=== PATIENT | male | born 1975 | race American Indian/Alaskan Native ===

== ENCOUNTER 2018-09-10 00:56 | Emergency (ER) | payer MEDICARE ==
[2018-09-10 01:34] LABS: Hematocrit 21.3 % (35.5-45.6); Hemoglobin 7.5 gm/dl (11.8-15.2); Mean Corpuscular HGB Conc 35 % (32-34); Mean Corpuscular Volume 102 fl (84-94); Platelet Count 348 K/mm3 (140-440); Red Blood Count 2.08 M/mm3 (3.65-5.03); Red Cell Distribution Width 28.1 % (13.2-15.2)
[2018-09-10 02:15] LABS: Anisocytosis 2+; Band Neutrophils # (Manual) 0.1 K/mm3; Basophils % (Manual) 0 % (0.0-1.8); Hypochromasia 1+; Myelocytes # (Manual) 0.1 K/mm3; Total Cells Counted 100
[2018-09-10 02:16] LABS: Basophilic Stippling 1+; Giant Platelets Few; Ovalocytes Few; Schistocytes 2+; Target Cells 1+
[2018-09-10 02:17] LABS: Howell-Jolly Bodies Few; Large Platelets 1+
[2018-09-10 02:20] VITALS: BP 108/43
--- NOTE | 2018-09-10 03:01 | Emergency Department Report ---
ED General Adult HPI - General Chief complaint: Sickle Cell Crisis Stated complaint: SICKLE CELL PAIN Time Seen by Provider: 09/10/18 02:47 Source: patient, RN notes reviewed, old records reviewed Mode of arrival: Ambulatory Limitations: No Limitations - History of Present Illness Initial comments: This is a 43-year-old gentleman with a reported history of sickle cell disease, reported history of anxiety, depression, and suspected history of substance abuse. Patient presents to the emergency room today with complaint of sickle cell pain. He reports his pain has been present for about the past 4-5 hours. He reports upper, lower extremity pain, and body pain. Denies fevers, chills, chest pain, shortness of breath, urinary symptoms. Reports that he recently moved here from [place]. Reports that he does not have a current pain specialist. Patient reports that his pain increases with palpation, range of motion, decreases with rest, and pain medication. -: Gradual Location: left, right, upper extremity, lower extremity Radiation: non-radiation Severity scale (0 -10): 9 Quality: aching Consistency: other Improves with: other Worsens with: other - Related Data Previous Rx's Medication Instructions Recorded Last Taken Type Oxycodone HCl [Roxicodone] 30 mg PO Q6H #12 tablet 05/30/18 Unknown Rx Folic Acid [Folvite] 1 mg PO DAILY #15 tablet 09/10/18 Unknown Rx Hydroxyurea [Hydrea] 500 mg PO BID #30 capsule 09/10/18 Unknown Rx Allergies Allergy/AdvReac Type Severity Reaction Status Date / Time acetaminophen [From Tylenol] Allergy Hives Verified 06/13/18 14:00 fentanyl Allergy Unknown Verified 09/10/18 00:59 ketorolac [From Toradol] Allergy Unknown Verified 09/10/18 00:59 morphine Allergy Unknown Verified 09/10/18 00:59 tramadol Allergy Unknown Verified 09/10/18 00:59 ED Review of Systems ROS: Stated complaint: SICKLE CELL PAIN Other details as noted in HPI Constitutional: malaise. denies: fever Eyes: denies: eye discharge ENT: denies: epistaxis Respiratory: denies: cough Cardiovascular: denies: chest pain Genitourinary: denies: dysuria Musculoskeletal: back pain, arthralgia, myalgia Skin: denies: lesions Neurological: weakness Psychiatric: anxiety ED Past Medical Hx - Past Medical History Previous Medical History?: Yes Hx Sickle Cell Disease: Yes Hx Psychiatric Treatment: Yes (anxiety, depression) - Surgical History Hx Cholecystectomy: Yes Additional Surgical History: port-a-cath placed and removed - Social History Smoking Status: Current Every Day Smoker Substance Use Type: None - Medications Home Medications: Home Medications Medication Instructions Recorded Confirmed Last Taken Type Oxycodone HCl [Roxicodone] 30 mg PO Q6H #12 tablet 05/30/18 07/10/18 Unknown Rx Folic Acid [Folvite] 1 mg PO DAILY #15 tablet 09/10/18 Unknown Rx Hydroxyurea [Hydrea] 500 mg PO BID #30 capsule 09/10/18 Unknown Rx ED Physical Exam - General Limitations: No Limitations General appearance: alert, in no apparent distress, other (upon entering the room, the patient is sleeping, and in no acute distress.) - Head Head exam: Present: atraumatic, normocephalic - Eye Eye exam: Present: normal appearance, EOMI. Absent: nystagmus - ENT ENT exam: Present: normal exam, normal orophraynx, mucous membranes moist, normal external ear exam - Neck Neck exam: Present: normal inspection, full ROM. Absent: tenderness, meningismus - Respiratory Respiratory exam: Present: normal lung sounds bilaterally. Absent: respiratory distress - Cardiovascular Cardiovascular Exam: Present: regular rate, normal rhythm, normal heart sounds. Absent: bradycardia, irregular rhythm, systolic murmur, diastolic murmur, rubs, gallop - GI/Abdominal GI/Abdominal exam: Present: soft. Absent: distended, tenderness, guarding, rebound, rigid, pulsatile mass - Rectal Rectal exam: Present: deferred - Extremities Exam Extremities exam: Present: normal inspection, full ROM, other (2+ pulses noted in the bilateral upper, lower extremities. Compartments soft. No long bony tenderness. The pelvis is stable.). Absent: pedal edema, joint swelling, calf tenderness - Back Exam Back exam: Present: normal inspection, full ROM. Absent: tenderness, CVA tenderness (R), paraspinal tenderness, vertebral tenderness - Neurological Exam Neurological exam: Present: alert, other (Extraocular movements intact. Tongue midline. No facial droop. Facial sensation intact to light touch in the V1, V2, V3 distribution bilaterally. 5 and 5 strength in 4 extremities.. Sensation is intact to light touch in 4 extremities.). Absent: motor sensory deficit - Psychiatric Psychiatric exam: Present: normal affect, normal mood - Skin Skin exam: Present: warm, dry, intact, normal color. Absent: rash ED Course Vital Signs 09/10/18 09/10/18 01:00 02:15 Temperature 98.4 F 98.3 F Pulse Rate 87 Respiratory 18 18 Rate Blood Pressure 118/40 Blood Pressure 108/43 [Left] O2 Sat by Pulse 95 98 Oximetry ED Medical Decision Making - Lab Data Result diagrams: 09/10/18 01:14 Vital Signs 09/10/18 09/10/18 01:00 02:15 Temperature 98.4 F 98.3 F Pulse Rate 87 Respiratory 18 18 Rate Blood Pressure 118/40 Blood Pressure 108/43 [Left] O2 Sat by Pulse 95 98 Oximetry Lab Results 09/10/18 Range/Units 01:14 WBC 12.1 H (4.5-11.0) K/mm3 RBC 2.08 L (3.65-5.03) M/mm3 Hgb 7.5 L (11.8-15.2) gm/dl Hct 21.3 L (35.5-45.6) % MCV 102 H (84-94) fl MCH 36 H (28-32) pg MCHC 35 H (32-34) % RDW 28.1 H (13.2-15.2) % Plt Count 348 (140-440) K/mm3 Add Manual Diff Complete Total Counted 100 Seg Neuts % (Manual) 82.0 H (40.0-70.0) % Band Neutrophils % 1.0 % Lymphocytes % (Manual) 13.0 L (13.4-35.0) % Reactive Lymphs % (Man) 0 % Monocytes % (Manual) 2.0 (0.0-7.3) % Eosinophils % (Manual) 1.0 (0.0-4.3) % Basophils % (Manual) 0 (0.0-1.8) % Metamyelocytes % 0 % Myelocytes % 1.0 % Promyelocytes % 0 % Blast Cells % 0 % Nucleated RBC % 5.0 H (0.0-0.9) % Seg Neutrophils # Man 9.9 H (1.8-7.7) K/mm3 Band Neutrophils # 0.1 K/mm3 Lymphocytes # (Manual) 1.6 (1.2-5.4) K/mm3 Abs React Lymphs (Man) 0.0 K/mm3 Monocytes # (Manual) 0.2 (0.0-0.8) K/mm3 Eosinophils # (Manual) 0.1 (0.0-0.4) K/mm3 Basophils # (Manual) 0.0 (0.0-0.1) K/mm3 Metamyelocytes # 0.0 K/mm3 Myelocytes # 0.1 K/mm3 Promyelocytes # 0.0 K/mm3 Blast Cells # 0.0 K/mm3 WBC Morphology Not Reportable Hypersegmented Neuts Not Reportable Hyposegmented Neuts Not Reportable Hypogranular Neuts Not Reportable Smudge Cells Not Reportable Toxic Granulation Not Reportable Toxic Vacuolation Not Reportable Dohle Bodies Not Reportable Pelger-Huet Anomaly Not Reportable Hansel Rods Not Reportable Platelet Estimate Appears normal Clumped Platelets Not Reportable Plt Clumps, EDTA Not Reportable Large Platelets 1+ Giant Platelets Few Platelet Satelliting Not Reportable Plt Morphology Comment Not Reportable RBC Morphology Not Reportable Dimorphic RBCs Not Reportable Polychromasia 2+ Hypochromasia 1+ Poikilocytosis Not Reportable Basophilic Stippling 1+ Anisocytosis 2+ Microcytosis Not Reportable Macrocytosis Not Reportable Spherocytes Not Reportable Pappenheimer Bodies Not Reportable Sickle Cells Not Reportable Target Cells 1+ Tear Drop Cells Not Reportable Ovalocytes Few Helmet Cells Not Reportable [place] Bodies Few [place] Rings Not Reportable Dyan Cells Not Reportable Bite Cells Not Reportable Crenated Cell Not Reportable Elliptocytes 1+ Acanthocytes (Spur) Not Reportable Rouleaux Not Reportable Hemoglobin C Crystals Not Reportable Schistocytes 2+ Malaria parasites Not Reportable Percent Retic 14.76 H (0.78-2.58) % Nato Bodies Not Reportable Hem Pathologist Commnt No - Medical Decision Making Differential diagnosis, including but not limited to: Sickle cell trait, sickle cell disease chronic sickle cell, narcotic dependent Assessment and plan: 43-year-old gentleman with a reported history of sickle cell disease. The patient is afebrile with reassuring vital signs. He walks back to the room with no difficulty. When I go in to assess the patient, he is sleeping comfortably, and in no acute distress. He is apparently allergic to multiple medications. He does not appear to have an emergent medical condition at this time. The [place] prescription database was reviewed and consulted. 08/21/2018 2 08/21/2018 OXYCODONE HCL 5 MG TABLET 6.0 1 AU PHA [id number] AU ME ([id number]) 0 45.0 MME Comm Ins [place] 05/01/2018 5 05/01/2018 OXYCODONE HCL 30 MG TABLET 24.0 6 SH POD [id number] JUDD ([id number]) 0 180.0 MME Private Pay [place] 04/21/2018 2 04/21/2018 OXYCODONE-ACETAMINOPHEN 5-325 10.0 3 NE RONNI [id number] [facility] ([id number]) 0 25.0 MME Medicare [place] 03/25/2018 3 03/25/2018 OXYCODONE HCL 5 MG TABLET 25.0 3 JA CAT [id number] [facility] ([id number]) 0 62.5 [place] 02/17/2018 2 02/07/2018 OXYCODONE HCL 10 MG TABLET 20.0 5 PH RAE [id number] [facility] ([id number]) 0 60.0 [place] 02/10/2018 4 01/31/2018 OXYCODONE HCL 10 MG TABLET 20.0 5 FI RICARDO [id number] [facility] ([id number]) 0 60.0 [place] 10/22/2017 1 10/22/2017 OXYCODONE HCL 5 MG TABLET 44.0 7 AU PHA [id number] BARNE ([id number]) 0 47.14 MME Comm Ins [place] 09/17/2017 5 09/17/2017 OXYCODONE HCL 5 MG TABLET 20.0 3 ALEXEY PRE [id number] JUDD ([id number]) 0 50.0 MME Private Pay The patient will be referred to an outpatient pain specialist and byproducts supervisor. As per review of old prescriptions, he has been given oxycodone in the past. Therefore, he will be given oral oxycodone as a single dose in the emergency room, and he will be discharged with folic acid, hydroxyurea, and instructions to follow up with a pain specialist or byproducts supervisor. Critical care attestation.: If time is entered above; I have spent that time in minutes in the direct care of this critically ill patient, excluding procedure time. ED Disposition Clinical Impression: History of sickle cell disease Disposition: DC- TO HOME OR SELFCARE Is pt being admited?: No Does the pt Need Aspirin: No Condition: Stable Instructions: Sickle Cell Crisis (ED) Additional Instructions: Take the medications as needed/directed. Follow up with the primary care doctor , byproducts supervisor or pain specialist as soon as possible to initiate outpatient primary care and pain management. Please return to the emergency room right away with new, worsening or different symptoms. Referrals: TEQUILA SALAS DO [Staff Physician] - 3-5 Days CINDY GAMBLE MD [Staff Physician] - 3-5 Days MICAELA ROBERSON MD [Staff Physician] - 3-5 Days
[2018-09-10] MEDS ORDERED: ROXICODONE PO ONE (03:11)
[2018-09-10 09:56] LABS: Basophils # (Auto) 0.1 K/mm3 (0.0-0.1); Eosinophils # (Auto) 0.1 K/mm3 (0.0-0.4); Eosinophils % (Auto) 0.7 % (0.0-4.3); Monocytes % (Auto) 8.3 % (0.0-7.3)
== END 2018-09-10 03:52 | disposition home or self-care (01) ==
LOC: ED 00:56
DX: D57.1 Sickle-cell disease without crisis (principal); F41.9 Anxiety disorder, unspecified; F32.9 Major depressive disorder, single episode, unspecified; F17.200 Nicotine dependence, unspecified, uncomplicated; Z88.5 Allergy status to narcotic agent; Z88.6 Allergy status to analgesic agent; Z88.8 Allergy status to other drugs, medicaments and biological substances
CPT/HCPCS: 36415; 85007; 85025; 85045

== ENCOUNTER 2018-10-01 01:40 | Emergency (ER) | payer MEDICARE ==
[2018-10-01 02:14] VITALS: BP 107/54
[2018-10-01] MEDS ORDERED: D5NS 0.2% 1,000 ML IV SCH (03:00)
== END 2018-10-01 02:59 | disposition left against medical advice (07) ==
LOC: ED 01:40
DX: D57.819 Other sickle-cell disorders with crisis, unspecified (principal); Z53.21 Procedure and treatment not carried out due to patient leaving prior to being seen by health care provider

== ENCOUNTER 2019-04-17 20:51 | Emergency (ER) | payer MEDICARE ==
--- NOTE | 2019-04-17 21:13 | Event Note ---
ED Screening Note Date of service: 04/17/19 Time: 21:09 ED Screening Note: This is a 43 y.o. M. that presents to the ER with generalized pain. Patient states he was discharged from [facility] after hydration. Reports worsening generalized pain. This initial assessment/diagnostic orders/clinical plan/treatment(s) is/are subject to change based on patients health status, clinical progression and re- assessment by fellow clinical providers in the ED. Further treatment and workup at subsequent clinical providers discretion. Patient/guardian urged not to elope from the ED as their condition may be serious if not clinically assessed and managed. Initial orders include: Labs
[2019-04-17 21:14] VITALS: BP 104/67
== END 2019-04-17 22:00 | disposition left against medical advice (07) ==
LOC: ED 20:51
DX: M79.10 Myalgia, unspecified site (principal); Z53.21 Procedure and treatment not carried out due to patient leaving prior to being seen by health care provider

== ENCOUNTER 2019-05-29 21:47 | Emergency (ER) | payer MEDICARE ==
--- NOTE | 2019-05-29 22:00 | Emergency Department Report ---
Blank Doc - Documentation Documentation: 43 y/o male with reported sicke cell c/o of diffuse aches and pain. No sob, he adache or chest pain This initial assessment/diagnostic orders/clinical plan/treatment(s) is/are subject to change based on patient's health status, clinical progression and re- assessment by fellow clinical providers in the ED. Further treatment and workup at subsequent clinical providers discretion. Patient/guardians urged not to elope from the ED as their condition may be serious if not clinically assessed and managed. Initial orders include:
[2019-05-29 23:51] LABS: Basophils # (Auto) 0.2 K/mm3 (0.0-0.1); Basophils % (Auto) 1.7 % (0.0-1.8); Eosinophils # (Auto) 0.2 K/mm3 (0.0-0.4); Eosinophils % (Auto) 1.8 % (0.0-4.3); Hematocrit 27.7 % (35.5-45.6); Hemoglobin 9.5 gm/dl (11.8-15.2); Lymphocytes # (Auto) 1.8 K/mm3 (1.2-5.4); Lymphocytes % (Auto) 18.5 % (13.4-35.0); Mean Corpuscular HGB Conc 34 % (32-34); Mean Corpuscular Volume 105 fl (84-94); Monocytes % (Auto) 10.3 % (0.0-7.3); Platelet Count 340 K/mm3 (140-440); Red Blood Count 2.64 M/mm3 (3.65-5.03)
[2019-05-29 23:57] LABS: Red Cell Distribution Width 24.5 % (13.2-15.2)
[2019-05-30] MEDS ORDERED: BENADRYL IM ONE (01:17)
[2019-05-30] MEDS ORDERED: DILAUDID IM ONE ×2 (01:17→02:38)
[2019-05-30] MEDS ORDERED: ZOFRAN ODT PO ONE (01:17)
[2019-05-30] MEDS ORDERED: BENADRYL PO ONE (01:17)
--- NOTE | 2019-05-30 01:21 | Emergency Department Report ---
ED General Adult HPI - General Chief complaint: Sickle Cell Crisis Stated complaint: SICKLE CELL CRISIS Time Seen by Provider: 05/29/19 21:59 Source: patient, EMS Mode of arrival: Wheelchair Limitations: Physical Limitation - History of Present Illness Initial comments: 43-year-old male with a past medical history of sickle cell disease presents to the hospital complaints of pain secondary to sickle cell crisis started 1 hour prior to arrival. Complains of pain to bilateral knees, hips, shoulders, and ribs rated 10/10 in intensity. Patient taken oxycodone 10 mg without improvement. He denies fever or shortness of breath. 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 Patient moved here from [facility] 2 months ago and does not have a local float builder. His first visit with a float builder as scheduled for June 24. She does not have a port. Patient does not have a port. 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 - Related Data Previous Rx's Medication Instructions Recorded Last Taken Type Oxycodone HCl [Roxicodone] 30 mg PO Q6H #12 tablet 05/30/18 Unknown Rx Folic Acid [Folvite] 1 mg PO DAILY #15 tablet 09/10/18 Unknown Rx Hydroxyurea [Hydrea] 500 mg PO BID #30 capsule 09/10/18 Unknown Rx Oxycodone HCl [oxyCODONE] 10 mg PO Q6H PRN #15 tablet 05/30/19 Unknown Rx Allergies Allergy/AdvReac Type Severity Reaction Status Date / Time acetaminophen [From Tylenol] Allergy Hives Verified 06/13/18 14:00 fentanyl Allergy Unknown Verified 09/10/18 00:59 ketorolac [From Toradol] Allergy Unknown Verified 09/10/18 00:59 morphine Allergy Unknown Verified 09/10/18 00:59 tramadol Allergy Unknown Verified 09/10/18 00:59 ED Review of Systems ROS: Stated complaint: SICKLE CELL CRISIS Other details as noted in HPI Comment: All other systems reviewed and negative ED Past Medical Hx - Past Medical History Previous Medical History?: Yes Hx Sickle Cell Disease: Yes Hx Psychiatric Treatment: Yes (anxiety, depression) Additional medical history: DVT bilateral - Surgical History Past Surgical History?: Yes Hx Cholecystectomy: Yes Additional Surgical History: port-a-cath placed and removed - Social History Smoking Status: Never Smoker Substance Use Type: None - Medications Home Medications: Home Medications Medication Instructions Recorded Confirmed Last Taken Type Oxycodone HCl [Roxicodone] 30 mg PO Q6H #12 tablet 05/30/18 07/10/18 Unknown Rx Folic Acid [Folvite] 1 mg PO DAILY #15 tablet 09/10/18 Unknown Rx Hydroxyurea [Hydrea] 500 mg PO BID #30 capsule 09/10/18 Unknown Rx Oxycodone HCl [oxyCODONE] 10 mg PO Q6H PRN #15 tablet 05/30/19 Unknown Rx ED Physical Exam - General Limitations: Physical Limitation - Other Other exam information: General: No acute distress Head: Atraumatic Eyes: normal appearance ENT: Moist mucous membranes Neck: Normal appearance, no midline tenderness Chest: Clear to auscultation bilaterally CV: Regular rate and rhythm Abdomen: Soft, normal bowel sounds, nontender, nondistended, no rebound or guarding Back: Normal inspection Extremity: Normal inspection infection, pain with movement of bilateral hips Neuro: Alert O x 3, no facial asymmetry, speech clear, no gross motor sensory deficit Psych: Appropriate behavior Skin: No rash ED Course Vital Signs 05/29/19 05/30/19 05/30/19 21:52 01:29 01:30 Temperature 98.4 F 98.6 F Pulse Rate 84 60 Respiratory 18 14 Rate Blood Pressure 98/53 102/46 Blood Pressure 100/52 [Left] O2 Sat by Pulse 97 99 98 Oximetry 05/30/19 05/30/19 05/30/19 02:00 02:30 03:30 Temperature Pulse Rate Respiratory Rate Blood Pressure 102/50 101/40 100/52 Blood Pressure [Left] O2 Sat by Pulse 98 98 Oximetry 05/30/19 04:00 Temperature Pulse Rate Respiratory Rate Blood Pressure 102/53 Blood Pressure [Left] O2 Sat by Pulse Oximetry - Reevaluation(s) Reevaluation #1: 05/30/19 01:21 Patient declines IV access at this time stating he is a hard stick and prefers IM medication. Informed him that we are unable to hydrate him 05/30/19 05:42 ED stay patient was eventually agreeable to receiving IV and received additional IV Dilaudid in addition to IV fluids. Pain is controlled at this time he will be discharged. ED Medical Decision Making - Lab Data Result diagrams: 05/29/19 23:04 Lab Results 10/25/19 Range/Units 23:04 WBC 9.7 (4.5-11.0) K/mm3 RBC 2.64 L (3.65-5.03) M/mm3 Hgb 9.5 L (11.8-15.2) gm/dl Hct 27.7 L (35.5-45.6) % MCV 105 H (84-94) fl MCH 36 H (28-32) pg MCHC 34 (32-34) % RDW 24.5 H (13.2-15.2) % Plt Count 340 (140-440) K/mm3 Lymph % (Auto) 18.5 (13.4-35.0) % [place] % (Auto) 10.3 H (0.0-7.3) % Eos % (Auto) 1.8 (0.0-4.3) % Baso % (Auto) 1.7 (0.0-1.8) % Lymph # 1.8 (1.2-5.4) K/mm3 [place]s # 1.0 H (0.0-0.8) K/mm3 Eos # 0.2 (0.0-0.4) K/mm3 Baso # 0.2 H (0.0-0.1) K/mm3 Seg Neutrophils % 67.7 (40.0-70.0) % Seg Neutrophils # 6.6 (1.8-7.7) K/mm3 Percent Retic 9.50 H (0.78-2.58) % - Medical Decision Making [place] prescriptive monitoring [place]. Patient has multiple prescribers for narcotics. Patient states this is because he does not have a float builder. Most recently on 05/28 patient had 20 tabs of oxycodone 10 prescribed which should last 5 days. 05/22 patient also received a prescription for both oxycodone 10 mg ER (#14) and oxycodone 10 mg. (#16) No signs of infection or significant anemia requiring transfusion at this time - Differential Diagnosis pain crisis, anemia, narcotic dependent Critical Care Time: No Critical care attestation.: If time is entered above; I have spent that time in minutes in the direct care of this critically ill patient, excluding procedure time. ED Disposition Clinical Impression: Sickle cell crisis, Narcotic dependence Disposition: - TO HOME OR SELFCARE Is pt being admited?: No Does the pt Need Aspirin: No Condition: Stable Instructions: Sickle Cell Crisis (ED) Additional Instructions: Take the medication as prescribed. Follow-up with your doctor or doctor/clinic provided. Return if symptoms worsen as indicated by your discharge instructions. Prescriptions: Oxycodone HCl [oxyCODONE] 10 mg PO Q6H PRN #15 tablet PRN Reason: Pain Referrals: [facility] MD TING [Primary Care Provider] - 3-5 Days TEQUILA SALAS DO [Staff Physician] - 3-5 Days (float builder ) Time of Disposition: 05:42
[2019-05-30] MEDS ORDERED: D5NS 0.2% 1,000 ML IV SCH (04:00)
[2019-05-30] MEDS ORDERED: DILAUDID IV ONE (04:22)
[2019-05-30 04:42] VITALS: BP 102/53
== END 2019-05-30 06:00 | disposition home or self-care (01) ==
LOC: ED 21:47
DX: D57.00 Hb-SS disease with crisis, unspecified (principal); F11.20 Opioid dependence, uncomplicated; F41.9 Anxiety disorder, unspecified; F32.9 Major depressive disorder, single episode, unspecified; Z88.5 Allergy status to narcotic agent; Z88.8 Allergy status to other drugs, medicaments and biological substances; Z79.899 Other long term (current) drug therapy; Z90.49 Acquired absence of other specified parts of digestive tract
CPT/HCPCS: 36415; 85025; 85045; 96372; 96374; 99284; J1170; J1200; Q0162

== ENCOUNTER 2019-12-10 12:10 | Inpatient (IN) | payer MEDICARE ==
[2019-12-10] MEDS ORDERED: diphenhydrAMINE 50 MG/ML VIAL IV ONE (12:46)
[2019-12-10] MEDS ORDERED: ONDANSETRON 4 MG/2 ML INJ IV ONE (12:46)
[2019-12-10] MEDS ORDERED: HYDROmorphone 1 MG/1 ML INJ IV ONE ×3 (12:46→17:23)
--- NOTE | 2019-12-10 12:46 | Emergency Department Report ---
ED General Adult HPI - General Chief complaint: Sickle Cell Crisis Stated complaint: SICKLE CELL Time Seen by Provider: 12/10/19 12:25 Source: patient Mode of arrival: Wheelchair Limitations: No Limitations - History of Present Illness Initial comments: Mr. Cuadra is a 44 yo male with hx of SCD Hgb SS disease who presents with diffuse pain since this morning. Denies fever, cough or chest pain. Severe 10/10 pain. Recently moved from [place] 3 months ago after the of his father. No PCP or clinical research assistant. During the pandemic, he has struggled to find a physician for outpatient care. Consequently, he does not have any home medication. No sick contacts. -: Gradual, This morning Location: left, right, upper extremity, lower extremity Consistency: constant Improves with: none Worsens with: none Associated Symptoms: denies other symptoms - Related Data Previous Rx's Medication Instructions Recorded Last Taken Type Oxycodone HCl [roxiCODONE] 30 mg PO Q6H #12 tablet 05/30/18 Unknown Rx Hydroxyurea [Hydrea] 500 mg PO BID #30 capsule 09/10/18 Unknown Rx Folic Acid [Folvite] 1 mg PO DAILY #15 tablet 11/20/19 Unknown Rx Oxycodone HCl [oxyCODONE] 10 mg PO Q6H PRN #15 tablet 11/20/19 Unknown Rx Allergies Allergy/AdvReac Type Severity Reaction Status Date / Time acetaminophen [From Tylenol] Allergy Hives Verified 06/13/18 14:00 fentanyl Allergy Unknown Verified 09/10/18 00:59 ketorolac [From Toradol] Allergy Unknown Verified 09/10/18 00:59 morphine Allergy Unknown Verified 09/10/18 00:59 tramadol Allergy Unknown Verified 09/10/18 00:59 ED Review of Systems ROS: Stated complaint: SICKLE CELL Other details as noted in HPI Comment: All other systems reviewed and negative Constitutional: malaise. denies: chills, fever Respiratory: denies: cough, shortness of breath Cardiovascular: denies: chest pain Gastrointestinal: denies: abdominal pain, nausea, vomiting Musculoskeletal: myalgia ED Past Medical Hx - Past Medical History Previous Medical History?: Yes Hx Sickle Cell Disease: Yes Hx Psychiatric Treatment: Yes (anxiety, depression) Additional medical history: DVT bilateral - Surgical History Past Surgical History?: Yes Hx Cholecystectomy: Yes Additional Surgical History: port-a-cath placed and removed - Social History Smoking Status: Never Smoker Substance Use Type: None - Medications Home Medications: Home Medications Medication Instructions Recorded Confirmed Last Taken Type Oxycodone HCl [roxiCODONE] 30 mg PO Q6H #12 tablet 05/30/18 11/19/19 Unknown Rx Hydroxyurea [Hydrea] 500 mg PO BID #30 capsule 09/10/18 11/19/19 Unknown Rx Folic Acid [Folvite] 1 mg PO DAILY #15 tablet 11/20/19 Unknown Rx Oxycodone HCl [oxyCODONE] 10 mg PO Q6H PRN #15 tablet 11/20/19 Unknown Rx ED Physical Exam - General Limitations: No Limitations General appearance: alert, in no apparent distress - Head Head exam: Present: atraumatic, normocephalic - Eye Eye exam: Present: normal appearance - ENT ENT exam: Present: normal orophraynx, mucous membranes dry - Neck Neck exam: Present: normal inspection, full ROM - Respiratory Respiratory exam: Present: normal lung sounds bilaterally. Absent: respiratory distress, wheezes, rales, rhonchi - Cardiovascular Cardiovascular Exam: Present: regular rate, normal rhythm, normal heart sounds. Absent: systolic murmur, diastolic murmur, rubs, gallop - GI/Abdominal GI/Abdominal exam: Present: soft, normal bowel sounds. Absent: distended, tenderness, guarding, rebound - Rectal Rectal exam: Present: deferred - Extremities Exam Extremities exam: Present: normal inspection - Neurological Exam Neurological exam: Present: alert, oriented X3 - Psychiatric Psychiatric exam: Present: normal affect, normal mood - Skin Skin exam: Present: warm, dry, intact, normal color. Absent: rash ED Course Vital Signs 12/10/19 12/10/19 12/10/19 12:16 14:08 14:28 Temperature 100.4 F H Pulse Rate 89 67 77 Respiratory 20 12 19 Rate Blood Pressure 108/51 Blood Pressure 100/46 [Right] O2 Sat by Pulse 99 98 97 Oximetry 12/10/19 12/10/19 12/10/19 14:30 14:46 15:30 Temperature Pulse Rate 70 66 68 Respiratory 20 15 17 Rate Blood Pressure 100/46 100/46 90/38 Blood Pressure [Right] O2 Sat by Pulse 98 99 97 Oximetry 12/10/19 16:00 Temperature Pulse Rate 56 L Respiratory 15 Rate Blood Pressure 91/35 Blood Pressure [Right] O2 Sat by Pulse 99 Oximetry ED Medical Decision Making - Lab Data Result diagrams: 12/10/19 13:59 12/10/19 13:59 Laboratory Results - last 24 hr 12/10/19 12/10/19 13:59 13:59 WBC 12.7 H RBC 3.02 L Hgb 9.6 L Hct 27.8 L MCV 92 MCH 32 MCHC 34 RDW 24.2 H Plt Count 545 H Lymph % (Auto) 6.0 L Harvey % (Auto) 4.2 Eos % (Auto) 0.1 Baso % (Auto) 0.9 Lymph # 0.8 L Harvey # 0.5 Eos # 0.0 Baso # 0.1 Seg Neutrophils % 88.8 H Seg Neutrophils # 11.3 H Percent Retic 3.10 H Sodium 139 Potassium 3.2 L Chloride 102.8 Carbon Dioxide 23 Anion Gap 16 BUN 10 Creatinine 1.0 Estimated GFR > 60 BUN/Creatinine Ratio 10 Glucose 97 Calcium 9.1 Total Bilirubin 1.80 H AST 78 H ALT 74 H Alkaline Phosphatase 131 H Total Protein 6.8 Albumin 4.0 Albumin/Globulin Ratio 1.4 - Radiology Data Radiology results: report reviewed Chest x-ray: No acute findings - Medical Decision Making Sickle cell disease crisis with low-grade fever 100.4 Fahrenheit, Admitted to hospital service for further treatment and evaluation, patient has severe pain unrelenting with medications provided in the emergency department Critical care attestation.: If time is entered above; I have spent that time in minutes in the direct care of this critically ill patient, excluding procedure time. ED Disposition Clinical Impression: Sickle cell anemia with crisis, Intractable pain, Generalized pain, Transaminitis Disposition: OP ADMIT IP TO THIS HOSP Is pt being admited?: Yes Does the pt Need Aspirin: No Condition: Stable
[2019-12-10] MEDS ORDERED: D5W/0.2% NACL 1,000 ML IV SCH (13:00)
--- NOTE | 2019-12-10 13:11 | XRay Report ---
CHEST 1 VIEW 12/10/2019 12:05 PM INDICATION / CLINICAL INFORMATION: fever. COMPARISON: None available. FINDINGS: SUPPORT DEVICES: None. HEART / MEDIASTINUM: No significant abnormality. LUNGS / PLEURA: No significant pulmonary or pleural abnormality. No pneumothorax. ADDITIONAL FINDINGS: No significant additional findings. IMPRESSION: 1. No acute findings. Signer Name: Florentin Mar MD Signed: 12/10/2019 1:07 PM Workstation Name: [id number]
[2019-12-10 14:29] LABS: Basophils # (Auto) 0.1 K/mm3 (0.0-0.1); Basophils % (Auto) 0.9 % (0.0-1.8); Eosinophils % (Auto) 0.1 % (0.0-4.3); Hematocrit 27.8 % (35.5-45.6); Hemoglobin 9.6 gm/dl (11.8-15.2); Lymphocytes # (Auto) 0.8 K/mm3 (1.2-5.4); Mean Corpuscular HGB Conc 34 % (32-34); Mean Corpuscular Volume 92 fl (84-94); Monocytes # (Auto) 0.5 K/mm3 (0.0-0.8); Monocytes % (Auto) 4.2 % (0.0-7.3); Platelet Count 545 K/mm3 (140-440); Red Blood Count 3.02 M/mm3 (3.65-5.03)
[2019-12-10 14:35] LABS: Red Cell Distribution Width 24.2 % (13.2-15.2)
[2019-12-10] MEDS ORDERED: HYDROmorphone 2 MG/1 ML INJ IV ONE (14:38)
[2019-12-10] MEDS ORDERED: HYDROmorphone 1 MG/1 ML INJ ONE ×2 (14:48→19:50)
[2019-12-10 14:54] LABS: Alanine Aminotransferase 74 units/L (7-56); BUN/Creatinine Ratio 10; Blood Urea Nitrogen 10 mg/dL (9-20); Calcium 9.1 mg/dL (8.4-10.2); Hemolysis Index 3
[2019-12-10] MEDS ORDERED: SODIUM CHLORIDE 0.9% 1000 ML 1,000 ML IV ONE (16:29)
[2019-12-10] MEDS ORDERED: NON-FORMULARY EACH (Oxycodone Hcl [Oxycodone] 10 MG) PO PRN (19:42)
--- NOTE | 2019-12-10 19:42 | Event Note ---
Date: 12/10/19 See history and physical in the reports Sickle cell crisis Pain management
[2019-12-10] MEDS ORDERED: ONDANSETRON 4 MG/2 ML INJ IV PRN ×2 (19:43→19:46)
[2019-12-10] MEDS ORDERED: ACETAMINOPHEN 325 MG TAB PO PRN ×2 (19:43→19:46)
[2019-12-10] MEDS ORDERED: METOCLOPRAMIDE 10 MG/2 ML INJ IV PRN (19:46)
[2019-12-10] MEDS: HYDROmorphone 1 MG/1 ML INJ IV PRN ×2 (19:52→22:59)
[2019-12-10] MEDS ORDERED: D5W/0.9% NACL 1,000 ML IV ONE (21:17)
[2019-12-10] MEDS ORDERED: FOLIC ACID 1 MG TAB ONE (21:17)
[2019-12-10] MEDS ORDERED: oxyCODONE 5 MG TAB ONE (21:18)
[2019-12-10] MEDS: FOLIC ACID 1 MG TAB PO SCH (21:21)
[2019-12-10] MEDS: oxyCODONE 5 MG TAB PO PRN (21:21)
[2019-12-10] MEDS: D5W/0.9% NACL 1,000 ML IV SCH (21:22)
--- NOTE | 2019-12-11 01:46 | History and Physical Report ---
CHIEF COMPLAINT: 1. Pain all over. 2. Sickle cell crisis. HISTORY OF PRESENT ILLNESS: This is a 44-year-old male with history of sickle cell disease, comes in for pain all over, pain since a.m. Pain is 10 on a scale of 1-10. The patient recently moved from [place] to [place] because of a of his father. 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 He is not able to find a PCP because of the pandemic going on. PAST MEDICAL HISTORY: Significant for sickle cell disease, anxiety and depression and bilateral DVTs. PAST SURGICAL HISTORY: Has a Port-A-Cath, which was removed. Also, cholecystectomy. SOCIAL HISTORY: Does not smoke. FAMILY HISTORY: Hypertension. CURRENT MEDICATIONS: Folic acid, hydroxyurea and oxycodone. REVIEW OF SYSTEMS: Significant for pain all over, consistent with sickle cell crisis. PHYSICAL EXAMINATION: GENERAL: Middle-aged male, cooperative during examination. VITAL SIGNS: Blood pressure is 89/43, 108/51, temperature is 100.4, pulse is 89, and respiratory rate is 20. HEENT: Unremarkable. Pupils are equal and reactive. NECK: Supple, no lymphadenopathy, no thyromegaly. LUNGS: Clear to auscultation and percussion. Good air entry. CARDIOVASCULAR: S1, S2 heard. No gallop, no murmur, no rub. Apical impulse in left fifth intercostal space and midclavicular line. ABDOMEN: Soft and benign. No hepatosplenomegaly, no guarding, no rigidity. Hernial orifices are normal. EXTREMITIES: Good pedal pulses. No pedal edema. CENTRAL NERVOUS SYSTEM: Alert and oriented x 4, nonfocal exam. SKIN: Normal. LABORATORY DATA: Significant for white count of 12,700, retic count is 3.1, H and H is 9.6 and 27.8. Potassium is 3.2. AST is 78 and ALT 74. ASSESSMENT AND PLAN: 1. Sickle cell crisis. IV fluids, IV Dilaudid 2 mg q. 3 hours p.r.n. and oxycodone 10 mg q.6 hours started. 2. Leukocytosis secondary to demyelination. 3. Hypokalemia, supplemented. 4. Transaminitis. Check hepatitis profile. Possible secondary to fatty liver. 5. Deep venous thrombosis prophylaxis, heparin 5000 q. 12 hours. JOB# [id number] SAKINA/SALBADOR
[2019-12-11] MEDS: POTASSIUM CHLORIDE ER 20 MEQ TAB PO SCH ×2 (01:59→06:28)
[2019-12-11] MEDS: HYDROmorphone 1 MG/1 ML INJ IV PRN ×4 (02:00→12:37)
[2019-12-11 02:27] LABS: Hepatitis C Virus Antibody Non-Reactive (NonReactive)
[2019-12-11 02:55] LABS: Basophils # (Auto) 0.1 K/mm3 (0.0-0.1); Eosinophils % (Auto) 0.2 % (0.0-4.3); Hematocrit 23.4 % (35.5-45.6); Hemoglobin 8.1 gm/dl (11.8-15.2); Lymphocytes % (Auto) 14.1 % (13.4-35.0); Mean Corpuscular HGB Conc 35 % (32-34); Mean Corpuscular Volume 91 fl (84-94); Monocytes # (Auto) 0.8 K/mm3 (0.0-0.8); Monocytes % (Auto) 11.6 % (0.0-7.3); Platelet Count 434 K/mm3 (140-440); Red Blood Count 2.56 M/mm3 (3.65-5.03); Red Cell Distribution Width 24.3 % (13.2-15.2)
[2019-12-11 03:10] LABS: Hepatitis B Surface Antigen Non-Reactive (Negative)
[2019-12-11 03:14] LABS: Alanine Aminotransferase 72 units/L (7-56); Albumin 3.6 g/dL (3.9-5); BUN/Creatinine Ratio 8; Blood Urea Nitrogen 7 mg/dL (9-20); Calcium 8.2 mg/dL (8.4-10.2); Hemolysis Index 5
[2019-12-11] MEDS: D5W/0.9% NACL 1,000 ML IV SCH ×2 (06:27→17:07)
[2019-12-11] MEDS: oxyCODONE 5 MG TAB PO PRN ×3 (08:58→23:46)
[2019-12-11] MEDS ORDERED: MAGNESIUM HYDROXIDE (MOM) ORAL LIQD UDC PO PRN (08:59)
--- NOTE | 2019-12-11 09:02 | Progress Note ---
Assessment and Plan Assessment and plan: Sickle cell vaso-occlusive crisis Admitted to Tele Add long acting Oxycontin continue prn narcotics iv fluid Hypokalemia Now resolved Hyponatremia iv fluids Elevated LFT Will monitor. History Interval history: generalized body pain Hospitalist Physical - Physical exam Narrative exam: GEN: Not in acute distress, obese, lying in bed HEENT: Normocephalic, atraumatic, Neck: supple, No JVD Lungs: Clear to auscultation bilaterally, heart;S1 and S2 reg, no murmurs, rubs or gallop Abd:soft, non tender, non distended, normal bowel sounds, Ext: No edema, no clubbing, no cyanosis, Neuro: Awake,alert,oriented X3 , no focal signs, - Constitutional Vitals: Temp Pulse Resp BP Pulse Ox 98.5 F 72 15 101/36 94 12/11/19 04:06 12/11/19 04:06 12/11/19 08:58 12/11/19 04:06 12/11/19 04:06 Results - Labs CBC & Chem 7: 12/11/19 02:13 12/11/19 02:13 Labs: Laboratory Last Values WBC 7.1 K/mm3 (4.5-11.0) 12/11/19 02:13 RBC 2.56 M/mm3 (3.65-5.03) L 12/11/19 02:13 Hgb 8.1 gm/dl (11.8-15.2) L 12/11/19 02:13 Hct 23.4 % (35.5-45.6) L 12/11/19 02:13 MCV 91 fl (84-94) 12/11/19 02:13 MCH 32 pg (28-32) 12/11/19 02:13 MCHC 35 % (32-34) H 12/11/19 02:13 RDW 24.3 % (13.2-15.2) H 12/11/19 02:13 Plt Count 434 K/mm3 (140-440) 12/11/19 02:13 Lymph % (Auto) 14.1 % (13.4-35.0) 12/11/19 02:13 [place] % (Auto) 11.6 % (0.0-7.3) H 12/11/19 02:13 Eos % (Auto) 0.2 % (0.0-4.3) 12/11/19 02:13 Baso % (Auto) 1.0 % (0.0-1.8) 12/11/19 02:13 Lymph # 1.0 K/mm3 (1.2-5.4) L 12/11/19 02:13 [place] # 0.8 K/mm3 (0.0-0.8) 12/11/19 02:13 Eos # 0.0 K/mm3 (0.0-0.4) 12/11/19 02:13 Baso # 0.1 K/mm3 (0.0-0.1) 12/11/19 02:13 Seg Neutrophils % 73.1 % (40.0-70.0) H 12/11/19 02:13 Seg Neutrophils # 5.1 K/mm3 (1.8-7.7) 12/11/19 02:13 Percent Retic 3.10 % (0.78-2.58) H 12/10/19 13:59 Sodium 134 mmol/L (137-145) L 12/11/19 02:13 Potassium 3.6 mmol/L (3.6-5.0) 12/11/19 02:13 Chloride 101.1 mmol/L (98-107) 12/11/19 02:13 Carbon Dioxide 22 mmol/L (22-30) 12/11/19 02:13 Anion Gap 15 mmol/L 12/11/19 02:13 BUN 7 mg/dL (9-20) L 12/11/19 02:13 Creatinine 0.9 mg/dL (0.8-1.5) 12/11/19 02:13 Estimated GFR > 60 ml/min 12/11/19 02:13 BUN/Creatinine Ratio 8 % 12/11/19 02:13 Glucose 110 mg/dL (75-100) H 12/11/19 02:13 Hemoglobin A1c 4.9 % (4-6) 12/11/19 02:13 Calcium 8.2 mg/dL (8.4-10.2) L 12/11/19 02:13 Total Bilirubin 1.90 mg/dL (0.1-1.2) H 12/11/19 02:13 AST 80 units/L (5-40) H 12/11/19 02:13 ALT 72 units/L (7-56) H 12/11/19 02:13 Alkaline Phosphatase 103 units/L (35-129) 12/11/19 02:13 Total Protein 6.0 g/dL (6.3-8.2) L 12/11/19 02:13 Albumin 3.6 g/dL (3.9-5) L 12/11/19 02:13 Albumin/Globulin Ratio 1.5 % 12/11/19 02:13 Hepatitis A IgM Ab Non-reactive (NonReactive) 12/11/19 01:41 Hep Bs Antigen Non-reactive (Negative) 12/11/19 01:41 Hep B Core IgM Ab Non-reactive (NonReactive) 12/11/19 01:41 Hepatitis C Antibody Non-reactive (NonReactive) 12/11/19 01:41 Microbiology: Microbiology 12/10/19 13:59 Peripheral/Venous Blood Culture - Preliminary Culture in Progress 12/10/19 13:59 Peripheral/Venous Blood Culture - Preliminary Culture in Progress Castrejon/IV: Voiding Method Urinal IV Catheter Type [Left INT / Saline Lock Antecubital] IV Catheter Type [Right INT / Saline Lock Forearm] Active Medications - Current Medications Current Medications: Generic Name Dose Route Start Last Admin Trade Name Freq PRN Reason Stop Dose Admin Acetaminophen 650 mg 12/10/19 19:43 Tylenol PO Q4H PRN Pain MILD(1-3)/Fever >100.5/URIAS Folic Acid 1 mg 12/10/19 20:00 12/10/19 21:21 Folvite PO 1 mg DAILY MALISSA Administration Hydromorphone HCl 2 mg 12/10/19 19:43 12/11/19 06:30 Dilaudid IV 2 mg Q3H PRN Administration Pain , Severe (7-10) Hydroxyurea 500 mg 12/10/19 22:00 12/11/19 00:00 Hydroxyurea PO Not Given BID MALISSA Dextrose/Sodium Chloride 1,000 mls @ 125 mls/hr 12/10/19 20:00 12/11/19 06:27 D5ns IV 125 mls/hr DIRECT MALISSA Administration Magnesium Hydroxide 30 ml 12/11/19 08:59 Milk Of Magnesia PO Q4H PRN Constipation Metoclopramide HCl 10 mg 12/10/19 19:46 Reglan IV Q6H PRN Nausea And Vomiting Ondansetron HCl 4 mg 12/10/19 19:46 Zofran IV Q8H PRN Nausea And Vomiting Oxycodone HCl 10 mg 12/10/19 20:00 12/11/19 08:58 Roxicodone PO 10 mg Q6H PRN Administration Pain, Moderate (4-6) Oxycodone HCl 20 mg 12/11/19 09:00 Oxycontin PO Q8HR MALISSA Sodium Chloride 10 ml 12/10/19 22:00 12/10/19 23:06 Sodium Chloride Flush Syringe 10 Ml IV 10 ml BID MALISSA Administration Sodium Chloride 10 ml 12/10/19 19:43 Sodium Chloride Flush Syringe 10 Ml IV PRN PRN LINE FLUSH
[2019-12-11] MEDS: FOLIC ACID 1 MG TAB PO SCH (09:34)
[2019-12-11] MEDS: oxyCODONE ER 20 MG TAB PO SCH ×4 (09:35→21:17)
[2019-12-11] MEDS: HYDROXYUREA 500 MG CAP PO SCH ×3 (12:36→21:11)
[2019-12-11] MEDS: HYDROmorphone 2 MG/1 ML INJ IV PRN ×2 (17:07→21:22)
[2019-12-11] MEDS: ENOXAPARIN 40 MG/0.4 ML INJ SUB-Q SCH (21:11)
[2019-12-12] MEDS: D5W/0.9% NACL 1,000 ML IV SCH ×2 (00:36→10:29)
[2019-12-12] MEDS: HYDROmorphone 2 MG/1 ML INJ IV PRN ×8 (00:36→23:47)
[2019-12-12 05:07] LABS: Basophils # (Auto) 0.1 K/mm3 (0.0-0.1); Basophils % (Auto) 0.6 % (0.0-1.8); Eosinophils # (Auto) 0.2 K/mm3 (0.0-0.4); Eosinophils % (Auto) 2.1 % (0.0-4.3); Hematocrit 21.2 % (35.5-45.6); Hemoglobin 7.3 gm/dl (11.8-15.2); Lymphocytes # (Auto) 1.7 K/mm3 (1.2-5.4); Lymphocytes % (Auto) 15.4 % (13.4-35.0); Mean Corpuscular HGB Conc 35 % (32-34); Mean Corpuscular Volume 90 fl (84-94); Monocytes # (Auto) 1.2 K/mm3 (0.0-0.8); Platelet Count 395 K/mm3 (140-440); Red Blood Count 2.36 M/mm3 (3.65-5.03)
[2019-12-12 05:08] LABS: Red Cell Distribution Width 23.5 % (13.2-15.2)
[2019-12-12] MEDS: oxyCODONE ER 20 MG TAB PO SCH ×3 (06:14→21:34)
[2019-12-12] MEDS: oxyCODONE 5 MG TAB PO PRN (06:25)
--- NOTE | 2019-12-12 10:18 | Progress Note ---
Assessment and Plan Assessment and plan: Sickle cell vaso-occlusive crisis Admitted to Tele Added long acting Oxycontin continue prn narcotics Continue iv fluid Hypokalemia Now resolved Hyponatremia iv fluids Elevated LFT Will monitor. 12/12/2019 Patient with sickle cell vso-occlusive crisis. Slight improvement in pain. Continue current management. Hopefully dc home in 1-2 days History Interval history: generalized body pain, slight improvement Hospitalist Physical - Physical exam Narrative exam: GEN: Not in acute distress, obese, lying in bed HEENT: Normocephalic, atraumatic, Neck: supple, No JVD Lungs: Clear to auscultation bilaterally, heart;S1 and S2 reg, no murmurs, rubs or gallop Abd:soft, non tender, non distended, normal bowel sounds, Ext: No edema, no clubbing, no cyanosis, Neuro: Awake,alert,oriented X3 , no focal signs, - Constitutional Vitals: Temp Pulse Resp BP Pulse Ox 99.1 F 86 22 114/60 92 12/12/19 08:21 12/12/19 08:21 12/12/19 08:21 12/12/19 08:21 12/12/19 08:21 Results - Labs CBC & Chem 7: 12/12/19 04:41 12/11/19 02:13 Labs: Laboratory Last Values WBC 10.9 K/mm3 (4.5-11.0) 12/12/19 04:41 RBC 2.36 M/mm3 (3.65-5.03) L 12/12/19 04:41 Hgb 7.3 gm/dl (11.8-15.2) L 12/12/19 04:41 Hct 21.2 % (35.5-45.6) L 12/12/19 04:41 MCV 90 fl (84-94) 12/12/19 04:41 MCH 31 pg (28-32) 12/12/19 04:41 MCHC 35 % (32-34) H 12/12/19 04:41 RDW 23.5 % (13.2-15.2) H 12/12/19 04:41 Plt Count 395 K/mm3 (140-440) 12/12/19 04:41 Lymph % (Auto) 15.4 % (13.4-35.0) 12/12/19 04:41 [place] % (Auto) 11.0 % (0.0-7.3) H 12/12/19 04:41 Eos % (Auto) 2.1 % (0.0-4.3) 12/12/19 04:41 Baso % (Auto) 0.6 % (0.0-1.8) 12/12/19 04:41 Lymph # 1.7 K/mm3 (1.2-5.4) 12/12/19 04:41 [place] # 1.2 K/mm3 (0.0-0.8) H 12/12/19 04:41 Eos # 0.2 K/mm3 (0.0-0.4) 12/12/19 04:41 Baso # 0.1 K/mm3 (0.0-0.1) 12/12/19 04:41 Seg Neutrophils % 70.9 % (40.0-70.0) H 12/12/19 04:41 Seg Neutrophils # 7.7 K/mm3 (1.8-7.7) 12/12/19 04:41 Percent Retic 2.11 % (0.78-2.58) 12/12/19 04:41 Sodium 134 mmol/L (137-145) L 12/11/19 02:13 Potassium 3.6 mmol/L (3.6-5.0) 12/11/19 02:13 Chloride 101.1 mmol/L (98-107) 12/11/19 02:13 Carbon Dioxide 22 mmol/L (22-30) 12/11/19 02:13 Anion Gap 15 mmol/L 12/11/19 02:13 BUN 7 mg/dL (9-20) L 12/11/19 02:13 Creatinine 0.9 mg/dL (0.8-1.5) 12/11/19 02:13 Estimated GFR > 60 ml/min 12/11/19 02:13 BUN/Creatinine Ratio 8 % 12/11/19 02:13 Glucose 110 mg/dL (75-100) H 12/11/19 02:13 Hemoglobin A1c 4.9 % (4-6) 12/11/19 02:13 Calcium 8.2 mg/dL (8.4-10.2) L 12/11/19 02:13 Total Bilirubin 1.90 mg/dL (0.1-1.2) H 12/11/19 02:13 AST 80 units/L (5-40) H 12/11/19 02:13 ALT 72 units/L (7-56) H 12/11/19 02:13 Alkaline Phosphatase 103 units/L (35-129) 12/11/19 02:13 Lactate Dehydrogenase 362 units/L (91-180) H 12/12/19 04:41 Total Protein 6.0 g/dL (6.3-8.2) L 12/11/19 02:13 Albumin 3.6 g/dL (3.9-5) L 12/11/19 02:13 Albumin/Globulin Ratio 1.5 % 12/11/19 02:13 Hepatitis A IgM Ab Non-reactive (NonReactive) 12/11/19 01:41 Hep Bs Antigen Non-reactive (Negative) 12/11/19 01:41 Hep B Core IgM Ab Non-reactive (NonReactive) 12/11/19 01:41 Hepatitis C Antibody Non-reactive (NonReactive) 12/11/19 01:41 Microbiology: Microbiology 12/10/19 13:59 Peripheral/Venous Blood Culture - Preliminary NO GROWTH AFTER 24 HOURS 12/10/19 13:59 Peripheral/Venous Blood Culture - Preliminary NO GROWTH AFTER 24 HOURS Castrejon/IV: Voiding Method Toilet IV Catheter Type [Left Upper Peripheral IV arm] IV Catheter Type [Left INT / Saline Lock Antecubital] IV Catheter Type [Right INT / Saline Lock Forearm] Active Medications - Current Medications Current Medications: Generic Name Dose Route Start Last Admin Trade Name Freq PRN Reason Stop Dose Admin Acetaminophen 650 mg 12/10/19 19:43 Tylenol PO Q4H PRN Pain MILD(1-3)/Fever >100.5/URIAS Enoxaparin Sodium 40 mg 12/11/19 22:00 12/11/19 21:11 Enoxaparin SUB-Q 40 mg QDAY@2200 MALISSA Administration Folic Acid 1 mg 12/10/19 20:00 12/11/19 09:34 Folvite PO 1 mg DAILY MALISSA Administration Hydromorphone HCl 2 mg 12/11/19 14:00 12/12/19 07:38 Dilaudid IV 2 mg Q3H PRN Administration Pain , Severe (7-10) Hydroxyurea 500 mg 12/10/19 22:00 12/11/19 21:11 Hydroxyurea PO 500 mg BID MALISSA Administration Dextrose/Sodium Chloride 1,000 mls @ 125 mls/hr 12/10/19 20:00 12/12/19 00:36 D5ns IV 125 mls/hr DIRECT MALISSA Administration Magnesium Hydroxide 30 ml 12/11/19 08:59 Milk Of Magnesia PO Q4H PRN Constipation Metoclopramide HCl 10 mg 12/10/19 19:46 Reglan IV Q6H PRN Nausea And Vomiting Ondansetron HCl 4 mg 12/10/19 19:46 Zofran IV Q8H PRN Nausea And Vomiting Oxycodone HCl 10 mg 12/10/19 20:00 12/12/19 06:25 Roxicodone PO 10 mg Q6H PRN Administration Pain, Moderate (4-6) Oxycodone HCl 20 mg 12/11/19 09:00 12/12/19 06:14 Oxycontin PO 20 mg Q8HR MALISSA Administration Sodium Chloride 10 ml 12/10/19 22:00 12/11/19 21:10 Sodium Chloride Flush Syringe 10 Ml IV 10 ml BID MALISSA Administration Sodium Chloride 10 ml 12/10/19 19:43 Sodium Chloride Flush Syringe 10 Ml IV PRN PRN LINE FLUSH Nutrition/Malnutrition Assess - Dietary Evaluation Nutrition/Malnutrition Findings: Nutrition Notes Start: 12/11/19 14:29 Freq: Status: Active Protocol: Document 12/11/19 14:29 LM (Rec: 12/11/19 14:41 LM [email or web address]) Nutrition Notes Need for Assessment generated from: MD Order Initial or Follow up Assessment Other Pertinent Diagnosis sickle cell crisis, anxiety, depression Current Diet Regular Labs/Tests Na 134 BUN 7 Bili 1.9 Pertinent Medications D5ns ar 125ml/hr Folic acid Height 5 ft 10 in Weight 68.039 kg Usual Body Weight 81 kg [place] Body Weight (kg) 75.45 BMI 21.5 Weight change and time frame 16% wt loss (time frame unknown/based on UBW) 4% wt loss in 2 days (per pt) Weight Status Appropriate Subjective/Other Information MD consult for ONS. Pt stated he was eating well at home but not well since being in hospital. Pt stated his appetite is poor and received chopped meats on his tray. Regular diet with regular meats is ordered for dinner. Pt wants Ensure and double portions. Pt stated that he has lost about 6 lb in the last couple of days. Burn Absent Trauma Absent GI Symptoms None Minimum of two criteria No Interpretation of Weight Loss (severe) >2% in 1 week #1 Nutrition Diagnosis Inadequate oral intake Etiology sickle cell crisis As Evidenced by Signs and Symptoms pt statement of not eating well since admission Is patient on ventilator? No Is Patient Ambulatory and/or Out of Bed Yes REE-([facility]-ambulatory/OOB) [ 2049.632 NUTR.MSJOOB] Calculation Used for Recommendations [facility] Additional Notes Protein: 54-68g (0.8-1g/kg) Fluid: 1ml/kcal Nutrition Intervention Change Diet Order: Continue regular diet Add Supplement/Snack (indicate name/kcal Ensure Enlive TID /protein ) Provides kCal: 1,050 Provides Protein (gm) 60 Goal #1 Meet at least 80% of energy and protein needs Anticipated Discharge Needs: Regular diet Follow-Up By: 12/15/19 Additional Comments F/U for PO/ONS intakes
[2019-12-12] MEDS: FOLIC ACID 1 MG TAB PO SCH (10:29)
[2019-12-12] MEDS: HYDROXYUREA 500 MG CAP PO SCH ×2 (10:30→21:34)
[2019-12-12] MEDS: ENOXAPARIN 40 MG/0.4 ML INJ SUB-Q SCH (21:33)
[2019-12-13] MEDS: HYDROmorphone 2 MG/1 ML INJ IV PRN ×5 (04:07→21:13)
[2019-12-13] MEDS: oxyCODONE ER 20 MG TAB PO SCH ×4 (05:08→21:19)
[2019-12-13 09:45] LABS: Basophils # (Auto) 0.1 K/mm3 (0.0-0.1); Basophils % (Auto) 0.7 % (0.0-1.8); Eosinophils # (Auto) 0.5 K/mm3 (0.0-0.4); Hematocrit 21.9 % (35.5-45.6); Hemoglobin 7.7 gm/dl (11.8-15.2); Lymphocytes # (Auto) 2.2 K/mm3 (1.2-5.4); Lymphocytes % (Auto) 19.3 % (13.4-35.0); Mean Corpuscular HGB Conc 35 % (32-34); Mean Corpuscular Volume 89 fl (84-94); Monocytes # (Auto) 1.1 K/mm3 (0.0-0.8); Platelet Count 438 K/mm3 (140-440); Red Blood Count 2.46 M/mm3 (3.65-5.03)
[2019-12-13 09:47] LABS: Red Cell Distribution Width 23.6 % (13.2-15.2)
[2019-12-13] MEDS: oxyCODONE 5 MG TAB PO PRN ×2 (10:46→19:08)
[2019-12-13] MEDS: FOLIC ACID 1 MG TAB PO SCH (10:46)
[2019-12-13] MEDS: HYDROXYUREA 500 MG CAP PO SCH ×2 (10:47→21:14)
--- NOTE | 2019-12-13 11:23 | Progress Note ---
Assessment and Plan Assessment and plan: Sickle cell vaso-occlusive crisis Admitted to Tele Added long acting Oxycontin continue prn narcotics Continue iv fluid Hypokalemia Now resolved Hyponatremia iv fluids Elevated LFT Will monitor. 12/12/2019 Patient with sickle cell vaso-occlusive crisis. Slight improvement in pain. Continue current management. Hopefully dc home in 1-2 days 12/13/19 Patient with sickle cell with vaso-occlusive crisis. He is still in pain. has problems with iv acess for iv Narcotics. iv nurse to re-evaluate. History Interval history: generalized body pain, slight improvement Hospitalist Physical - Physical exam Narrative exam: GEN: Not in acute distress, lying in bed HEENT: Normocephalic, atraumatic, Neck: supple, No JVD Lungs: Clear to auscultation bilaterally, heart;S1 and S2 reg, no murmurs, rubs or gallop Abd:soft, non tender, non distended, normal bowel sounds, Ext: No edema, no clubbing, no cyanosis, Neuro: Awake,alert,oriented X3 , no focal signs, - Constitutional Vitals: Temp Pulse Resp BP Pulse Ox 98.5 F 63 22 104/55 96 12/13/19 07:54 12/13/19 07:54 12/13/19 07:54 12/13/19 08:30 12/13/19 07:54 Results - Labs CBC & Chem 7: 12/13/19 09:16 12/11/19 02:13 Labs: Laboratory Last Values WBC 11.5 K/mm3 (4.5-11.0) H 12/13/19 09:16 RBC 2.46 M/mm3 (3.65-5.03) L 12/13/19 09:16 Hgb 7.7 gm/dl (11.8-15.2) L 12/13/19 09:16 Hct 21.9 % (35.5-45.6) L 12/13/19 09:16 MCV 89 fl (84-94) 12/13/19 09:16 MCH 31 pg (28-32) 12/13/19 09:16 MCHC 35 % (32-34) H 12/13/19 09:16 RDW 23.6 % (13.2-15.2) H 12/13/19 09:16 Plt Count 438 K/mm3 (140-440) 12/13/19 09:16 Lymph % (Auto) 19.3 % (13.4-35.0) 12/13/19 09:16 [place] % (Auto) 10.0 % (0.0-7.3) H 12/13/19 09:16 Eos % (Auto) 4.0 % (0.0-4.3) 12/13/19 09:16 Baso % (Auto) 0.7 % (0.0-1.8) 12/13/19 09:16 Lymph # 2.2 K/mm3 (1.2-5.4) 12/13/19 09:16 [place] # 1.1 K/mm3 (0.0-0.8) H 12/13/19 09:16 Eos # 0.5 K/mm3 (0.0-0.4) H 12/13/19 09:16 Baso # 0.1 K/mm3 (0.0-0.1) 12/13/19 09:16 Seg Neutrophils % 66.0 % (40.0-70.0) 12/13/19 09:16 Seg Neutrophils # 7.6 K/mm3 (1.8-7.7) 12/13/19 09:16 Percent Retic 1.64 % (0.78-2.58) 12/13/19 09:16 Sodium 134 mmol/L (137-145) L 12/11/19 02:13 Potassium 3.6 mmol/L (3.6-5.0) 12/11/19 02:13 Chloride 101.1 mmol/L (98-107) 12/11/19 02:13 Carbon Dioxide 22 mmol/L (22-30) 12/11/19 02:13 Anion Gap 15 mmol/L 12/11/19 02:13 BUN 7 mg/dL (9-20) L 12/11/19 02:13 Creatinine 0.9 mg/dL (0.8-1.5) 12/11/19 02:13 Estimated GFR > 60 ml/min 12/11/19 02:13 BUN/Creatinine Ratio 8 % 12/11/19 02:13 Glucose 110 mg/dL (75-100) H 12/11/19 02:13 Hemoglobin A1c 4.9 % (4-6) 12/11/19 02:13 Calcium 8.2 mg/dL (8.4-10.2) L 12/11/19 02:13 Total Bilirubin 1.90 mg/dL (0.1-1.2) H 12/11/19 02:13 AST 80 units/L (5-40) H 12/11/19 02:13 ALT 72 units/L (7-56) H 12/11/19 02:13 Alkaline Phosphatase 103 units/L (35-129) 12/11/19 02:13 Lactate Dehydrogenase 366 units/L (91-180) H 12/13/19 09:16 Total Protein 6.0 g/dL (6.3-8.2) L 12/11/19 02:13 Albumin 3.6 g/dL (3.9-5) L 12/11/19 02:13 Albumin/Globulin Ratio 1.5 % 12/11/19 02:13 Hepatitis A IgM Ab Non-reactive (NonReactive) 12/11/19 01:41 Hep Bs Antigen Non-reactive (Negative) 12/11/19 01:41 Hep B Core IgM Ab Non-reactive (NonReactive) 12/11/19 01:41 Hepatitis C Antibody Non-reactive (NonReactive) 12/11/19 01:41 Microbiology: Microbiology 12/10/19 13:59 Peripheral/Venous Blood Culture - Preliminary NO GROWTH AFTER 48 HOURS 12/10/19 13:59 Peripheral/Venous Blood Culture - Preliminary NO GROWTH AFTER 48 HOURS Castrejon/IV: Voiding Method Urinal IV Catheter Type [Left Upper Double Lumen Cath arm] IV Catheter Type [Left INT / Saline Lock Antecubital] IV Catheter Type [Right Peripheral IV Forearm] Active Medications - Current Medications Current Medications: Generic Name Dose Route Start Last Admin Trade Name Freq PRN Reason Stop Dose Admin Acetaminophen 650 mg 12/10/19 19:43 Tylenol PO Q4H PRN Pain MILD(1-3)/Fever >100.5/URIAS Enoxaparin Sodium 40 mg 12/11/19 22:00 12/12/19 21:33 Enoxaparin SUB-Q 40 mg QDAY@2200 MALISSA Administration Folic Acid 1 mg 12/10/19 20:00 12/13/19 10:46 Folvite PO 1 mg DAILY MALISSA Administration Hydromorphone HCl 2 mg 12/11/19 14:00 12/13/19 08:44 Dilaudid IV 2 mg Q3H PRN Administration Pain , Severe (7-10) Hydroxyurea 500 mg 12/10/19 22:00 12/13/19 10:47 Hydroxyurea PO 500 mg BID MALISSA Administration Dextrose/Sodium Chloride 1,000 mls @ 125 mls/hr 12/10/19 20:00 12/12/19 10:29 D5ns IV 125 mls/hr DIRECT MALISSA Administration Magnesium Hydroxide 30 ml 12/11/19 08:59 Milk Of Magnesia PO Q4H PRN Constipation Metoclopramide HCl 10 mg 12/10/19 19:46 Reglan IV Q6H PRN Nausea And Vomiting Ondansetron HCl 4 mg 12/10/19 19:46 Zofran IV Q8H PRN Nausea And Vomiting Oxycodone HCl 10 mg 12/10/19 20:00 12/13/19 10:46 Roxicodone PO 10 mg Q6H PRN Administration Pain, Moderate (4-6) Oxycodone HCl 20 mg 12/11/19 09:00 12/13/19 05:08 Oxycontin PO Not Given Q8HR MALISSA Sodium Chloride 10 ml 12/10/19 22:00 12/13/19 10:47 Sodium Chloride Flush Syringe 10 Ml IV 10 ml BID MALISSA Administration Sodium Chloride 10 ml 12/10/19 19:43 Sodium Chloride Flush Syringe 10 Ml IV PRN PRN LINE FLUSH Nutrition/Malnutrition Assess - Dietary Evaluation Nutrition/Malnutrition Findings: Nutrition Notes Start: 12/11/19 14:29 Freq: Status: Active Protocol: Document 12/11/19 14:29 LM (Rec: 12/11/19 14:41 LM [email or web address]) Nutrition Notes Need for Assessment generated from: MD Order Initial or Follow up Assessment Other Pertinent Diagnosis sickle cell crisis, anxiety, depression Current Diet Regular Labs/Tests Na 134 BUN 7 Bili 1.9 Pertinent Medications D5ns ar 125ml/hr Folic acid Height 5 ft 10 in Weight 68.039 kg Usual Body Weight 81 kg [place] Body Weight (kg) 75.45 BMI 21.5 Weight change and time frame 16% wt loss (time frame unknown/based on UBW) 4% wt loss in 2 days (per pt) Weight Status Appropriate Subjective/Other Information MD consult for ONS. Pt stated he was eating well at home but not well since being in hospital. Pt stated his appetite is poor and received chopped meats on his tray. Regular diet with regular meats is ordered for dinner. Pt wants Ensure and double portions. Pt stated that he has lost about 6 lb in the last couple of days. Burn Absent Trauma Absent GI Symptoms None Minimum of two criteria No Interpretation of Weight Loss (severe) >2% in 1 week #1 Nutrition Diagnosis Inadequate oral intake Etiology sickle cell crisis As Evidenced by Signs and Symptoms pt statement of not eating well since admission Is patient on ventilator? No Is Patient Ambulatory and/or Out of Bed Yes REE-([facility]-ambulatory/OOB) [ 2049.632 NUTR.MSJOOB] Calculation Used for Recommendations [facility] Additional Notes Protein: 54-68g (0.8-1g/kg) Fluid: 1ml/kcal Nutrition Intervention Change Diet Order: Continue regular diet Add Supplement/Snack (indicate name/kcal Ensure Enlive TID /protein ) Provides kCal: 1,050 Provides Protein (gm) 60 Goal #1 Meet at least 80% of energy and protein needs Anticipated Discharge Needs: Regular diet Follow-Up By: 12/15/19 Additional Comments F/U for PO/ONS intakes
[2019-12-13] MEDS: ENOXAPARIN 40 MG/0.4 ML INJ SUB-Q SCH (21:14)
[2019-12-14] MEDS: oxyCODONE 5 MG TAB PO PRN ×4 (00:23→21:39)
[2019-12-14] MEDS: D5W/0.9% NACL 1,000 ML IV SCH ×3 (00:25→16:56)
[2019-12-14] MEDS: HYDROmorphone 2 MG/1 ML INJ IV PRN ×6 (01:28→20:13)
[2019-12-14] MEDS: oxyCODONE ER 20 MG TAB PO SCH ×3 (06:20→21:43)
--- NOTE | 2019-12-14 08:48 | Progress Note ---
Assessment and Plan Assessment and plan: Sickle cell vaso-occlusive crisis Admitted to Tele Added long acting Oxycontin continue prn narcotics Continue iv fluid Hypokalemia Now resolved Hyponatremia iv fluids Elevated LFT Will monitor. 12/12/2019 Patient with sickle cell vaso-occlusive crisis. Slight improvement in pain. Continue current management. Hopefully dc home in 1-2 days 12/13/19 Patient with sickle cell with vaso-occlusive crisis. He is still in pain. has problems with iv access for iv Narcotics. iv nurse to re-evaluate. 12/14/19 Patient with sickle cell with vaso-occlusive crisis. says he is still in pain, asking for more Dilaudid. He is on Dilaudid 2mg iv q 3hr. Not stable for discharge yet. Continue iv fluid History Interval history: Generalized body pain, Still in pain, asking for higher dose of Dilaudid Hospitalist Physical - Physical exam Narrative exam: GEN: Not in acute distress, lying in bed HEENT: Normocephalic, atraumatic, Neck: supple, No JVD Lungs: Clear to auscultation bilaterally, heart;S1 and S2 reg, no murmurs, rubs or gallop Abd:soft, non tender, non distended, normal bowel sounds, Ext: No edema, no clubbing, no cyanosis, Neuro: Awake,alert,oriented X3 , no focal signs, - Constitutional Vitals: Temp Pulse Resp BP Pulse Ox 98.7 F 78 18 103/54 98 12/14/19 05:17 12/14/19 05:17 12/14/19 06:54 12/14/19 05:17 12/14/19 05:17 Results - Labs CBC & Chem 7: 12/13/19 09:16 12/11/19 02:13 Labs: Laboratory Last Values WBC 11.5 K/mm3 (4.5-11.0) H 12/13/19 09:16 RBC 2.46 M/mm3 (3.65-5.03) L 12/13/19 09:16 Hgb 7.7 gm/dl (11.8-15.2) L 12/13/19 09:16 Hct 21.9 % (35.5-45.6) L 12/13/19 09:16 MCV 89 fl (84-94) 12/13/19 09:16 MCH 31 pg (28-32) 12/13/19 09:16 MCHC 35 % (32-34) H 12/13/19 09:16 RDW 23.6 % (13.2-15.2) H 12/13/19 09:16 Plt Count 438 K/mm3 (140-440) 12/13/19 09:16 Lymph % (Auto) 19.3 % (13.4-35.0) 12/13/19 09:16 [place] % (Auto) 10.0 % (0.0-7.3) H 12/13/19 09:16 Eos % (Auto) 4.0 % (0.0-4.3) 12/13/19 09:16 Baso % (Auto) 0.7 % (0.0-1.8) 12/13/19 09:16 Lymph # 2.2 K/mm3 (1.2-5.4) 12/13/19 09:16 [place] # 1.1 K/mm3 (0.0-0.8) H 12/13/19 09:16 Eos # 0.5 K/mm3 (0.0-0.4) H 12/13/19 09:16 Baso # 0.1 K/mm3 (0.0-0.1) 12/13/19 09:16 Seg Neutrophils % 66.0 % (40.0-70.0) 12/13/19 09:16 Seg Neutrophils # 7.6 K/mm3 (1.8-7.7) 12/13/19 09:16 Percent Retic 1.64 % (0.78-2.58) 12/13/19 09:16 Sodium 134 mmol/L (137-145) L 12/11/19 02:13 Potassium 3.6 mmol/L (3.6-5.0) 12/11/19 02:13 Chloride 101.1 mmol/L (98-107) 12/11/19 02:13 Carbon Dioxide 22 mmol/L (22-30) 12/11/19 02:13 Anion Gap 15 mmol/L 12/11/19 02:13 BUN 7 mg/dL (9-20) L 12/11/19 02:13 Creatinine 0.9 mg/dL (0.8-1.5) 12/11/19 02:13 Estimated GFR > 60 ml/min 12/11/19 02:13 BUN/Creatinine Ratio 8 % 12/11/19 02:13 Glucose 110 mg/dL (75-100) H 12/11/19 02:13 Hemoglobin A1c 4.9 % (4-6) 12/11/19 02:13 Calcium 8.2 mg/dL (8.4-10.2) L 12/11/19 02:13 Total Bilirubin 1.90 mg/dL (0.1-1.2) H 12/11/19 02:13 AST 80 units/L (5-40) H 12/11/19 02:13 ALT 72 units/L (7-56) H 12/11/19 02:13 Alkaline Phosphatase 103 units/L (35-129) 12/11/19 02:13 Lactate Dehydrogenase 366 units/L (91-180) H 12/13/19 09:16 Total Protein 6.0 g/dL (6.3-8.2) L 12/11/19 02:13 Albumin 3.6 g/dL (3.9-5) L 12/11/19 02:13 Albumin/Globulin Ratio 1.5 % 12/11/19 02:13 Hepatitis A IgM Ab Non-reactive (NonReactive) 12/11/19 01:41 Hep Bs Antigen Non-reactive (Negative) 12/11/19 01:41 Hep B Core IgM Ab Non-reactive (NonReactive) 12/11/19 01:41 Hepatitis C Antibody Non-reactive (NonReactive) 12/11/19 01:41 Microbiology: Microbiology 12/10/19 13:59 Peripheral/Venous Blood Culture - Preliminary NO GROWTH AFTER 72 HOURS 12/10/19 13:59 Peripheral/Venous Blood Culture - Preliminary NO GROWTH AFTER 72 HOURS Castrejon/IV: Voiding Method Urinal IV Catheter Type [Right Upper Mid-line arm] IV Catheter Type [Right INT / Saline Lock Antecubital] IV Catheter Type [Left Upper Double Lumen Cath arm] IV Catheter Type [Left INT / Saline Lock Antecubital] IV Catheter Type [Right Peripheral IV Forearm] Active Medications - Current Medications Current Medications: Generic Name Dose Route Start Last Admin Trade Name Freq PRN Reason Stop Dose Admin Acetaminophen 650 mg 12/10/19 19:43 Tylenol PO Q4H PRN Pain MILD(1-3)/Fever >100.5/URIAS Enoxaparin Sodium 40 mg 12/11/19 22:00 12/13/19 21:14 Enoxaparin SUB-Q 40 mg QDAY@2200 MALISSA Administration Folic Acid 1 mg 12/10/19 20:00 12/13/19 10:46 Folvite PO 1 mg DAILY MALISSA Administration Hydromorphone HCl 2 mg 12/11/19 14:00 12/14/19 05:21 Dilaudid IV 2 mg Q3H PRN Administration Pain , Severe (7-10) Hydroxyurea 500 mg 12/10/19 22:00 12/13/19 21:14 Hydroxyurea PO 500 mg BID MALISSA Administration Dextrose/Sodium Chloride 1,000 mls @ 125 mls/hr 12/10/19 20:00 12/14/19 00:25 D5ns IV 125 mls/hr DIRECT MALISSA Administration Magnesium Hydroxide 30 ml 12/11/19 08:59 Milk Of Magnesia PO Q4H PRN Constipation Metoclopramide HCl 10 mg 12/10/19 19:46 Reglan IV Q6H PRN Nausea And Vomiting Ondansetron HCl 4 mg 12/10/19 19:46 12/13/19 17:47 Zofran IV 4 mg Q8H PRN Administration Nausea And Vomiting Oxycodone HCl 10 mg 12/10/19 20:00 12/14/19 06:54 Roxicodone PO 10 mg Q6H PRN Administration Pain, Moderate (4-6) Oxycodone HCl 20 mg 12/11/19 09:00 12/14/19 06:20 Oxycontin PO Not Given Q8HR MALISSA Sodium Chloride 10 ml 12/10/19 22:00 12/13/19 21:12 Sodium Chloride Flush Syringe 10 Ml IV 10 ml BID MALISSA Administration Sodium Chloride 10 ml 12/10/19 19:43 12/14/19 05:22 Sodium Chloride Flush Syringe 10 Ml IV 10 ml PRN PRN Administration LINE FLUSH Nutrition/Malnutrition Assess - Dietary Evaluation Nutrition/Malnutrition Findings: Nutrition Notes Start: 12/11/19 14:29 Freq: Status: Active Protocol: Document 12/11/19 14:29 LM (Rec: 12/11/19 14:41 LM [email or web address]) Nutrition Notes Need for Assessment generated from: MD Order Initial or Follow up Assessment Other Pertinent Diagnosis sickle cell crisis, anxiety, depression Current Diet Regular Labs/Tests Na 134 BUN 7 Bili 1.9 Pertinent Medications D5ns ar 125ml/hr Folic acid Height 5 ft 10 in Weight 68.039 kg Usual Body Weight 81 kg [place] Body Weight (kg) 75.45 BMI 21.5 Weight change and time frame 16% wt loss (time frame unknown/based on UBW) 4% wt loss in 2 days (per pt) Weight Status Appropriate Subjective/Other Information MD consult for ONS. Pt stated he was eating well at home but not well since being in hospital. Pt stated his appetite is poor and received chopped meats on his tray. Regular diet with regular meats is ordered for dinner. Pt wants Ensure and double portions. Pt stated that he has lost about 6 lb in the last couple of days. Burn Absent Trauma Absent GI Symptoms None Minimum of two criteria No Interpretation of Weight Loss (severe) >2% in 1 week #1 Nutrition Diagnosis Inadequate oral intake Etiology sickle cell crisis As Evidenced by Signs and Symptoms pt statement of not eating well since admission Is patient on ventilator? No Is Patient Ambulatory and/or Out of Bed Yes REE-([place]-ambulatory/OOB) [ 2049.632 NUTR.MSJOOB] Calculation Used for Recommendations [facility] Additional Notes Protein: 54-68g (0.8-1g/kg) Fluid: 1ml/kcal Nutrition Intervention Change Diet Order: Continue regular diet Add Supplement/Snack (indicate name/kcal Ensure Enlive TID /protein ) Provides kCal: 1,050 Provides Protein (gm) 60 Goal #1 Meet at least 80% of energy and protein needs Anticipated Discharge Needs: Regular diet Follow-Up By: 12/15/19 Additional Comments F/U for PO/ONS intakes
[2019-12-14] MEDS: FOLIC ACID 1 MG TAB PO SCH (09:13)
[2019-12-14] MEDS: HYDROXYUREA 500 MG CAP PO SCH ×2 (09:13→21:40)
[2019-12-14 18:17] LABS: Basophils # (Auto) 0.1 K/mm3 (0.0-0.1); Basophils % (Auto) 0.7 % (0.0-1.8); Eosinophils # (Auto) 0.4 K/mm3 (0.0-0.4); Eosinophils % (Auto) 3.7 % (0.0-4.3); Hematocrit 24.5 % (35.5-45.6); Hemoglobin 8.2 gm/dl (11.8-15.2); Lymphocytes # (Auto) 2.4 K/mm3 (1.2-5.4); Lymphocytes % (Auto) 20.4 % (13.4-35.0); Mean Corpuscular HGB Conc 33 % (32-34); Mean Corpuscular Volume 94 fl (84-94); Monocytes # (Auto) 0.9 K/mm3 (0.0-0.8); Monocytes % (Auto) 8.2 % (0.0-7.3); Platelet Count 463 K/mm3 (140-440); Red Blood Count 2.61 M/mm3 (3.65-5.03)
[2019-12-14] MEDS: ENOXAPARIN 40 MG/0.4 ML INJ SUB-Q SCH (21:41)
[2019-12-15] MEDS: HYDROmorphone 2 MG/1 ML INJ IV PRN ×3 (00:10→09:41)
[2019-12-15] MEDS: D5W/0.9% NACL 1,000 ML IV SCH ×2 (00:33→06:29)
[2019-12-15] MEDS: oxyCODONE 5 MG TAB PO PRN ×4 (04:06→23:51)
[2019-12-15] MEDS: oxyCODONE ER 20 MG TAB PO SCH (06:12)
[2019-12-15] MEDS: FOLIC ACID 1 MG TAB PO SCH (09:41)
[2019-12-15] MEDS: HYDROXYUREA 500 MG CAP PO SCH ×2 (09:41→21:47)
--- NOTE | 2019-12-15 13:13 | Progress Note ---
Assessment and Plan Assessment and plan: Sickle cell vaso-occlusive crisis Admitted to Tele Added long acting Oxycontin continue prn narcotics Continue iv fluid Hypokalemia Now resolved Hyponatremia iv fluids Elevated LFT Will monitor. 12/12/2019 Patient with sickle cell vaso-occlusive crisis. Slight improvement in pain. Continue current management. Hopefully dc home in 1-2 days 12/13/19 Patient with sickle cell with vaso-occlusive crisis. He is still in pain. has problems with iv access for iv Narcotics. iv nurse to re-evaluate. 12/14/19 Patient with sickle cell with vaso-occlusive crisis. says he is still in pain, asking for more Dilaudid. He is on Dilaudid 2mg iv q 3hr. Not stable for discharge yet. Continue iv fluid 12/15/2019. Patient with sickle cell with vaso-occlusive crisis. We will attempt to wean off of IV Dilaudid. Continue p.o. pain medications. History Interval history: No new issues overnight. Hospitalist Physical - Constitutional Vitals: Temp Pulse Resp BP Pulse Ox 99.6 F 86 18 127/64 100 12/15/19 11:37 12/15/19 11:37 12/15/19 11:37 12/15/19 11:37 12/15/19 11:37 General appearance: Present: no acute distress, well-nourished - EENT Eyes: Present: PERRL, EOM intact ENT: hearing intact, clear oral mucosa, dentition normal - Neck Neck: Present: supple, normal ROM - Respiratory Respiratory effort: normal Respiratory: bilateral: CTA - Cardiovascular Rhythm: regular Heart Sounds: Present: S1 & S2. Absent: gallop, rub - Extremities Extremities: no ischemia, No edema, Full ROM - Abdominal General gastrointestinal: soft, non-tender, non-distended, normal bowel sounds - Integumentary Integumentary: Present: clear, warm, dry - Neurologic Neurologic: CNII-XII intact, moves all extremities Results - Labs CBC & Chem 7: 12/14/19 16:44 12/11/19 02:13 Labs: Laboratory Last Values WBC 11.6 K/mm3 (4.5-11.0) H 12/14/19 16:44 RBC 2.61 M/mm3 (3.65-5.03) L 12/14/19 16:44 Hgb 8.2 gm/dl (11.8-15.2) L 12/14/19 16:44 Hct 24.5 % (35.5-45.6) L 12/14/19 16:44 MCV 94 fl (84-94) 12/14/19 16:44 MCH 31 pg (28-32) 12/14/19 16:44 MCHC 33 % (32-34) 12/14/19 16:44 RDW 24.0 % (13.2-15.2) H 12/14/19 16:44 Plt Count 463 K/mm3 (140-440) H 12/14/19 16:44 Lymph % (Auto) 20.4 % (13.4-35.0) 12/14/19 16:44 [place] % (Auto) 8.2 % (0.0-7.3) H 12/14/19 16:44 Eos % (Auto) 3.7 % (0.0-4.3) 12/14/19 16:44 Baso % (Auto) 0.7 % (0.0-1.8) 12/14/19 16:44 Lymph # 2.4 K/mm3 (1.2-5.4) 12/14/19 16:44 [place] # 0.9 K/mm3 (0.0-0.8) H 12/14/19 16:44 Eos # 0.4 K/mm3 (0.0-0.4) 12/14/19 16:44 Baso # 0.1 K/mm3 (0.0-0.1) 12/14/19 16:44 Seg Neutrophils % 67.0 % (40.0-70.0) 12/14/19 16:44 Seg Neutrophils # 7.7 K/mm3 (1.8-7.7) 12/14/19 16:44 Percent Retic 1.84 % (0.78-2.58) 12/14/19 16:44 Sodium 134 mmol/L (137-145) L 12/11/19 02:13 Potassium 3.6 mmol/L (3.6-5.0) 12/11/19 02:13 Chloride 101.1 mmol/L (98-107) 12/11/19 02:13 Carbon Dioxide 22 mmol/L (22-30) 12/11/19 02:13 Anion Gap 15 mmol/L 12/11/19 02:13 BUN 7 mg/dL (9-20) L 12/11/19 02:13 Creatinine 0.9 mg/dL (0.8-1.5) 12/11/19 02:13 Estimated GFR > 60 ml/min 12/11/19 02:13 BUN/Creatinine Ratio 8 % 12/11/19 02:13 Glucose 110 mg/dL (75-100) H 12/11/19 02:13 Hemoglobin A1c 4.9 % (4-6) 12/11/19 02:13 Calcium 8.2 mg/dL (8.4-10.2) L 12/11/19 02:13 Total Bilirubin 1.90 mg/dL (0.1-1.2) H 12/11/19 02:13 AST 80 units/L (5-40) H 12/11/19 02:13 ALT 72 units/L (7-56) H 12/11/19 02:13 Alkaline Phosphatase 103 units/L (35-129) 12/11/19 02:13 Lactate Dehydrogenase 402 units/L (91-180) H 12/14/19 16:44 Total Protein 6.0 g/dL (6.3-8.2) L 12/11/19 02:13 Albumin 3.6 g/dL (3.9-5) L 12/11/19 02:13 Albumin/Globulin Ratio 1.5 % 12/11/19 02:13 Hepatitis A IgM Ab Non-reactive (NonReactive) 12/11/19 01:41 Hep Bs Antigen Non-reactive (Negative) 12/11/19 01:41 Hep B Core IgM Ab Non-reactive (NonReactive) 12/11/19 01:41 Hepatitis C Antibody Non-reactive (NonReactive) 12/11/19 01:41 Microbiology: Microbiology 12/10/19 13:59 Peripheral/Venous Blood Culture - Preliminary NO GROWTH AFTER 4 DAYS 12/10/19 13:59 Peripheral/Venous Blood Culture - Preliminary NO GROWTH AFTER 4 DAYS Castrejon/IV: Voiding Method Urinal IV Catheter Type [Right Upper Mid-line arm] IV Catheter Type [Right INT / Saline Lock Antecubital] IV Catheter Type [Left Upper Double Lumen Cath arm] IV Catheter Type [Left INT / Saline Lock Antecubital] IV Catheter Type [Right Peripheral IV Forearm] Active Medications - Current Medications Current Medications: Generic Name Dose Route Start Last Admin Trade Name Freq PRN Reason Stop Dose Admin Acetaminophen 650 mg 12/10/19 19:43 Tylenol PO Q4H PRN Pain MILD(1-3)/Fever >100.5/URIAS Diphenhydramine HCl 25 mg 12/14/19 11:06 Benadryl IV Q6H PRN Itching Enoxaparin Sodium 40 mg 12/11/19 22:00 12/14/19 21:41 Enoxaparin SUB-Q 40 mg QDAY@2200 MALISSA Administration Folic Acid 1 mg 12/10/19 20:00 12/15/19 09:41 Folvite PO 1 mg DAILY MALISSA Administration Hydroxyurea 500 mg 12/10/19 22:00 12/15/19 09:41 Hydroxyurea PO 500 mg BID MALISSA Administration Dextrose/Sodium Chloride 1,000 mls @ 125 mls/hr 12/10/19 20:00 12/15/19 06:29 D5ns IV 125 mls/hr DIRECT MALISSA Administration Magnesium Hydroxide 30 ml 12/11/19 08:59 Milk Of Magnesia PO Q4H PRN Constipation Metoclopramide HCl 10 mg 12/10/19 19:46 Reglan IV Q6H PRN Nausea And Vomiting Ondansetron HCl 4 mg 12/10/19 19:46 12/13/19 17:47 Zofran IV 4 mg Q8H PRN Administration Nausea And Vomiting Oxycodone HCl 10 mg 12/10/19 20:00 12/15/19 04:06 Roxicodone PO 10 mg Q6H PRN Administration Pain, Moderate (4-6) Sodium Chloride 10 ml 12/10/19 22:00 12/15/19 09:41 Sodium Chloride Flush Syringe 10 Ml IV 10 ml BID MALISSA Administration Sodium Chloride 10 ml 12/10/19 19:43 12/15/19 00:10 Sodium Chloride Flush Syringe 10 Ml IV 10 ml PRN PRN Administration LINE FLUSH Nutrition/Malnutrition Assess - Dietary Evaluation Nutrition/Malnutrition Findings: Nutrition Notes Start: 12/11/19 14:29 Freq: Status: Active Protocol: Document 12/11/19 14:29 LM (Rec: 12/11/19 14:41 LM [email or web address]) Nutrition Notes Need for Assessment generated from: MD Order Initial or Follow up Assessment Other Pertinent Diagnosis sickle cell crisis, anxiety, depression Current Diet Regular Labs/Tests Na 134 BUN 7 Bili 1.9 Pertinent Medications D5ns ar 125ml/hr Folic acid Height 5 ft 10 in Weight 68.039 kg Usual Body Weight 81 kg [place] Body Weight (kg) 75.45 BMI 21.5 Weight change and time frame 16% wt loss (time frame unknown/based on UBW) 4% wt loss in 2 days (per pt) Weight Status Appropriate Subjective/Other Information MD consult for ONS. Pt stated he was eating well at home but not well since being in hospital. Pt stated his appetite is poor and received chopped meats on his tray. Regular diet with regular meats is ordered for dinner. Pt wants Ensure and double portions. Pt stated that he has lost about 6 lb in the last couple of days. Burn Absent Trauma Absent GI Symptoms None Minimum of two criteria No Interpretation of Weight Loss (severe) >2% in 1 week #1 Nutrition Diagnosis Inadequate oral intake Etiology sickle cell crisis As Evidenced by Signs and Symptoms pt statement of not eating well since admission Is patient on ventilator? No Is Patient Ambulatory and/or Out of Bed Yes REE-([facility]-ambulatory/OOB) [ 2049.632 NUTR.MSJOOB] Calculation Used for Recommendations [facility] Additional Notes Protein: 54-68g (0.8-1g/kg) Fluid: 1ml/kcal Nutrition Intervention Change Diet Order: Continue regular diet Add Supplement/Snack (indicate name/kcal Ensure Enlive TID /protein ) Provides kCal: 1,050 Provides Protein (gm) 60 Goal #1 Meet at least 80% of energy and protein needs Anticipated Discharge Needs: Regular diet Follow-Up By: 12/15/19 Additional Comments F/U for PO/ONS intakes
[2019-12-15 16:57] LABS: Hematocrit 25.4 % (35.5-45.6); Hemoglobin 8.4 gm/dl (11.8-15.2); Mean Corpuscular HGB Conc 33 % (32-34); Mean Corpuscular Volume 91 fl (84-94); Platelet Count 507 K/mm3 (140-440); Red Blood Count 2.79 M/mm3 (3.65-5.03)
[2019-12-15 16:58] LABS: Red Cell Distribution Width 23.5 % (13.2-15.2)
[2019-12-15 17:16] LABS: BUN/Creatinine Ratio 9; Blood Urea Nitrogen 8 mg/dL (9-20); Calcium 8.9 mg/dL (8.4-10.2); Hemolysis Index 174
--- NOTE | 2019-12-15 18:07 | XRay Report ---
CHEST 1 VIEW INDICATION: Fever. COMPARISON: 12/10/2019. FINDINGS: Support devices: None. Heart: Within normal limits. Lungs/Pleura: No acute air space or interstitial disease. Additional findings: None. IMPRESSION: No acute abnormality. Signer Name: Sergio Darby MD Signed: 12/15/2019 6:02 PM Workstation Name: [id number]
[2019-12-15 19:44] LABS: Bilirubin,Urine NEG (Negative); Blood,Urine NEG (Negative); Color,Urine Yellow (Yellow); Protein,Urine <15 mg/dL mg/dL (Negative)
[2019-12-15] MEDS ORDERED: SODIUM CHLORIDE 0.9% 1000 ML 1,000 ML IV ONE ×2 (20:35→20:38)
[2019-12-15] MEDS ORDERED: VANCOMYCIN/NS 1 GM/250 ML 1 GM/250 ML BAG IV ONE (21:00)
[2019-12-15] MEDS ORDERED: VANCOMYCIN 1,250 MG in SODIUM CHLORIDE 0.9% 250ML 250 ML IV ONE (21:30)
[2019-12-15] MEDS: ENOXAPARIN 40 MG/0.4 ML INJ SUB-Q SCH (21:47)
[2019-12-16] MEDS: oxyCODONE 5 MG TAB PO PRN ×3 (05:59→19:02)
[2019-12-16] MEDS: VANCOMYCIN/NS 1 GM/250 ML 1 GM/250 ML BAG IV SCH ×2 (10:11→17:33)
[2019-12-16] MEDS: D5W/0.9% NACL 1,000 ML IV SCH ×2 (10:11→20:58)
[2019-12-16] MEDS: HYDROXYUREA 500 MG CAP PO SCH ×2 (10:11→22:20)
[2019-12-16] MEDS: FOLIC ACID 1 MG TAB PO SCH (10:12)
--- NOTE | 2019-12-16 12:08 | Progress Note ---
Assessment and Plan Assessment and plan: Sickle cell vaso-occlusive crisis Admitted to Tele Added long acting Oxycontin continue prn narcotics Continue iv fluid Hypokalemia Now resolved Hyponatremia iv fluids Elevated LFT Will monitor. 12/12/2019 Patient with sickle cell vaso-occlusive crisis. Slight improvement in pain. Continue current management. Hopefully dc home in 1-2 days 12/13/19 Patient with sickle cell with vaso-occlusive crisis. He is still in pain. has problems with iv access for iv Narcotics. iv nurse to re-evaluate. 12/14/19 Patient with sickle cell with vaso-occlusive crisis. says he is still in pain, asking for more Dilaudid. He is on Dilaudid 2mg iv q 3hr. Not stable for discharge yet. Continue iv fluid 12/15/2019. Patient with sickle cell with vaso-occlusive crisis. We will attempt to wean off of IV Dilaudid. Continue p.o. pain medications. 12/16/2019. Patient with SIRS. Significant leukocytosis and fever since yesterday. Consult ID for further evaluation. Chest x-ray and urinalysis negative. Initial blood cultures were negative. Repeat blood cultures pending. Continue empiric antibiotics. History Interval history: Patient with spiking temps overnight Hospitalist Physical - Constitutional Vitals: Temp Pulse Resp BP Pulse Ox 101.0 F H 94 H 20 99/53 93 12/16/19 11:37 12/16/19 11:37 12/16/19 11:37 12/16/19 11:37 12/16/19 11:37 General appearance: Present: no acute distress, well-nourished - EENT Eyes: Present: PERRL, EOM intact ENT: hearing intact, clear oral mucosa, dentition normal - Neck Neck: Present: supple, normal ROM - Respiratory Respiratory effort: normal Respiratory: bilateral: CTA - Cardiovascular Rhythm: regular Heart Sounds: Present: S1 & S2. Absent: gallop, rub - Extremities Extremities: no ischemia, No edema, Full ROM - Abdominal General gastrointestinal: soft, non-tender, non-distended, normal bowel sounds - Integumentary Integumentary: Present: clear, warm, dry - Neurologic Neurologic: CNII-XII intact, moves all extremities Results - Labs CBC & Chem 7: 12/15/19 16:30 12/15/19 16:30 Labs: Laboratory Last Values WBC 20.2 K/mm3 (4.5-11.0) H 12/15/19 16:30 RBC 2.79 M/mm3 (3.65-5.03) L 12/15/19 16:30 Hgb 8.4 gm/dl (11.8-15.2) L 12/15/19 16:30 Hct 25.4 % (35.5-45.6) L 12/15/19 16:30 MCV 91 fl (84-94) 12/15/19 16:30 MCH 30 pg (28-32) 12/15/19 16:30 MCHC 33 % (32-34) 12/15/19 16:30 RDW 23.5 % (13.2-15.2) H 12/15/19 16:30 Plt Count 507 K/mm3 (140-440) H 12/15/19 16:30 Lymph % (Auto) 20.4 % (13.4-35.0) 12/14/19 16:44 Will % (Auto) 8.2 % (0.0-7.3) H 12/14/19 16:44 Eos % (Auto) 3.7 % (0.0-4.3) 12/14/19 16:44 Baso % (Auto) 0.7 % (0.0-1.8) 12/14/19 16:44 Lymph # 2.4 K/mm3 (1.2-5.4) 12/14/19 16:44 Will # 0.9 K/mm3 (0.0-0.8) H 12/14/19 16:44 Eos # 0.4 K/mm3 (0.0-0.4) 12/14/19 16:44 Baso # 0.1 K/mm3 (0.0-0.1) 12/14/19 16:44 Seg Neutrophils % 67.0 % (40.0-70.0) 12/14/19 16:44 Seg Neutrophils # 7.7 K/mm3 (1.8-7.7) 12/14/19 16:44 Percent Retic 3.26 % (0.78-2.58) H 12/15/19 16:30 Sodium 134 mmol/L (137-145) L 12/15/19 16:30 Potassium 5.1 mmol/L (3.6-5.0) H D 12/15/19 16:30 Chloride 99.9 mmol/L (98-107) 12/15/19 16:30 Carbon Dioxide 25 mmol/L (22-30) 12/15/19 16:30 Anion Gap 14 mmol/L 12/15/19 16:30 BUN 8 mg/dL (9-20) L 12/15/19 16:30 Creatinine 0.9 mg/dL (0.8-1.5) 12/15/19 16:30 Estimated GFR > 60 ml/min 12/15/19 16:30 BUN/Creatinine Ratio 9 % 12/15/19 16:30 Glucose 119 mg/dL (75-100) H 12/15/19 16:30 Hemoglobin A1c 4.9 % (4-6) 12/11/19 02:13 Calcium 8.9 mg/dL (8.4-10.2) 12/15/19 16:30 Total Bilirubin 1.90 mg/dL (0.1-1.2) H 12/11/19 02:13 AST 80 units/L (5-40) H 12/11/19 02:13 ALT 72 units/L (7-56) H 12/11/19 02:13 Alkaline Phosphatase 103 units/L (35-129) 12/11/19 02:13 Lactate Dehydrogenase 402 units/L (91-180) H 12/14/19 16:44 Total Protein 6.0 g/dL (6.3-8.2) L 12/11/19 02:13 Albumin 3.6 g/dL (3.9-5) L 12/11/19 02:13 Albumin/Globulin Ratio 1.5 % 12/11/19 02:13 Urine Color Yellow (Yellow) 12/15/19 19:29 Urine Turbidity Clear (Clear) 12/15/19 19:29 Urine pH 7.0 (5.0-7.0) 12/15/19 19: Ur Specific [place] 1.008 (1.003-1.030) 12/15/19 19:29 Urine Protein <15 mg/dl mg/dL (Negative) 12/15/19 19:29 Urine Glucose (UA) Neg mg/dL (Negative) 12/15/19 19: Urine Ketones Neg mg/dL (Negative) 12/15/19 19:29 Urine Blood Neg (Negative) 12/15/19 19:29 Urine Nitrite Neg (Negative) 12/15/19 19:29 Urine Bilirubin Neg (Negative) 12/15/19 19:29 Urine Urobilinogen 2.0 mg/dL (<2.0) 12/15/19 19:29 Ur Leukocyte Esterase Neg (Negative) 12/15/19 19:29 Urine WBC (Auto) 1.0 /HPF (0.0-6.0) 12/15/19 19:29 Urine RBC (Auto) 1.0 /HPF (0.0-6.0) 12/15/19 19:29 Hepatitis A IgM Ab Non-reactive (NonReactive) 12/11/19 01:41 Hep Bs Antigen Non-reactive (Negative) 12/11/19 01:41 Hep B Core IgM Ab Non-reactive (NonReactive) 12/11/19 01:41 Hepatitis C Antibody Non-reactive (NonReactive) 12/11/19 01:41 Microbiology: Microbiology 12/15/19 19:28 Peripheral/Venous Blood Culture - Preliminary Culture in Progress 12/15/19 19:28 Peripheral/Venous Blood Culture - Preliminary Culture in Progress 12/10/19 13:59 Peripheral/Venous Blood Culture - Final NO GROWTH AFTER 5 DAYS 12/10/19 13:59 Peripheral/Venous Blood Culture - Final NO GROWTH AFTER 5 DAYS [place]rejon/IV: Voiding Method Urinal IV Catheter Type [Right Upper Mid-line arm] IV Catheter Type [Right INT / Saline Lock Antecubital] IV Catheter Type [Left Upper Double Lumen Cath arm] IV Catheter Type [Left INT / Saline Lock Antecubital] IV Catheter Type [Right Peripheral IV Forearm] Active Medications - Current Medications Current Medications: Generic Name Dose Route Start Last Admin Trade Name Freq PRN Reason Stop Dose Admin Acetaminophen 650 mg 12/10/19 19:43 Tylenol PO Q4H PRN Pain MILD(1-3)/Fever >100.5/URIAS Diphenhydramine HCl 25 mg 12/14/19 11:06 Benadryl IV Q6H PRN Itching Enoxaparin Sodium 40 mg 12/11/19 22:00 12/15/19 21:47 Enoxaparin SUB-Q 40 mg QDAY@2200 MALISSA Administration Folic Acid 1 mg 12/10/19 20:00 12/16/19 10:12 Folvite PO 1 mg DAILY MALISSA Administration Hydroxyurea 500 mg 12/10/19 22:00 12/16/19 10:11 Hydroxyurea PO 500 mg BID MALISSA Administration Dextrose/Sodium Chloride 1,000 mls @ 125 mls/hr 12/10/19 20:00 12/16/19 10:11 D5ns IV 125 mls/hr DIRECT MALISSA Administration Vancomycin HCl 1 gm in 250 mls @ 166.667 mls/hr 12/16/19 10:00 12/16/19 10:11 Vancomycin/Ns 1 Gm/250 Ml IV 166.667 mls/hr Q8H MALISSA Administration Levofloxacin/Dextrose 750 mg in 150 mls @ 100 mls/hr 12/16/19 22:00 Levaquin 750mg/150ml IV Q24H MALISSA Protocol Magnesium Hydroxide 30 ml 12/11/19 08:59 Milk Of Magnesia PO Q4H PRN Constipation Metoclopramide HCl 10 mg 12/10/19 19:46 Reglan IV Q6H PRN Nausea And Vomiting Ondansetron HCl 4 mg 12/10/19 19:46 12/13/19 17:47 Zofran IV 4 mg Q8H PRN Administration Nausea And Vomiting Oxycodone HCl 10 mg 12/10/19 20:00 12/16/19 11:58 Roxicodone PO 10 mg Q6H PRN Administration Pain, Moderate (4-6) Sodium Chloride 10 ml 12/10/19 22:00 12/16/19 10:12 Sodium Chloride Flush Syringe 10 Ml IV 10 ml BID MALISSA Administration Sodium Chloride 10 ml 12/10/19 19:43 12/15/19 00:10 Sodium Chloride Flush Syringe 10 Ml IV 10 ml PRN PRN Administration LINE FLUSH Nutrition/Malnutrition Assess - Dietary Evaluation Nutrition/Malnutrition Findings: Nutrition Notes Start: 12/11/19 14:29 Freq: Status: Active Protocol: Document 12/15/19 13:47 LM (Rec: 12/15/19 13:51 LM [email or web address]) Nutrition Notes Initial or Follow up Reassessment Other Pertinent Diagnosis sickle cell crisis, anxiety, depression Current Diet Regular Labs/Tests Reviewed Pertinent Medications Reviewed Height 5 ft 10 in Weight 68.039 kg [place] Body Weight (kg) 75.45 BMI 21.5 Weight Status Appropriate Subjective/Other Information Pt stated he is not eating well due to feeling poor. Pt stated he is drinking Ensure. Percent of energy/protein needs met: 51%/100% Burn Absent Trauma Absent GI Symptoms None Current % PO Poor (25-49%) Minimum of two criteria No Interpretation of Weight Loss (severe) >2% in 1 week #1 Nutrition Diagnosis Inadequate oral intake Diagnosis Progress(for reassessment Continues documentation) Is patient on ventilator? No Is Patient Ambulatory and/or Out of Bed Yes REE-([facility]-ambulatory/OOB) [ 2049.632 [id number]] [facility] Additional Notes Protein: 54-68g (0.8-1g/kg) Fluid: 1ml/kcal Nutrition Intervention Change Diet Order: Continue regular diet Add Supplement/Snack (indicate name/kcal Ensure Enlive TID /protein ) Provides kCal: 1,050 Provides Protein (gm) 60 Goal #1 Meet at least 80% of energy and protein needs Anticipated Discharge Needs: Regular diet with ONS Follow-Up By: 12/17/19 Additional Comments F/U for PO/ONS intakes
[2019-12-16] MEDS: HYDROmorphone 1 MG/1 ML INJ IV PRN ×2 (15:55→22:21)
[2019-12-16] MEDS: diphenhydrAMINE 50 MG/ML VIAL IV PRN ×2 (15:58→22:26)
--- NOTE | 2019-12-16 16:04 | Consultation ---
History of Present Illness - Reason for Consult Consult date: 12/16/19 fever and SCD Requesting physician: MATTHEW SMALLWOOD - History of Present Illness 44 y/o male with history of SCD, previous suicidal attempt and cocaine/marihuana use, admitted on 12/11/2019 complaining of 24 hour-history of diffuse body pain. Denies fever, cough, chest pain, N/V/D. Pain is mainly in his joints, shoulders, legs and back. Pain is 10 of 10 in severity. Recently moved from [place] 3 months ago after the of his father. He lives with his son. Of note, patient recently was admitted 11/18-11/20/2019 for SCD crisis. On arrival, temp 100.4, HR 89, BP 108/51, R20, O2 99%. WBC 7.1, Hg 8.1, Plat 434. AST 80, ALT 72, Bili 2.5, LDH 362, UA negative, CRP 0.7, blood culture 12/10/2019 and 12/15/2019 no growth. CXR x 2 negative. Review of Systems: positive in bold print General: + body aches +malaise Cutaneous: rash, pruritus Head: headaches or injury Eyes: changes in vision, eye pain, double vision Ears: ear pain, ear discharge, ringing or hearing loss Nose: nose bleeding, stuffiness Mouth & throat: bleeding gums, horseness, no dental problems, or swollen glands Neck: no pain, node enlargement/lumps, tyroid enlargement or tenderness Respiratory: SOB, cough, LAROSE, wheezing, sputum, hemoptysis, pleuritic chest pain Cardiovascular: chest pain, leg edema, cyanosis, LAROSE, orthopnea Musculoskeletal: +joint pain Gastrointestinal: nausea, vomiting, hematemesis, diarrhea, constipation, melena, bright red blood in stools, fecal incontinence, jaundice Genitourinary/Reproductive: frequent urination, dysuria, hematuria, incontinence Neurogical: seizures, headaches, weakness, paresthesias, loss of speech or vision; memory loss, vertigo, tremors, numbness Psychiatric: stable mood; excessive anxiety, sadness or moodiness Medications and Allergies Allergies Allergy/AdvReac Type Severity Reaction Status Date / Time acetaminophen [From Tylenol] Allergy Hives Verified 06/13/18 14:00 fentanyl Allergy Unknown Verified 09/10/18 00:59 ketorolac [From Toradol] Allergy Unknown Verified 09/10/18 00:59 morphine Allergy Unknown Verified 09/10/18 00:59 tramadol Allergy Unknown Verified 09/10/18 00:59 Home Medications Medication Instructions Recorded Confirmed Last Taken Type Oxycodone HCl [roxiCODONE] 30 mg PO Q6H #12 tablet 05/30/18 12/12/19 Unknown Rx Hydroxyurea [Hydrea] 500 mg PO BID #30 capsule 09/10/18 12/10/19 Unknown Rx Folic Acid [Folvite] 1 mg PO DAILY #15 tablet 11/20/19 12/10/19 Unknown Rx Oxycodone HCl [oxyCODONE] 10 mg PO Q6H PRN #15 tablet 11/20/19 12/10/19 Unknown Rx Active Meds: Active Medications Acetaminophen (Tylenol) 650 mg PO Q4H PRN PRN Reason: Pain MILD(1-3)/Fever >100.5/URIAS Diphenhydramine HCl (Benadryl) 25 mg IV Q6H PRN PRN Reason: Itching Enoxaparin Sodium (Enoxaparin) 40 mg SUB-Q QDAY@2200 [facility] Last Admin: 12/15/19 21:47 Dose: 40 mg Documented by: Folic Acid (Folvite) 1 mg PO DAILY [facility] Last Admin: 12/16/19 10:12 Dose: 1 mg Documented by: Hydromorphone HCl (Dilaudid) 1 mg IV Q6HR PRN PRN Reason: Pain , Severe (7-10) Hydroxyurea (Hydroxyurea) 500 mg PO BID [facility] Last Admin: 12/16/19 10:11 Dose: 500 mg Documented by: Dextrose/Sodium Chloride (D5ns) 1,000 mls @ 125 mls/hr IV DIRECT [facility] Last Admin: 12/16/19 10:11 Dose: 125 mls/hr Documented by: Vancomycin HCl (Vancomycin/Ns 1 Gm/250 Ml) 1 gm in 250 mls @ 166.667 mls/hr IV Q8H [facility] Last Admin: 12/16/19 10:11 Dose: 166.667 mls/hr Documented by: Levofloxacin/Dextrose (Levaquin 750mg/150ml) 750 mg in 150 mls @ 100 mls/hr IV Q24H [facility]; Protocol Magnesium Hydroxide (Milk Of Magnesia) 30 ml PO Q4H PRN PRN Reason: Constipation Metoclopramide HCl (Reglan) 10 mg IV Q6H PRN PRN Reason: Nausea And Vomiting Ondansetron HCl (Zofran) 4 mg IV Q8H PRN PRN Reason: Nausea And Vomiting Last Admin: 12/13/19 17:47 Dose: 4 mg Documented by: Oxycodone HCl (Roxicodone) 10 mg PO Q6H PRN PRN Reason: Pain, Moderate (4-6) Last Admin: 12/16/19 11:58 Dose: 10 mg Documented by: Sodium Chloride (Sodium Chloride Flush Syringe 10 Ml) 10 ml IV BID MALISSA Last Admin: 12/16/19 10:12 Dose: 10 ml Documented by: Sodium Chloride (Sodium Chloride Flush Syringe 10 Ml) 10 ml IV PRN PRN PRN Reason: LINE FLUSH Last Admin: 12/15/19 00:10 Dose: 10 ml Documented by: Physical Examination - Physical Exam Narrative exam: General appearance: Alert in NAD anxious Eyes: icteric sclerae, moist conjunctivae; no lid-lag; PERRLA HENT: Atraumatic; oropharynx clear Lungs: CTA, with normal respiratory effort and no intercostal retractions CV: tachycardic Abdomen: Soft, non-tender; no masses or hepatosplenomegaly Extremities: no edema, no cyanosis, no joint effusion Skin: No rash. Psych: no agitated Neuro: alert and oriented x 3. Moving all extermities - Constitutional Vitals: Vital Signs Temp Pulse Resp BP Pulse Ox 101.0 F H 94 H 20 99/53 93 12/16/19 11:37 12/16/19 11:37 12/16/19 11:37 12/16/19 11:37 12/16/19 11:37 Temperature -Last 24 Hours Temperature 101.0 F Temperature 99.5 F Temperature 98.0 F Temperature 101.5 F Temperature 102.3 F Temperature 102.9 F Results - Labs CBC & Chem 7: 12/15/19 16:30 12/15/19 16:30 Labs: Abnormal lab results 12/15/19 12/15/19 12/15/19 Range/Units 16:30 16:30 16:30 WBC 20.2 H (4.5-11.0) K/mm3 RBC 2.79 L (3.65-5.03) M/mm3 Hgb 8.4 L (11.8-15.2) gm/dl Hct 25.4 L (35.5-45.6) % RDW 23.5 H (13.2-15.2) % Plt Count 507 H (140-440) K/mm3 Percent Retic 3.26 H (0.78-2.58) % Sodium 134 L (137-145) mmol/L Potassium 5.1 H D (3.6-5.0) mmol/L BUN 8 L (9-20) mg/dL Glucose 119 H (75-100) mg/dL Assessment and Plan Cultures: Blood culture 12/10/2019 and 12/15/2019 no growth Assessment: 44 y/o male with history of SCD, previous suicidal attempt and cocaine/marihuana use, admitted on 12/11/2019 complaining of 24 hour-history of diffuse body pain, now with fever: #FUO associated with sickle cell disease crisis: unclear etiology, DDx: COVID infection, parvovirus, influenza, acute chest syndrome, PE, pneumonia. No headaches so doubt meningitis, blood culture x 2 negative so doubt bacteremia, no cough or hypoxemia so doubt acute chest syndrome or pneumonia. #Elevated LFTs from SCD crisis: r/o cholecystitis (denies abdominal pain) Recommendations: obtain COVID test, Influenza PCR/ag, procalcitonin, CRP, Ddimer, ferritin obtain CT chest, abdomen and pelvis obtain venous US continue vancomycin IV for now start cefepime 2g IV q 8 hour parvovirus serology check EBV/CMV antibody obtain UDS Will follow. Gail Irizarry MD Infectious Diseases Print Binding Worker [facility] ([facility] M [phone] O [phone]
[2019-12-16] MEDS: CEFEPIME/NS 2 GM/100 ML 2 GM/100 ML BAG IV SCH (22:20)
[2019-12-16] MEDS: ENOXAPARIN 40 MG/0.4 ML INJ SUB-Q SCH (22:21)
[2019-12-17] MEDS: VANCOMYCIN/NS 1 GM/250 ML 1 GM/250 ML BAG IV SCH ×3 (02:24→17:52)
[2019-12-17] MEDS: oxyCODONE 5 MG TAB PO PRN ×4 (02:27→20:42)
[2019-12-17] MEDS: diphenhydrAMINE 50 MG/ML VIAL IV PRN ×4 (04:13→22:44)
[2019-12-17] MEDS: HYDROmorphone 1 MG/1 ML INJ IV PRN ×4 (04:13→22:44)
[2019-12-17] MEDS: CEFEPIME/NS 2 GM/100 ML 2 GM/100 ML BAG IV SCH ×3 (05:51→22:42)
[2019-12-17] MEDS: D5W/0.9% NACL 1,000 ML IV SCH ×2 (09:42→17:53)
[2019-12-17] MEDS: HYDROXYUREA 500 MG CAP PO SCH ×2 (10:36→22:43)
[2019-12-17] MEDS: FOLIC ACID 1 MG TAB PO SCH (10:36)
--- NOTE | 2019-12-17 10:42 | Progress Note ---
Assessment and Plan Assessment and plan: Sickle cell vaso-occlusive crisis Admitted to Tele Added long acting Oxycontin continue prn narcotics Continue iv fluid Hypokalemia Now resolved Hyponatremia iv fluids Elevated LFT Will monitor. 12/12/2019 Patient with sickle cell vaso-occlusive crisis. Slight improvement in pain. Continue current management. Hopefully dc home in 1-2 days 12/13/19 Patient with sickle cell with vaso-occlusive crisis. He is still in pain. has problems with iv access for iv Narcotics. iv nurse to re-evaluate. 12/14/19 Patient with sickle cell with vaso-occlusive crisis. says he is still in pain, asking for more Dilaudid. He is on Dilaudid 2mg iv q 3hr. Not stable for discharge yet. Continue iv fluid 12/15/2019. Patient with sickle cell with vaso-occlusive crisis. We will attempt to wean off of IV Dilaudid. Continue p.o. pain medications. 12/16/2019. Patient with SIRS. Significant leukocytosis and fever since yesterday. Consult ID for further evaluation. Chest x-ray and urinalysis negative. Initial blood cultures were negative. Repeat blood cultures pending. Continue empiric antibiotics. 12/17/2019. Patient still with persistent fevers. ID consulted. Obtain COVID test, influenza PCR, procalcitonin, CRP, d-dimer and ferritin. Follow-up CT chest, abdomen and pelvis. Follow-up venous ultrasound. Continue antibiotics of vancomycin and cefepime. History Interval history: Patient with spiking temps overnight Hospitalist Physical - Constitutional Vitals: Temp Pulse Resp BP Pulse Ox 99.7 F H 79 20 102/56 99 12/17/19 08:05 12/17/19 08:05 12/17/19 08:05 12/17/19 08:05 12/17/19 08:05 General appearance: Present: no acute distress, well-nourished - EENT Eyes: Present: PERRL, EOM intact ENT: hearing intact, clear oral mucosa, dentition normal - Neck Neck: Present: supple, normal ROM - Respiratory Respiratory effort: normal Respiratory: bilateral: CTA - Cardiovascular Rhythm: regular Heart Sounds: Present: S1 & S2. Absent: gallop, rub - Extremities Extremities: no ischemia, No edema, Full ROM - Abdominal General gastrointestinal: soft, non-tender, non-distended, normal bowel sounds - Integumentary Integumentary: Present: clear, warm, dry - Neurologic Neurologic: CNII-XII intact, moves all extremities Results - Labs CBC & Chem 7: 12/15/19 16:30 12/15/19 16:30 Labs: Laboratory Last Values WBC 20.2 K/mm3 (4.5-11.0) H 12/15/19 16:30 RBC 2.79 M/mm3 (3.65-5.03) L 12/15/19 16:30 Hgb 8.4 gm/dl (11.8-15.2) L 12/15/19 16:30 Hct 25.4 % (35.5-45.6) L 12/15/19 16:30 MCV 91 fl (84-94) 12/15/19 16:30 MCH 30 pg (28-32) 12/15/19 16:30 MCHC 33 % (32-34) 12/15/19 16:30 RDW 23.5 % (13.2-15.2) H 12/15/19 16:30 Plt Count 507 K/mm3 (140-440) H 12/15/19 16:30 Lymph % (Auto) 20.4 % (13.4-35.0) 12/14/19 16:44 [place] % (Auto) 8.2 % (0.0-7.3) H 12/14/19 16:44 Eos % (Auto) 3.7 % (0.0-4.3) 12/14/19 16:44 Baso % (Auto) 0.7 % (0.0-1.8) 12/14/19 16:44 Lymph # 2.4 K/mm3 (1.2-5.4) 12/14/19 16:44 [place] # 0.9 K/mm3 (0.0-0.8) H 12/14/19 16:44 Eos # 0.4 K/mm3 (0.0-0.4) 12/14/19 16:44 Baso # 0.1 K/mm3 (0.0-0.1) 12/14/19 16:44 Seg Neutrophils % 67.0 % (40.0-70.0) 12/14/19 16:44 Seg Neutrophils # 7.7 K/mm3 (1.8-7.7) 12/14/19 16:44 Percent Retic 3.26 % (0.78-2.58) H 12/15/19 16:30 Sodium 134 mmol/L (137-145) L 12/15/19 16:30 Potassium 5.1 mmol/L (3.6-5.0) H D 12/15/19 16:30 Chloride 99.9 mmol/L (98-107) 12/15/19 16:30 Carbon Dioxide 25 mmol/L (22-30) 12/15/19 16:30 Anion Gap 14 mmol/L 12/15/19 16:30 BUN 8 mg/dL (9-20) L 12/15/19 16:30 Creatinine 0.9 mg/dL (0.8-1.5) 12/15/19 16:30 Estimated GFR > 60 ml/min 12/15/19 16:30 BUN/Creatinine Ratio 9 % 12/15/19 16:30 Glucose 119 mg/dL (75-100) H 12/15/19 16:30 Hemoglobin A1c 4.9 % (4-6) 12/11/19 02:13 Calcium 8.9 mg/dL (8.4-10.2) 12/15/19 16:30 Total Bilirubin 1.90 mg/dL (0.1-1.2) H 12/11/19 02:13 AST 80 units/L (5-40) H 12/11/19 02:13 ALT 72 units/L (7-56) H 12/11/19 02:13 Alkaline Phosphatase 103 units/L (35-129) 12/11/19 02:13 Lactate Dehydrogenase 402 units/L (91-180) H 12/14/19 16:44 Total Protein 6.0 g/dL (6.3-8.2) L 12/11/19 02:13 Albumin 3.6 g/dL (3.9-5) L 12/11/19 02:13 Albumin/Globulin Ratio 1.5 % 12/11/19 02:13 Urine Color Yellow (Yellow) 12/15/19 19:29 Urine Turbidity Clear (Clear) 12/15/19 19:29 Urine pH 7.0 (5.0-7.0) 12/15/19 19:29 Ur Specific [place] 1.008 (1.003-1.030) 12/15/19 19:29 Urine Protein <15 mg/dl mg/dL (Negative) 12/15/19 19:29 Urine Glucose (UA) Neg mg/dL (Negative) 12/15/19 19: Urine Ketones Neg mg/dL (Negative) 12/15/19 19:29 Urine Blood Neg (Negative) 12/15/19 19:29 Urine Nitrite Neg (Negative) 12/15/19 19:29 Urine Bilirubin Neg (Negative) 12/15/19 19: Urine Urobilinogen 2.0 mg/dL (<2.0) 12/15/19 19:29 Ur Leukocyte Esterase Neg (Negative) 12/15/19 19: Urine WBC (Auto) 1.0 /HPF (0.0-6.0) 12/15/19 19: Urine RBC (Auto) 1.0 /HPF (0.0-6.0) 12/15/19 19:29 Hepatitis A IgM Ab Non-reactive (NonReactive) 12/11/19 01:41 Hep Bs Antigen Non-reactive (Negative) 12/11/19 01:41 Hep B Core IgM Ab Non-reactive (NonReactive) 12/11/19 01:41 Hepatitis C Antibody Non-reactive (NonReactive) 12/11/19 01:41 Influenza A (Rapid) Negative (Negative) 12/16/19 05:00 Influenza A (RT-PCR) Negative (Negative) 12/16/19 05:00 Influenza B (Rapid) Negative (Negative) 12/16/19 05:00 Influenza B (RT-PCR) Negative (Negative) 12/16/19 05:00 Microbiology: Microbiology 12/15/19 19:28 Peripheral/Venous Blood Culture - Preliminary NO GROWTH AFTER 24 HOURS 12/15/19 19:28 Peripheral/Venous Blood Culture - Preliminary NO GROWTH AFTER 24 HOURS Castrejon/IV: Voiding Method Urinal IV Catheter Type [Right Upper Mid-line arm] IV Catheter Type [Right INT / Saline Lock Antecubital] IV Catheter Type [Left Upper Double Lumen Cath arm] IV Catheter Type [Left INT / Saline Lock Antecubital] IV Catheter Type [Right Peripheral IV Forearm] Active Medications - Current Medications Current Medications: Generic Name Dose Route Start Last Admin Trade Name Freq PRN Reason Stop Dose Admin Acetaminophen 650 mg 12/10/19 19:43 Tylenol PO Q4H PRN Pain MILD(1-3)/Fever >100.5/URIAS Diphenhydramine HCl 25 mg 12/14/19 11:06 12/17/19 10:36 Benadryl IV 25 mg Q6H PRN Administration Itching Enoxaparin Sodium 40 mg 12/11/19 22:00 12/16/19 22:21 Enoxaparin SUB-Q 40 mg QDAY@2200 MALISSA Administration Folic Acid 1 mg 12/10/19 20:00 12/17/19 10:36 Folvite PO 1 mg DAILY MALISSA Administration Hydromorphone HCl 1 mg 12/16/19 15:37 12/17/19 10:36 Dilaudid IV 1 mg Q6HR PRN Administration Pain , Severe (7-10) Hydroxyurea 500 mg 12/10/19 22:00 12/17/19 10:36 Hydroxyurea PO 500 mg BID MALISSA Administration Dextrose/Sodium Chloride 1,000 mls @ 125 mls/hr 12/10/19 20:00 12/17/19 09:42 D5ns IV 125 mls/hr DIRECT MALISSA Administration Vancomycin HCl 1 gm in 250 mls @ 166.667 mls/hr 12/16/19 10:00 12/17/19 09:42 Vancomycin/Ns 1 Gm/250 Ml IV 166.667 mls/hr Q8H MALISSA Administration Cefepime HCl 2 gm in 100 mls @ 200 mls/hr 12/16/19 22:00 12/17/19 05:51 Cefepime/Ns 2 Gm/100 Ml IV 200 mls/hr Q8HR MALISSA Administration Protocol Magnesium Hydroxide 30 ml 12/11/19 08:59 Milk Of Magnesia PO Q4H PRN Constipation Metoclopramide HCl 10 mg 12/10/19 19:46 Reglan IV Q6H PRN Nausea And Vomiting Ondansetron HCl 4 mg 12/10/19 19:46 12/13/19 17:47 Zofran IV 4 mg Q8H PRN Administration Nausea And Vomiting Oxycodone HCl 10 mg 12/10/19 20:00 12/17/19 08:30 Roxicodone PO 10 mg Q6H PRN Administration Pain, Moderate (4-6) Sodium Chloride 10 ml 12/10/19 22:00 12/17/19 09:46 Sodium Chloride Flush Syringe 10 Ml IV 10 ml BID MALISSA Administration Sodium Chloride 10 ml 12/10/19 19:43 12/15/19 00:10 Sodium Chloride Flush Syringe 10 Ml IV 10 ml PRN PRN Administration LINE FLUSH Nutrition/Malnutrition Assess - Dietary Evaluation Nutrition/Malnutrition Findings: Nutrition Notes Start: 12/11/19 14:29 Freq: Status: Active Protocol: Document 12/15/19 13:47 LM (Rec: 12/15/19 13:51 LM [email or web address]) Nutrition Notes Initial or Follow up Reassessment Other Pertinent Diagnosis sickle cell crisis, anxiety, depression Current Diet Regular Labs/Tests Reviewed Pertinent Medications Reviewed Height 5 ft 10 in Weight 68.039 kg [place] Body Weight (kg) 75.45 BMI 21.5 Weight Status Appropriate Subjective/Other Information Pt stated he is not eating well due to feeling poor. Pt stated he is drinking Ensure. Percent of energy/protein needs met: 51%/100% Burn Absent Trauma Absent GI Symptoms None Current % PO Poor (25-49%) Minimum of two criteria No Interpretation of Weight Loss (severe) >2% in 1 week #1 Nutrition Diagnosis Inadequate oral intake Diagnosis Progress(for reassessment Continues documentation) Is patient on ventilator? No Is Patient Ambulatory and/or Out of Bed Yes REE-([facility]-ambulatory/OOB) [ 2049.632 NUTR.MSJOOB] Calculation Used for Recommendations [facility] Additional Notes Protein: 54-68g (0.8-1g/kg) Fluid: 1ml/kcal Nutrition Intervention Change Diet Order: Continue regular diet Add Supplement/Snack (indicate name/kcal Ensure Enlive TID /protein ) Provides kCal: 1,050 Provides Protein (gm) 60 Goal #1 Meet at least 80% of energy and protein needs Anticipated Discharge Needs: Regular diet with ONS Follow-Up By: 12/17/19 Additional Comments F/U for PO/ONS intakes
--- NOTE | 2019-12-17 12:02 | Vascular Lab Report ---
DUPLEX DOPPLER LOWER EXTREMITY VEINS, BILATERAL INDICATION: eval for DVT. TECHNIQUE: Duplex doppler imaging was performed through the veins of both lower extremities using ve nous compression and other maneuvers. COMPARISON: No relevant prior imaging study available. FINDINGS: Right Common femoral vein: Negative. Right Superficial femoral vein: Negative. Right Popliteal vein: Negative. Right Calf veins: Negative. Left Common femoral vein: Negative. Left Superficial femoral vein: Negative. Left Popliteal vein: Negative. Left Calf veins: Negative. Additional findings: None.. IMPRESSION: No sonographic evidence for DVT in either lower extremity. Signer Name: Derek Rubin Jr, MD Signed: 12/17/2019 11:58 AM Workstation Name: [id number]
[2019-12-17 16:22] LABS: C-Reactive Protein 19.3 mg/dL (0.00-1.30)
--- NOTE | 2019-12-17 16:25 | Progress Note ---
Assessment and Plan Cultures: Blood culture 12/10/2019 and 12/15/2019 no growth Assessment: 44 y/o male with history of SCD, previous suicidal attempt and cocaine/marihuana use, admitted on 12/11/2019 complaining of 24 hour-history of diffuse body pain, now with fever: #FUO associated with sickle cell disease crisis: unclear etiology, UA neg. Blood cx neg. CXR x 2 neg. Influenza neg. Venous US no DVT. DDx: COVID infection, parvovirus, influenza, acute chest syndrome, PE, pneumonia. No headaches so doubt meningitis, blood culture x 2 negative so doubt bacteremia, no cough or hypoxemia so doubt acute chest syndrome or pneumonia. #Elevated LFTs from SCD crisis: r/o cholecystitis (denies abdominal pain) Recommendations: obtain COVID test - patient is refusing f/u procalcitonin, CRP, Ddimer, ferritin obtain CT chest, abdomen and pelvis - pending (Radiology awaiting for COVID test) continue vancomycin IV for now continue cefepime 2g IV q 8 hour f/u EBV/CMV antibody - pending Will follow. Gail Irizarry MD Infectious Diseases [employer] [facility] ([facility]) M [phone] O [phone] Subjective Date of service: 12/17/19 Principal diagnosis: FUO Interval history: Feels the same with body aches, fever seems to be trending down Objective - Exam Narrative Exam: General appearance: Alert in NAD anxious Eyes: icteric sclerae, moist conjunctivae; no lid-lag; PERRLA HENT: Atraumatic; oropharynx clear Lungs: CTA, with normal respiratory effort and no intercostal retractions CV: tachycardic Abdomen: Soft, non-tender; no masses or hepatosplenomegaly Extremities: no edema, no cyanosis, no joint effusion Skin: No rash. Psych: no agitated Neuro: alert and oriented x 3. Moving all extermities - Constitutional Vitals: Vital Signs Temp Pulse Resp BP Pulse Ox 99.2 F 78 20 103/52 98 12/17/19 11:40 12/17/19 11:40 12/17/19 11:40 12/17/19 11:43 12/17/19 11:40 Temperature -Last 24 Hours Temperature 99.2 F Temperature 99.7 F Temperature 100.6 F Temperature 103.0 F Temperature 102.5 F Temperature 102.7 F - Labs CBC & Chem 7: 12/15/19 16:30 12/15/19 16:30
[2019-12-17] MEDS: ENOXAPARIN 40 MG/0.4 ML INJ SUB-Q SCH ×2 (22:45→22:57)
[2019-12-18] MEDS: VANCOMYCIN/NS 1 GM/250 ML 1 GM/250 ML BAG IV SCH ×3 (03:07→17:16)
[2019-12-18] MEDS: oxyCODONE 5 MG TAB PO PRN ×4 (03:07→23:40)
[2019-12-18] MEDS: CEFEPIME/NS 2 GM/100 ML 2 GM/100 ML BAG IV SCH ×3 (06:01→21:14)
[2019-12-18] MEDS: D5W/0.9% NACL 1,000 ML IV SCH ×2 (07:50→17:35)
[2019-12-18] MEDS: diphenhydrAMINE 50 MG/ML VIAL IV PRN ×3 (07:50→20:32)
[2019-12-18] MEDS: HYDROmorphone 1 MG/1 ML INJ IV PRN ×3 (07:50→20:27)
[2019-12-18] MEDS: FOLIC ACID 1 MG TAB PO SCH (09:44)
[2019-12-18] MEDS: HYDROXYUREA 500 MG CAP PO SCH ×2 (09:45→21:14)
--- NOTE | 2019-12-18 10:49 | Progress Note ---
Assessment and Plan Assessment and plan: Sickle cell vaso-occlusive crisis Admitted to Tele Added long acting Oxycontin continue prn narcotics Continue iv fluid Hypokalemia Now resolved Hyponatremia iv fluids Elevated LFT Will monitor. 12/12/2019 Patient with sickle cell vaso-occlusive crisis. Slight improvement in pain. Continue current management. Hopefully dc home in 1-2 days 12/13/19 Patient with sickle cell with vaso-occlusive crisis. He is still in pain. has problems with iv access for iv Narcotics. iv nurse to re-evaluate. 12/14/19 Patient with sickle cell with vaso-occlusive crisis. says he is still in pain, asking for more Dilaudid. He is on Dilaudid 2mg iv q 3hr. Not stable for discharge yet. Continue iv fluid 12/15/2019. Patient with sickle cell with vaso-occlusive crisis. We will attempt to wean off of IV Dilaudid. Continue p.o. pain medications. 12/16/2019. Patient with SIRS. Significant leukocytosis and fever since yesterday. Consult ID for further evaluation. Chest x-ray and urinalysis negative. Initial blood cultures were negative. Repeat blood cultures pending. Continue empiric antibiotics. 12/17/2019. Patient still with persistent fevers. ID consulted. Obtain COVID test, influenza PCR, procalcitonin, CRP, d-dimer and ferritin. Follow-up CT chest, abdomen and pelvis. Follow-up venous ultrasound. Continue antibiotics of vancomycin and cefepime. 12/18/2019. Patient refused COVID testing. Continue to follow-up procalcitonin, CRP, d-dimer and ferritin levels. CT chest, abdomen and pelvis ordered but patient refused contrast. Continue vancomycin and cefepime. ID following. History Interval history: Patient with spiking temps overnight Hospitalist Physical - Constitutional Vitals: Temp Pulse Resp BP Pulse Ox 99.0 F 79 21 104/62 100 12/18/19 07:38 12/18/19 07:38 12/18/19 07:38 12/18/19 07:38 12/18/19 07:38 General appearance: Present: no acute distress, well-nourished - EENT Eyes: Present: PERRL, EOM intact ENT: hearing intact, clear oral mucosa, dentition normal - Neck Neck: Present: supple, normal ROM - Respiratory Respiratory effort: normal Respiratory: bilateral: CTA - Cardiovascular Rhythm: regular Heart Sounds: Present: S1 & S2. Absent: gallop, rub - Extremities Extremities: no ischemia, No edema, Full ROM - Abdominal General gastrointestinal: soft, non-tender, non-distended, normal bowel sounds - Integumentary Integumentary: Present: clear, warm, dry - Neurologic Neurologic: CNII-XII intact, moves all extremities Results - Labs CBC & Chem 7: 12/15/19 16:30 12/15/19 16:30 Labs: Laboratory Last Values WBC 20.2 K/mm3 (4.5-11.0) H 12/15/19 16:30 RBC 2.79 M/mm3 (3.65-5.03) L 12/15/19 16:30 Hgb 8.4 gm/dl (11.8-15.2) L 12/15/19 16:30 Hct 25.4 % (35.5-45.6) L 12/15/19 16:30 MCV 91 fl (84-94) 12/15/19 16:30 MCH 30 pg (28-32) 12/15/19 16:30 MCHC 33 % (32-34) 12/15/19 16:30 RDW 23.5 % (13.2-15.2) H 12/15/19 16:30 Plt Count 507 K/mm3 (140-440) H 12/15/19 16:30 Lymph % (Auto) 20.4 % (13.4-35.0) 12/14/19 16:44 [place] % (Auto) 8.2 % (0.0-7.3) H 12/14/19 16:44 Eos % (Auto) 3.7 % (0.0-4.3) 12/14/19 16:44 Baso % (Auto) 0.7 % (0.0-1.8) 12/14/19 16:44 Lymph # 2.4 K/mm3 (1.2-5.4) 12/14/19 16:44 [place] # 0.9 K/mm3 (0.0-0.8) H 12/14/19 16:44 Eos # 0.4 K/mm3 (0.0-0.4) 12/14/19 16:44 Baso # 0.1 K/mm3 (0.0-0.1) 12/14/19 16:44 Seg Neutrophils % 67.0 % (40.0-70.0) 12/14/19 16:44 Seg Neutrophils # 7.7 K/mm3 (1.8-7.7) 12/14/19 16:44 Percent Retic 3.26 % (0.78-2.58) H 12/15/19 16:30 D-Dimer 1698.60 ng/mlDDU (0-234) H 12/17/19 15:23 Sodium 134 mmol/L (137-145) L 12/15/19 16:30 Potassium 5.1 mmol/L (3.6-5.0) H D 12/15/19 16:30 Chloride 99.9 mmol/L (98-107) 12/15/19 16:30 Carbon Dioxide 25 mmol/L (22-30) 12/15/19 16:30 Anion Gap 14 mmol/L 12/15/19 16:30 BUN 8 mg/dL (9-20) L 12/15/19 16:30 Creatinine 0.9 mg/dL (0.8-1.5) 12/15/19 16:30 Estimated GFR > 60 ml/min 12/15/19 16:30 BUN/Creatinine Ratio 9 % 12/15/19 16:30 Glucose 119 mg/dL (75-100) H 12/15/19 16:30 Hemoglobin A1c 4.9 % (4-6) 12/11/19 02:13 Calcium 8.9 mg/dL (8.4-10.2) 12/15/19 16:30 Ferritin > 2000.0 ng/mL (13.0-400.0) H 12/17/19 15:23 Total Bilirubin 1.90 mg/dL (0.1-1.2) H 12/11/19 02:13 AST 80 units/L (5-40) H 12/11/19 02:13 ALT 72 units/L (7-56) H 12/11/19 02:13 Alkaline Phosphatase 103 units/L (35-129) 12/11/19 02:13 Lactate Dehydrogenase 312 units/L (91-180) H 12/17/19 15:23 C-Reactive Protein 19.30 mg/dL (0.00-1.30) H 12/17/19 15:23 Total Protein 6.0 g/dL (6.3-8.2) L 12/11/19 02:13 Albumin 3.6 g/dL (3.9-5) L 12/11/19 02:13 Albumin/Globulin Ratio 1.5 % 12/11/19 02:13 Procalcitonin 0.32 ng/mL (<0.15) 12/17/19 15:23 Urine Color Yellow (Yellow) 12/15/19 19: Urine Turbidity Clear (Clear) 12/15/19 19: Urine pH 7.0 (5.0-7.0) 12/15/19 19: Ur Specific [place] 1.008 (1.003-1.030) 12/15/19 19: Urine Protein <15 mg/dl mg/dL (Negative) 12/15/19 19: Urine Glucose (UA) Neg mg/dL (Negative) 12/15/19 19 Urine Ketones Neg mg/dL (Negative) 12/15/19 19: Urine Blood Neg (Negative) 12/15/19 19: Urine Nitrite Neg (Negative) 12/15/19 19: Urine Bilirubin Neg (Negative) 12/15/19 19: Urine Urobilinogen 2.0 mg/dL (<2.0) 12/15/19 19: Ur Leukocyte Esterase Neg (Negative) 12/15/19 19: Urine WBC (Auto) 1.0 /HPF (0.0-6.0) 12/15/19 19: Urine RBC (Auto) 1.0 /HPF (0.0-6.0) 12/15/19 19:29 Hepatitis A IgM Ab Non-reactive (NonReactive) 12/11/19 01:41 Hep Bs Antigen Non-reactive (Negative) 12/11/19 01:41 Hep B Core IgM Ab Non-reactive (NonReactive) 12/11/19 01:41 Hepatitis C Antibody Non-reactive (NonReactive) 12/11/19 01:41 Influenza A (Rapid) Negative (Negative) 12/16/19 05:00 Influenza A (RT-PCR) Negative (Negative) 12/16/19 05:00 Influenza B (Rapid) Negative (Negative) 12/16/19 05:00 Influenza B (RT-PCR) Negative (Negative) 12/16/19 05:00 Microbiology: Microbiology 12/15/19 19:28 Peripheral/Venous Blood Culture - Preliminary NO GROWTH AFTER 48 HOURS 12/15/19 19:28 Peripheral/Venous Blood Culture - Preliminary NO GROWTH AFTER 48 HOURS Castrejon/IV: Voiding Method Urinal IV Catheter Type [Right Upper Mid-line arm] IV Catheter Type [Right INT / Saline Lock Antecubital] IV Catheter Type [Left Upper Double Lumen Cath arm] IV Catheter Type [Left INT / Saline Lock Antecubital] IV Catheter Type [Right Peripheral IV Forearm] Active Medications - Current Medications Current Medications: Generic Name Dose Route Start Last Admin Trade Name Freq PRN Reason Stop Dose Admin Acetaminophen 650 mg 12/10/19 19:43 Tylenol PO Q4H PRN Pain MILD(1-3)/Fever >100.5/URIAS Diphenhydramine HCl 25 mg 12/14/19 11:06 12/18/19 07:50 Benadryl IV 25 mg Q6H PRN Administration Itching Enoxaparin Sodium 40 mg 12/11/19 22:00 12/17/19 22:57 Enoxaparin SUB-Q Not Given QDAY@2200 MALISSA Folic Acid 1 mg 12/10/19 20:00 12/18/19 09:44 Folvite PO 1 mg DAILY MALISSA Administration Hydromorphone HCl 1 mg 12/16/19 15:37 12/18/19 07:50 Dilaudid IV 1 mg Q6HR PRN Administration Pain , Severe (7-10) Hydroxyurea 500 mg 12/10/19 22:00 12/18/19 09:45 Hydroxyurea PO 500 mg BID MALISSA Administration Dextrose/Sodium Chloride 1,000 mls @ 125 mls/hr 12/10/19 20:00 12/18/19 07:50 D5ns IV 125 mls/hr DIRECT MALISSA Administration Vancomycin HCl 1 gm in 250 mls @ 166.667 mls/hr 12/16/19 10:00 12/18/19 09:44 Vancomycin/Ns 1 Gm/250 Ml IV 166.667 mls/hr Q8H MALISSA Administration Cefepime HCl 2 gm in 100 mls @ 200 mls/hr 12/16/19 22:00 12/18/19 06:01 Cefepime/Ns 2 Gm/100 Ml IV 200 mls/hr Q8HR MALISSA Administration Protocol Magnesium Hydroxide 30 ml 12/11/19 08:59 Milk Of Magnesia PO Q4H PRN Constipation Metoclopramide HCl 10 mg 12/10/19 19:46 Reglan IV Q6H PRN Nausea And Vomiting Ondansetron HCl 4 mg 12/10/19 19:46 12/13/19 17:47 Zofran IV 4 mg Q8H PRN Administration Nausea And Vomiting Oxycodone HCl 10 mg 12/10/19 20:00 12/18/19 09:47 Roxicodone PO 10 mg Q6H PRN Administration Pain, Moderate (4-6) Sodium Chloride 10 ml 12/10/19 22:00 12/18/19 09:44 Sodium Chloride Flush Syringe 10 Ml IV 10 ml BID MALISSA Administration Sodium Chloride 10 ml 12/10/19 19:43 12/15/19 00:10 Sodium Chloride Flush Syringe 10 Ml IV 10 ml PRN PRN Administration LINE FLUSH Nutrition/Malnutrition Assess - Dietary Evaluation Nutrition/Malnutrition Findings: Nutrition Notes Start: 12/11/19 14:29 Freq: Status: Active Protocol: Document 12/17/19 13:10 LM (Rec: 12/17/19 13:14 LM [email or web address]) Nutrition Notes Initial or Follow up Reassessment Other Pertinent Diagnosis sickle cell crisis, anxiety, depression Current Diet Regular Labs/Tests Na 134 K 5.1 Pertinent Medications Reviewed Height 5 ft 10 in Weight 68.039 kg [place] Body Weight (kg) 75.45 BMI 21.5 Weight Status Appropriate Subjective/Other Information pt stated his appetite is better. Pt ate 80% of breakfast and is drinking Ensure. Percent of energy/protein needs met: 100%/100% Burn Absent Trauma Absent GI Symptoms None Current % PO Good (75-100%) Minimum of two criteria No Interpretation of Weight Loss (severe) >2% in 1 week #1 Nutrition Diagnosis Inadequate oral intake As Evidenced by Signs and Symptoms Pt eating 80% Diagnosis Progress(for reassessment Improved documentation) Is patient on ventilator? No Is Patient Ambulatory and/or Out of Bed Yes REE-([facility]-ambulatory/OOB) [ 2049.632 NUTR.MSJOOB] Calculation Used for Recommendations [facility] Additional Notes Protein: 54-68g (0.8-1g/kg) Fluid: 1ml/kcal Nutrition Intervention Change Diet Order: Continue regular diet Add Supplement/Snack (indicate name/kcal Ensure Enlive TID /protein ) Provides kCal: 1,050 Provides Protein (gm) 60 Goal #1 Meet at least 80% of energy and protein needs Anticipated Discharge Needs: Regular diet with ONS Follow-Up By: 12/23/19 Additional Comments F/U for stable intakes
--- NOTE | 2019-12-18 11:14 | Cat Scan Report ---
CT CHEST, ABDOMEN, AND PELVIS WITHOUT CONTRAST INDICATION: FUO and sickle cell disease CONTRAST: Without IV, patient did not wish to have IV contrast COMPARISON: None available. All CT scans at this location are performed using CT dose reduction for ALARA by means of automated e xposure control. FINDINGS: Diffuse bony sclerosis typical of sickle cell disease is seen without obvious fracture or o ther focal change. Though only scattered small nodes are seen in the left axilla, the right axilla shows diffuse edema/i nflammation as well as mild adenopathy and water. To be tortuous perhaps collateral vessels. Many of these vessels contain small gas bubbles with 2 tiny bubbles seen more medially in what appears to be the right subclavian vein. The right brachiocephalic vein appears very small and stenotic and shows w all amount of calcification. Mild possible edema is seen in the superior aspect of the anterior media stinum with a few small nodes are also seen in this area but I do not see obvious adenopathy in the r emainder of the mediastinum or clearly seen in the hilar structures. Small pericardial effusion is no georgina. No pleural effusions are seen. Mild motion artifact is noted in the lung schrader but no areas of consolidation are noted with only slight atelectasis and/or scarring seen. Mild some of this changes are noted. No discrete pulmonary nodules or masses are seen. Mild diffuse probably chronic increased interstitial markings are noted. A calcified granuloma is seen laterally in the right lower lobe. Motion artifact degrades images of the abdomen, particularly the upper abdomen. No pneumoperitoneum i s seen. No significant abdominal wall herniation is noted. No definite lymphadenopathy is seen. Gallb ladder has been removed. Multiple metallic presumed clips are seen extending inferiorly from the gall bladder fossa area causing artifact. Pneumobilia is noted. Extrahepatic biliary prominence is noted w ith the common bile duct measuring 12 mm at the level the head of the pancreas. No pancreatic mass is obvious. The hepatic parenchyma shows increased density with average parenchymal measurement in the right lobe of 97 Hounsfield units. Liver is also enlarged and has a length of 21 cm. No definite foca l hepatic lesions are seen. Spleen is very small likely related to autoinfarction. No urinary tract c alculi or evidence of obstruction are seen. No masses are noted. Moderate amount of stool is seen in nondilated colon. Stomach is prominently distended with food, fluid, and small amount of air. I do no t see bowel dilatation to suggest bowel obstruction. No definite focal inflammatory changes are seen. No free fluid is noted. No abdominal or pelvic lymphadenopathy are seen. No evidence of abscess is n oted. What appears to be the appendix shows no obvious abnormalities. IMPRESSION: 1. Abnormal appearance to the right axilla as above with mild adenopathy, probable collateral vessels , and edema/inflammation. I strongly suspect there is marked stenosis of the right brachiocephalic ve in with collaterals. There is a small amount of gas in what appear to be several of these vessels in the right axilla and minimally in the right subclavian vein which presumably relates to intravenous i njections. 2. Abnormal appearance of the liver with enlargement and increased parenchymal density. This could re late to hemachromatosis in this sickle cell patient though the density possibly could be a drug effec t. Clinical correlation is suggested. 3. Extra hepatic biliary dilatation and pneumobilia and a postcholecystectomy patient. Chronicity is unclear. Clinical correlation is suggested. 4. Evidence of mild constipation Signer Name: Bacilio Yin MD Signed: 12/18/2019 11:10 AM Workstation Name: [id number]
--- NOTE | 2019-12-18 14:39 | Progress Note ---
Assessment and Plan Cultures: Blood culture 12/10/2019 and 12/15/2019 no growth Assessment: 44 y/o male with history of SCD, previous suicidal attempt and cocaine/marihuana use, admitted on 12/11/2019 complaining of 24 hour-history of diffuse body pain, now with fever: #FUO associated with sickle cell disease crisis: improving; unclear etiology ?phlebitis (?IVDU), CT non contrasted shows right axillary mild LN with air bubbles in deep vessels subclavian. UA neg. Blood cx neg. CXR x 2 neg. Influenza neg. Venous US no DVT. DDx: COVID infection, parvovirus, acute chest syndrome, PE, pneumonia. No headaches so doubt meningitis, blood culture x 2 negative so doubt bacteremia, no cough or hypoxemia so doubt acute chest syndrome or pneumonia. Procal=0.3. markers for severe COVID elevated - ferritin>2000, CRP 19, Ddimer 1698, LDH 312, however can be seen on SCD #Elevated LFTs from SCD crisis: r/o cholecystitis (denies abdominal pain) Recommendations: obtain UDS obtain COVID test - patient is adamantly refusing despite multiple explanations of need transfer to COVID unit continue vancomycin - may stop in 1-2 days continue cefepime 2g IV q 8 hour (fever resolved after adding cefepime) f/u EBV/CMV antibody - pending Will follow. Gail Irizarry MD Infectious Diseases Copywriter [facility] ([facility]) M [phone] O [phone] Subjective Date of service: 12/18/19 Principal diagnosis: FUO Interval history: Feels the same with body aches, fever improving Objective - Exam Narrative Exam: General appearance: Alert in NAD Eyes: icteric sclerae, moist conjunctivae; no lid-lag; PERRLA HENT: Atraumatic; oropharynx clear Lungs: CTA, with normal respiratory effort and no intercostal retractions CV: tachycardic Abdomen: Soft, non-tender; no masses or hepatosplenomegaly Extremities: no edema, no cyanosis, no joint effusion Skin: No rash. Psych: no agitated Neuro: alert and oriented x 3. Moving all extermities - Constitutional Vitals: Vital Signs Temp Pulse Resp BP Pulse Ox 98.7 F 88 20 110/68 100 12/18/19 12:00 12/18/19 12:00 12/18/19 12:00 12/18/19 12:00 12/18/19 12:00 Temperature -Last 24 Hours Temperature 98.7 F Temperature 99.0 F Temperature 98.9 F Temperature 99.9 F Temperature 100.5 F Temperature 101.4 F - Labs CBC & Chem 7: 12/15/19 16:30 12/15/19 16:30 Labs: Abnormal lab results 12/17/19 12/17/19 12/17/19 Range/Units 15:23 15:23 15:23 D-Dimer 1698.60 H (0-234) ng/mlDDU Ferritin > 2000.0 H (13.0-400.0) ng/mL Lactate Dehydrogenase 312 H (91-180) units/L C-Reactive Protein 19.30 H (0.00-1.30) mg/dL
[2019-12-18 15:57] LABS: Basophils # (Auto) 0.1 K/mm3 (0.0-0.1); Basophils % (Auto) 0.5 % (0.0-1.8); Eosinophils # (Auto) 0.4 K/mm3 (0.0-0.4); Eosinophils % (Auto) 2.3 % (0.0-4.3); Hematocrit 21.3 % (35.5-45.6); Hemoglobin 7.1 gm/dl (11.8-15.2); Lymphocytes # (Auto) 1.9 K/mm3 (1.2-5.4); Lymphocytes % (Auto) 11.3 % (13.4-35.0); Mean Corpuscular HGB Conc 33 % (32-34); Mean Corpuscular Volume 94 fl (84-94); Monocytes # (Auto) 2.4 K/mm3 (0.0-0.8); Monocytes % (Auto) 14.3 % (0.0-7.3); Platelet Count 391 K/mm3 (140-440); Red Blood Count 2.27 M/mm3 (3.65-5.03)
[2019-12-18 16:09] LABS: Red Cell Distribution Width 24.2 % (13.2-15.2)
[2019-12-18] MEDS: ENOXAPARIN 40 MG/0.4 ML INJ SUB-Q SCH (21:14)
[2019-12-19] MEDS: VANCOMYCIN/NS 1 GM/250 ML 1 GM/250 ML BAG IV SCH (02:46)
[2019-12-19] MEDS: diphenhydrAMINE 50 MG/ML VIAL IV PRN ×4 (02:55→21:26)
[2019-12-19] MEDS: HYDROmorphone 1 MG/1 ML INJ IV PRN ×4 (02:56→21:25)
[2019-12-19] MEDS: CEFEPIME/NS 2 GM/100 ML 2 GM/100 ML BAG IV SCH ×3 (05:09→21:00)
[2019-12-19] MEDS: oxyCODONE 5 MG TAB PO PRN ×3 (05:40→18:16)
[2019-12-19 06:29] LABS: Amphetamine Screen,Urine PRESUMPTIVE NEGATIVE; Benzodiazepines Screen,Urine PRESUMPTIVE NEGATIVE; Cannabinoid Screen,Urine PRESUMPTIVE NEGATIVE; Cocaine Screen,Urine PRESUMPTIVE NEGATIVE; Methadone Screen,Urine PRESUMPTIVE NEGATIVE; Opiate Screen,Urine PRESUMPTIVE NEGATIVE
[2019-12-19] MEDS: HYDROXYUREA 500 MG CAP PO SCH ×2 (09:06→21:24)
[2019-12-19] MEDS: FOLIC ACID 1 MG TAB PO SCH (09:06)
[2019-12-19] MEDS: D5W/0.9% NACL 1,000 ML IV SCH ×2 (09:06→21:24)
--- NOTE | 2019-12-19 10:22 | Progress Note ---
Assessment and Plan Assessment and plan: SIRS/FUO. ?phlebitis (?IVDU), CT non contrasted shows right axillary mild LN with air bubbles in deep vessels subclavian. UA neg. Blood cx neg. CXR x 2 neg. Influenza neg. Venous US no DVT. DDx: COVID infection, parvovirus, acute chest syndrome, PE, pneumonia. 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 12/12/2019 Patient with sickle cell vaso-occlusive crisis. Slight improvement in pain. Continue current management. Hopefully dc home in 1-2 days 12/13/19 Patient with sickle cell with vaso-occlusive crisis. He is still in pain. has problems with iv access for iv Narcotics. iv nurse to re-evaluate. 12/14/19 Patient with sickle cell with vaso-occlusive crisis. says he is still in pain, asking for more Dilaudid. He is on Dilaudid 2mg iv q 3hr. Not stable for discharge yet. Continue iv fluid 12/15/2019. Patient with sickle cell with vaso-occlusive crisis. We will attempt to wean off of IV Dilaudid. Continue p.o. pain medications. 12/16/2019. Patient with SIRS. Significant leukocytosis and fever since yesterday. Consult ID for further evaluation. Chest x-ray and urinalysis negative. Initial blood cultures were negative. Repeat blood cultures pending. Continue empiric antibiotics. 12/17/2019. Patient still with persistent fevers. ID consulted. Obtain COVID test, influenza PCR, procalcitonin, CRP, d-dimer and ferritin. Follow-up CT chest, abdomen and pelvis. Follow-up venous ultrasound. Continue antibiotics of vancomycin and cefepime. 12/18/2019. Patient refused COVID testing. Continue to follow-up procalcitonin, CRP, d-dimer and ferritin levels. CT chest, abdomen and pelvis ordered but patient refused contrast. Continue vancomycin and cefepime. ID following. 12/19/2019. Fevers have resolved. CT non contrasted shows right axillary mild LN with air bubbles in deep vessels subclavian. ?phlebitis (?IVDU). Urine drug screen negative. COVID test pending. Continue vancomycin/cefepime per ID recommendations. Follow-up EBV/CMV antibody testing. History Interval history: Patient fevers have resolved. Hospitalist Physical - Constitutional Vitals: Temp Pulse Resp BP Pulse Ox 98.9 F 73 18 135/52 96 12/19/19 09:30 12/19/19 09:30 12/19/19 09:30 12/19/19 09:30 12/19/19 09:30 General appearance: Present: no acute distress, well-nourished - EENT Eyes: Present: PERRL, EOM intact ENT: hearing intact, clear oral mucosa, dentition normal - Neck Neck: Present: supple, normal ROM - Respiratory Respiratory effort: normal Respiratory: bilateral: CTA - Cardiovascular Rhythm: regular Heart Sounds: Present: S1 & S2. Absent: gallop, rub - Extremities Extremities: no ischemia, No edema, Full ROM - Abdominal General gastrointestinal: soft, non-tender, non-distended, normal bowel sounds - Integumentary Integumentary: Present: clear, warm, dry - Neurologic Neurologic: CNII-XII intact, moves all extremities Results - Labs CBC & Chem 7: 12/18/19 15:04 12/15/19 16:30 Labs: Laboratory Last Values WBC 16.4 K/mm3 (4.5-11.0) H 12/18/19 15:04 RBC 2.27 M/mm3 (3.65-5.03) L 12/18/19 15:04 Hgb 7.1 gm/dl (11.8-15.2) L 12/18/19 15:04 Hct 21.3 % (35.5-45.6) L 12/18/19 15:04 MCV 94 fl (84-94) 12/18/19 15:04 MCH 31 pg (28-32) 12/18/19 15:04 MCHC 33 % (32-34) 12/18/19 15:04 RDW 24.2 % (13.2-15.2) H 12/18/19 15:04 Plt Count 391 K/mm3 (140-440) 12/18/19 15:04 Lymph % (Auto) 11.3 % (13.4-35.0) L 12/18/19 15:04 [place] % (Auto) 14.3 % (0.0-7.3) H 12/18/19 15:04 Eos % (Auto) 2.3 % (0.0-4.3) 12/18/19 15:04 Baso % (Auto) 0.5 % (0.0-1.8) 12/18/19 15:04 Lymph # 1.9 K/mm3 (1.2-5.4) 12/18/19 15:04 [place] # 2.4 K/mm3 (0.0-0.8) H 12/18/19 15:04 Eos # 0.4 K/mm3 (0.0-0.4) 12/18/19 15:04 Baso # 0.1 K/mm3 (0.0-0.1) 12/18/19 15:04 Seg Neutrophils % 71.6 % (40.0-70.0) H 12/18/19 15:04 Seg Neutrophils # 11.7 K/mm3 (1.8-7.7) H 12/18/19 15:04 Percent Retic 3.26 % (0.78-2.58) H 12/15/19 16:30 D-Dimer 1698.60 ng/mlDDU (0-234) H 12/17/19 15:23 Sodium 134 mmol/L (137-145) L 12/15/19 16:30 Potassium 5.1 mmol/L (3.6-5.0) H D 12/15/19 16:30 Chloride 99.9 mmol/L (98-107) 12/15/19 16:30 Carbon Dioxide 25 mmol/L (22-30) 12/15/19 16:30 Anion Gap 14 mmol/L 12/15/19 16:30 BUN 8 mg/dL (9-20) L 12/15/19 16:30 Creatinine 0.9 mg/dL (0.8-1.5) 12/15/19 16:30 Estimated GFR > 60 ml/min 12/15/19 16:30 BUN/Creatinine Ratio 9 % 12/15/19 16:30 Glucose 119 mg/dL (75-100) H 12/15/19 16:30 Hemoglobin A1c 4.9 % (4-6) 12/11/19 02:13 Calcium 8.9 mg/dL (8.4-10.2) 12/15/19 16:30 Ferritin > 2000.0 ng/mL (13.0-400.0) H 12/17/19 15:23 Total Bilirubin 1.90 mg/dL (0.1-1.2) H 12/11/19 02:13 AST 80 units/L (5-40) H 12/11/19 02:13 ALT 72 units/L (7-56) H 12/11/19 02:13 Alkaline Phosphatase 103 units/L (35-129) 12/11/19 02:13 Lactate Dehydrogenase 312 units/L (91-180) H 12/17/19 15:23 C-Reactive Protein 19.30 mg/dL (0.00-1.30) H 12/17/19 15:23 Total Protein 6.0 g/dL (6.3-8.2) L 12/11/19 02:13 Albumin 3.6 g/dL (3.9-5) L 12/11/19 02:13 Albumin/Globulin Ratio 1.5 % 12/11/19 02:13 Procalcitonin 0.32 ng/mL (<0.15) 12/17/19 15:23 Urine Color Yellow (Yellow) 12/15/19 19:29 Urine Turbidity Clear (Clear) 12/15/19 19: Urine pH 7.0 (5.0-7.0) 12/15/19 19: Ur Specific Rescue 1.008 (1.003-1.030) 12/15/19 19: Urine Protein <15 mg/dl mg/dL (Negative) 12/15/19 19: Urine Glucose (UA) Neg mg/dL (Negative) 12/15/19 19: Urine Ketones Neg mg/dL (Negative) 12/15/19 19: Urine Blood Neg (Negative) 12/15/19 19: Urine Nitrite Neg (Negative) 12/15/19 19: Urine Bilirubin Neg (Negative) 12/15/19 19: Urine Urobilinogen 2.0 mg/dL (<2.0) 12/15/19 19: Ur Leukocyte Esterase Neg (Negative) 12/15/19 19: Urine WBC (Auto) 1.0 /HPF (0.0-6.0) 12/15/19 19: Urine RBC (Auto) 1.0 /HPF (0.0-6.0) 12/15/19 19: Vancomycin Trough 32.8 ug/mL (5.0-20.0) H 12/18/19 18:52 Urine Opiates Screen Presumptive negative 12/19/19 06:01 Urine Methadone Screen Presumptive negative 12/19/19 06:01 Ur Barbiturates Screen Presumptive negative 12/19/19 06:01 Ur Phencyclidine Scrn Presumptive negative 12/19/19 06:01 Ur Amphetamines Screen Presumptive negative 12/19/19 06:01 U Benzodiazepines Scrn Presumptive negative 12/19/19 06:01 Urine Cocaine Screen Presumptive negative 12/19/19 06:01 U Marijuana (THC) Screen Presumptive negative 12/19/19 06:01 Drugs of Abuse Note Disclamer 12/19/19 06:01 Hepatitis A IgM Ab Non-reactive (NonReactive) 12/11/19 01:41 Hep Bs Antigen Non-reactive (Negative) 12/11/19 01:41 Hep B Core IgM Ab Non-reactive (NonReactive) 12/11/19 01:41 Hepatitis C Antibody Non-reactive (NonReactive) 12/11/19 01:41 Influenza A (Rapid) Negative (Negative) 12/16/19 05:00 Influenza A (RT-PCR) Negative (Negative) 12/16/19 05:00 Influenza B (Rapid) Negative (Negative) 12/16/19 05:00 Influenza B (RT-PCR) Negative (Negative) 12/16/19 05:00 Microbiology: Microbiology 12/15/19 19:28 Peripheral/Venous Blood Culture - Preliminary NO GROWTH AFTER 72 HOURS 12/15/19 19:28 Peripheral/Venous Blood Culture - Preliminary NO GROWTH AFTER 72 HOURS Castrejon/IV: Voiding Method Urinal IV Catheter Type [Right Upper Mid-line arm] IV Catheter Type [Right INT / Saline Lock Antecubital] IV Catheter Type [Left Upper Double Lumen Cath arm] IV Catheter Type [Left INT / Saline Lock Antecubital] IV Catheter Type [Right Peripheral IV Forearm] Active Medications - Current Medications Current Medications: Generic Name Dose Route Start Last Admin Trade Name Freq PRN Reason Stop Dose Admin Acetaminophen 650 mg 12/10/19 19:43 Tylenol PO Q4H PRN Pain MILD(1-3)/Fever >100.5/URIAS Diphenhydramine HCl 25 mg 12/14/19 11:06 12/19/19 09:06 Benadryl IV 25 mg Q6H PRN Administration Itching Enoxaparin Sodium 40 mg 12/11/19 22:00 12/18/19 21:14 Enoxaparin SUB-Q Not Given QDAY@2200 [facility] Folic Acid 1 mg 12/10/19 20:00 12/19/19 09:06 Folvite PO 1 mg DAILY MALISSA Administration Hydromorphone HCl 1 mg 12/16/19 15:37 12/19/19 09:06 Dilaudid IV 1 mg Q6HR PRN Administration Pain , Severe (7-10) Hydroxyurea 500 mg 12/10/19 22:00 12/19/19 09:06 Hydroxyurea PO 500 mg BID MALISSA Administration Dextrose/Sodium Chloride 1,000 mls @ 125 mls/hr 12/10/19 20:00 12/19/19 09:06 D5ns IV 125 mls/hr DIRECT MALISSA Administration Cefepime HCl 2 gm in 100 mls @ 200 mls/hr 12/16/19 22:00 12/19/19 05:09 Cefepime/Ns 2 Gm/100 Ml IV 200 mls/hr Q8HR MALISSA Administration Protocol Magnesium Hydroxide 30 ml 12/11/19 08:59 Milk Of Magnesia PO Q4H PRN Constipation Metoclopramide HCl 10 mg 12/10/19 19:46 Reglan IV Q6H PRN Nausea And Vomiting Ondansetron HCl 4 mg 12/10/19 19:46 12/13/19 17:47 Zofran IV 4 mg Q8H PRN Administration Nausea And Vomiting Oxycodone HCl 10 mg 12/10/19 20:00 12/19/19 05:40 Roxicodone PO 10 mg Q6H PRN Administration Pain, Moderate (4-6) Sodium Chloride 10 ml 12/10/19 22:00 12/19/19 09:07 Sodium Chloride Flush Syringe 10 Ml IV 10 ml BID MALISSA Administration Sodium Chloride 10 ml 12/10/19 19:43 12/15/19 00:10 Sodium Chloride Flush Syringe 10 Ml IV 10 ml PRN PRN Administration LINE FLUSH Nutrition/Malnutrition Assess - Dietary Evaluation Nutrition/Malnutrition Findings: Nutrition Notes Start: 12/11/19 14:29 Freq: Status: Active Protocol: Document 12/17/19 13:10 LM (Rec: 12/17/19 13:14 LM [email or web address]) Nutrition Notes Initial or Follow up Reassessment Other Pertinent Diagnosis sickle cell crisis, anxiety, depression Current Diet Regular Labs/Tests Na 134 K 5.1 Pertinent Medications Reviewed Height 5 ft 10 in Weight 68.039 kg [place] Body Weight (kg) 75.45 BMI 21.5 Weight Status Appropriate Subjective/Other Information pt stated his appetite is better. Pt ate 80% of breakfast and is drinking Ensure. Percent of energy/protein needs met: 100%/100% Burn Absent Trauma Absent GI Symptoms None Current % PO Good (75-100%) Minimum of two criteria No Interpretation of Weight Loss (severe) >2% in 1 week #1 Nutrition Diagnosis Inadequate oral intake As Evidenced by Signs and Symptoms Pt eating 80% Diagnosis Progress(for reassessment Improved documentation) Is patient on ventilator? No Is Patient Ambulatory and/or Out of Bed Yes REE-([facility]-ambulatory/OOB) [ 2049.632 [id number]] Calculation Used for Recommendations [facility] Additional Notes Protein: 54-68g (0.8-1g/kg) Fluid: 1ml/kcal Nutrition Intervention Change Diet Order: Continue regular diet Add Supplement/Snack (indicate name/kcal Ensure Enlive TID /protein ) Provides kCal: 1,050 Provides Protein (gm) 60 Goal #1 Meet at least 80% of energy and protein needs Anticipated Discharge Needs: Regular diet with ONS Follow-Up By: 12/23/19 Additional Comments F/U for stable intakes
[2019-12-19] MEDS: ENOXAPARIN 40 MG/0.4 ML INJ SUB-Q SCH (21:23)
[2019-12-20] MEDS: oxyCODONE 5 MG TAB PO PRN ×4 (00:09→21:27)
[2019-12-20] MEDS: HYDROmorphone 1 MG/1 ML INJ IV PRN ×4 (04:21→23:23)
[2019-12-20] MEDS: CEFEPIME/NS 2 GM/100 ML 2 GM/100 ML BAG IV SCH ×5 (04:22→22:19)
[2019-12-20] MEDS: diphenhydrAMINE 50 MG/ML VIAL IV PRN ×4 (04:22→23:22)
[2019-12-20] MEDS: D5W/0.9% NACL 1,000 ML IV SCH ×2 (04:23→22:30)
--- NOTE | 2019-12-20 09:01 | Progress Note ---
Assessment and Plan Assessment and plan: SIRS/FUO. ?phlebitis (?IVDU), CT non contrasted shows right axillary mild LN with air bubbles in deep vessels subclavian. UA neg. Blood cx neg. CXR x 2 neg. Influenza neg. Venous US no DVT. DDx: COVID infection, parvovirus, acute chest syndrome, PE, pneumonia. 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 12/12/2019 Patient with sickle cell vaso-occlusive crisis. Slight improvement in pain. Continue current management. Hopefully dc home in 1-2 days 12/13/19 Patient with sickle cell with vaso-occlusive crisis. He is still in pain. has problems with iv access for iv Narcotics. iv nurse to re-evaluate. 12/14/19 Patient with sickle cell with vaso-occlusive crisis. says he is still in pain, asking for more Dilaudid. He is on Dilaudid 2mg iv q 3hr. Not stable for discharge yet. Continue iv fluid 12/15/2019. Patient with sickle cell with vaso-occlusive crisis. We will attempt to wean off of IV Dilaudid. Continue p.o. pain medications. 12/16/2019. Patient with SIRS. Significant leukocytosis and fever since yesterday. Consult ID for further evaluation. Chest x-ray and urinalysis negative. Initial blood cultures were negative. Repeat blood cultures pending. Continue empiric antibiotics. 12/17/2019. Patient still with persistent fevers. ID consulted. Obtain COVID test, influenza PCR, procalcitonin, CRP, d-dimer and ferritin. Follow-up CT chest, abdomen and pelvis. Follow-up venous ultrasound. Continue antibiotics of vancomycin and cefepime. 12/18/2019. Patient refused COVID testing. Continue to follow-up procalcitonin, CRP, d-dimer and ferritin levels. CT chest, abdomen and pelvis ordered but patient refused contrast. Continue vancomycin and cefepime. ID following. 12/19/2019. Fevers have resolved. CT non contrasted shows right axillary mild LN with air bubbles in deep vessels subclavian. ?phlebitis (?IVDU). Urine drug screen negative. COVID test pending. Continue vancomycin/cefepime per ID recommendations. Follow-up EBV/CMV antibody testing. 12/20/2019. Fevers have resolved. CT non contrasted shows right axillary mild LN with air bubbles in deep vessels subclavian. ?phlebitis (?IVDU). Patient denies IV drug abuse. Urine drug screen negative. COVID test negative. Continue antibiotics per ID recommendations. History Interval history: Patient fevers have resolved. Patient sleeping Hospitalist Physical - Constitutional Vitals: Temp Pulse Resp BP Pulse Ox 98.0 F 76 18 99/48 98 12/20/19 04:59 12/20/19 04:59 12/20/19 04:59 12/20/19 04:59 12/20/19 04:59 General appearance: Present: no acute distress, well-nourished - EENT Eyes: Present: PERRL, EOM intact ENT: hearing intact, clear oral mucosa, dentition normal - Neck Neck: Present: supple, normal ROM - Respiratory Respiratory effort: normal Respiratory: bilateral: CTA - Cardiovascular Rhythm: regular Heart Sounds: Present: S1 & S2. Absent: gallop, rub - Extremities Extremities: no ischemia, No edema, Full ROM - Abdominal General gastrointestinal: soft, non-tender, non-distended, normal bowel sounds - Integumentary Integumentary: Present: clear, warm, dry - Neurologic Neurologic: CNII-XII intact, moves all extremities Results - Labs CBC & Chem 7: 12/18/19 15:04 12/15/19 16:30 Labs: Laboratory Last Values WBC 16.4 K/mm3 (4.5-11.0) H 12/18/19 15:04 RBC 2.27 M/mm3 (3.65-5.03) L 12/18/19 15:04 Hgb 7.1 gm/dl (11.8-15.2) L 12/18/19 15:04 Hct 21.3 % (35.5-45.6) L 12/18/19 15:04 MCV 94 fl (84-94) 12/18/19 15:04 MCH 31 pg (28-32) 12/18/19 15:04 MCHC 33 % (32-34) 12/18/19 15:04 RDW 24.2 % (13.2-15.2) H 12/18/19 15:04 Plt Count 391 K/mm3 (140-440) 12/18/19 15:04 Lymph % (Auto) 11.3 % (13.4-35.0) L 12/18/19 15:04 [place] % (Auto) 14.3 % (0.0-7.3) H 12/18/19 15:04 Eos % (Auto) 2.3 % (0.0-4.3) 12/18/19 15:04 Baso % (Auto) 0.5 % (0.0-1.8) 12/18/19 15:04 Lymph # 1.9 K/mm3 (1.2-5.4) 12/18/19 15:04 [place] # 2.4 K/mm3 (0.0-0.8) H 12/18/19 15:04 Eos # 0.4 K/mm3 (0.0-0.4) 12/18/19 15:04 Baso # 0.1 K/mm3 (0.0-0.1) 12/18/19 15:04 Seg Neutrophils % 71.6 % (40.0-70.0) H 12/18/19 15:04 Seg Neutrophils # 11.7 K/mm3 (1.8-7.7) H 12/18/19 15:04 Percent Retic 3.26 % (0.78-2.58) H 12/15/19 16:30 D-Dimer 1698.60 ng/mlDDU (0-234) H 12/17/19 15:23 Sodium 134 mmol/L (137-145) L 12/15/19 16:30 Potassium 5.1 mmol/L (3.6-5.0) H D 12/15/19 16:30 Chloride 99.9 mmol/L (98-107) 12/15/19 16:30 Carbon Dioxide 25 mmol/L (22-30) 12/15/19 16:30 Anion Gap 14 mmol/L 12/15/19 16:30 BUN 8 mg/dL (9-20) L 12/15/19 16:30 Creatinine 0.9 mg/dL (0.8-1.5) 12/15/19 16:30 Estimated GFR > 60 ml/min 12/15/19 16:30 BUN/Creatinine Ratio 9 % 12/15/19 16:30 Glucose 119 mg/dL (75-100) H 12/15/19 16:30 Hemoglobin A1c 4.9 % (4-6) 12/11/19 02:13 Calcium 8.9 mg/dL (8.4-10.2) 12/15/19 16:30 Ferritin > 2000.0 ng/mL (13.0-400.0) H 12/17/19 15:23 Total Bilirubin 1.90 mg/dL (0.1-1.2) H 12/11/19 02:13 AST 80 units/L (5-40) H 12/11/19 02:13 ALT 72 units/L (7-56) H 12/11/19 02:13 Alkaline Phosphatase 103 units/L (35-129) 12/11/19 02:13 Lactate Dehydrogenase 312 units/L (91-180) H 12/17/19 15:23 C-Reactive Protein 19.30 mg/dL (0.00-1.30) H 12/17/19 15:23 Total Protein 6.0 g/dL (6.3-8.2) L 12/11/19 02:13 Albumin 3.6 g/dL (3.9-5) L 12/11/19 02:13 Albumin/Globulin Ratio 1.5 % 12/11/19 02:13 Procalcitonin 0.32 ng/mL (<0.15) 12/17/19 15:23 Urine Color Yellow (Yellow) 12/15/19 19: Urine Turbidity Clear (Clear) 12/15/19 19: Urine pH 7.0 (5.0-7.0) 12/15/19 19: Ur Specific [place] 1.008 (1.003-1.030) 12/15/19 19: Urine Protein <15 mg/dl mg/dL (Negative) 12/15/19 19: Urine Glucose (UA) Neg mg/dL (Negative) 12/15/19 19: Urine Ketones Neg mg/dL (Negative) 12/15/19 19: Urine Blood Neg (Negative) 12/15/19 19: Urine Nitrite Neg (Negative) 12/15/19 19: Urine Bilirubin Neg (Negative) 12/15/19 19: Urine Urobilinogen 2.0 mg/dL (<2.0) 12/15/19 19: Ur Leukocyte Esterase Neg (Negative) 12/15/19 19:29 Urine WBC (Auto) 1.0 /HPF (0.0-6.0) 12/15/19 19:29 Urine RBC (Auto) 1.0 /HPF (0.0-6.0) 12/15/19 19:29 Vancomycin Trough 32.8 ug/mL (5.0-20.0) H 12/18/19 18:52 Urine Opiates Screen Presumptive negative 12/19/19 06:01 Urine Methadone Screen Presumptive negative 12/19/19 06:01 Ur Barbiturates Screen Presumptive negative 12/19/19 06:01 Ur Phencyclidine Scrn Presumptive negative 12/19/19 06:01 Ur Amphetamines Screen Presumptive negative 12/19/19 06:01 U Benzodiazepines Scrn Presumptive negative 12/19/19 06:01 Urine Cocaine Screen Presumptive negative 12/19/19 06:01 U Marijuana (THC) Screen Presumptive negative 12/19/19 06:01 Drugs of Abuse Note Disclamer 12/19/19 06:01 Coronavirus (PCR) Negative (Negative) 12/16/19 Unknown Hepatitis A IgM Ab Non-reactive (NonReactive) 12/11/19 01:41 Hep Bs Antigen Non-reactive (Negative) 12/11/19 01:41 Hep B Core IgM Ab Non-reactive (NonReactive) 12/11/19 01:41 Hepatitis C Antibody Non-reactive (NonReactive) 12/11/19 01:41 Influenza A (Rapid) Negative (Negative) 12/16/19 05:00 Influenza A (RT-PCR) Negative (Negative) 12/16/19 05:00 Influenza B (Rapid) Negative (Negative) 12/16/19 05:00 Influenza B (RT-PCR) Negative (Negative) 12/16/19 05:00 Microbiology: Microbiology 12/15/19 19:28 Peripheral/Venous Blood Culture - Preliminary NO GROWTH AFTER 4 DAYS 12/15/19 19:28 Peripheral/Venous Blood Culture - Preliminary NO GROWTH AFTER 4 DAYS [place]/IV: Voiding Method Urinal IV Catheter Type [Right Upper Mid-line arm] IV Catheter Type [Right INT / Saline Lock Antecubital] IV Catheter Type [Left Upper INT / Saline Lock arm] IV Catheter Type [Left INT / Saline Lock Antecubital] IV Catheter Type [Right Peripheral IV Forearm] Active Medications - Current Medications Current Medications: Generic Name Dose Route Start Last Admin Trade Name Freq PRN Reason Stop Dose Admin Acetaminophen 650 mg 12/10/19 19:43 Tylenol PO Q4H PRN Pain MILD(1-3)/Fever >100.5/URIAS Diphenhydramine HCl 25 mg 12/14/19 11:06 12/20/19 04:22 Benadryl IV 25 mg Q6H PRN Administration Itching Enoxaparin Sodium 40 mg 12/11/19 22:00 12/19/19 21:23 Enoxaparin SUB-Q 40 mg QDAY@2200 MALISSA Administration Folic Acid 1 mg 12/10/19 20:00 12/19/19 09:06 Folvite PO 1 mg DAILY MALISSA Administration Hydromorphone HCl 1 mg 12/16/19 15:37 12/20/19 04:21 Dilaudid IV 1 mg Q6HR PRN Administration Pain , Severe (7-10) Hydroxyurea 500 mg 12/10/19 22:00 12/19/19 21:24 Hydroxyurea PO 500 mg BID MALISSA Administration Dextrose/Sodium Chloride 1,000 mls @ 125 mls/hr 12/10/19 20:00 12/20/19 04:23 D5ns IV 125 mls/hr DIRECT MALISSA Administration Cefepime HCl 2 gm in 100 mls @ 200 mls/hr 12/16/19 22:00 12/20/19 06:31 Cefepime/Ns 2 Gm/100 Ml IV Not Given Q8HR [facility] Protocol Magnesium Hydroxide 30 ml 12/11/19 08:59 Milk Of Magnesia PO Q4H PRN Constipation Metoclopramide HCl 10 mg 12/10/19 19:46 Reglan IV Q6H PRN Nausea And Vomiting Ondansetron HCl 4 mg 12/10/19 19:46 12/13/19 17:47 Zofran IV 4 mg Q8H PRN Administration Nausea And Vomiting Oxycodone HCl 10 mg 12/10/19 20:00 12/20/19 06:34 Roxicodone PO 10 mg Q6H PRN Administration Pain, Moderate (4-6) Sodium Chloride 10 ml 12/10/19 22:00 12/19/19 21:24 Sodium Chloride Flush Syringe 10 Ml IV 10 ml BID MALISSA Administration Sodium Chloride 10 ml 12/10/19 19:43 05/12/20 00:10 Sodium Chloride Flush Syringe 10 Ml IV 10 ml PRN PRN Administration LINE FLUSH Nutrition/Malnutrition Assess - Dietary Evaluation Nutrition/Malnutrition Findings: Nutrition Notes Start: 12/11/19 14:29 Freq: Status: Active Protocol: Document 12/17/19 13:10 LM (Rec: 12/17/19 13:14 LM [email or web address]) Nutrition Notes Initial or Follow up Reassessment Other Pertinent Diagnosis sickle cell crisis, anxiety, depression Current Diet Regular Labs/Tests Na 134 K 5.1 Pertinent Medications Reviewed Height 5 ft 10 in Weight 68.039 kg [place] Body Weight (kg) 75.45 BMI 21.5 Weight Status Appropriate Subjective/Other Information pt stated his appetite is better. Pt ate 80% of breakfast and is drinking Ensure. Percent of energy/protein needs met: 100%/100% Burn Absent Trauma Absent GI Symptoms None Current % PO Good (75-100%) Minimum of two criteria No Interpretation of Weight Loss (severe) >2% in 1 week #1 Nutrition Diagnosis Inadequate oral intake As Evidenced by Signs and Symptoms Pt eating 80% Diagnosis Progress(for reassessment Improved documentation) Is patient on ventilator? No Is Patient Ambulatory and/or Out of Bed Yes REE-([facility]-ambulatory/OOB) [ 2049.632 NUTR.MSJOOB] Calculation Used for Recommendations [facility] Additional Notes Protein: 54-68g (0.8-1g/kg) Fluid: 1ml/kcal Nutrition Intervention Change Diet Order: Continue regular diet Add Supplement/Snack (indicate name/kcal Ensure Enlive TID /protein ) Provides kCal: 1,050 Provides Protein (gm) 60 Goal #1 Meet at least 80% of energy and protein needs Anticipated Discharge Needs: Regular diet with ONS Follow-Up By: 12/23/19 Additional Comments F/U for stable intakes
[2019-12-20] MEDS: FOLIC ACID 1 MG TAB PO SCH (10:30)
[2019-12-20] MEDS: HYDROXYUREA 500 MG CAP PO SCH ×2 (10:30→21:27)
[2019-12-20] MEDS: ENOXAPARIN 40 MG/0.4 ML INJ SUB-Q SCH (21:26)
[2019-12-21] MEDS: oxyCODONE 5 MG TAB PO PRN ×4 (03:59→23:23)
[2019-12-21] MEDS: CEFEPIME/NS 2 GM/100 ML 2 GM/100 ML BAG IV SCH ×3 (06:17→21:59)
[2019-12-21] MEDS: HYDROmorphone 1 MG/1 ML INJ IV PRN ×3 (06:17→19:40)
--- NOTE | 2019-12-21 09:02 | Progress Note ---
Assessment and Plan Assessment and plan: SIRS/FUO. ?phlebitis (?IVDU), CT non contrasted shows right axillary mild LN with air bubbles in deep vessels subclavian. UA neg. Blood cx neg. CXR x 2 neg. Influenza neg. Venous US no DVT. DDx: COVID infection, parvovirus, acute chest syndrome, PE, pneumonia. 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 12/12/2019 Patient with sickle cell vaso-occlusive crisis. Slight improvement in pain. Continue current management. Hopefully dc home in 1-2 days 12/13/19 Patient with sickle cell with vaso-occlusive crisis. He is still in pain. has problems with iv access for iv Narcotics. iv nurse to re-evaluate. 12/14/19 Patient with sickle cell with vaso-occlusive crisis. says he is still in pain, asking for more Dilaudid. He is on Dilaudid 2mg iv q 3hr. Not stable for discharge yet. Continue iv fluid 12/15/2019. Patient with sickle cell with vaso-occlusive crisis. We will attempt to wean off of IV Dilaudid. Continue p.o. pain medications. 12/16/2019. Patient with SIRS. Significant leukocytosis and fever since yesterday. Consult ID for further evaluation. Chest x-ray and urinalysis negative. Initial blood cultures were negative. Repeat blood cultures pending. Continue empiric antibiotics. 12/17/2019. Patient still with persistent fevers. ID consulted. Obtain COVID test, influenza PCR, procalcitonin, CRP, d-dimer and ferritin. Follow-up CT chest, abdomen and pelvis. Follow-up venous ultrasound. Continue antibiotics of vancomycin and cefepime. 12/18/2019. Patient refused COVID testing. Continue to follow-up procalcitonin, CRP, d-dimer and ferritin levels. CT chest, abdomen and pelvis ordered but patient refused contrast. Continue vancomycin and cefepime. ID following. 12/19/2019. Fevers have resolved. CT non contrasted shows right axillary mild LN with air bubbles in deep vessels subclavian. ?phlebitis (?IVDU). Urine drug screen negative. COVID test pending. Continue vancomycin/cefepime per ID recommendations. Follow-up EBV/CMV antibody testing. 12/20/2019. Fevers have resolved. CT non contrasted shows right axillary mild LN with air bubbles in deep vessels subclavian. ?phlebitis (?IVDU). Patient denies IV drug abuse. Urine drug screen negative. COVID test negative. Continue antibiotics per ID recommendations. 12/21/2019. Patient with low-grade fever on 12/19 of 100.4. Infectious work-up essentially negative except CT non contrasted shows right axillary mild LN with air bubbles in deep vessels subclavian. ?phlebitis (?IVDU). Patient denies IV drug abuse. Urine drug screen negative. Continue antibiotics per ID recommendations. Blood cultures thus far negative. History Interval history: Patient fevers have resolved. Patient with no new issues. Hospitalist Physical - Constitutional Vitals: Temp Pulse Resp BP Pulse Ox 98.4 F 88 18 122/56 99 12/21/19 07:39 12/21/19 07:39 12/21/19 07:39 12/21/19 07:39 12/21/19 07:39 General appearance: Present: no acute distress, well-nourished - EENT Eyes: Present: PERRL, EOM intact ENT: hearing intact, clear oral mucosa, dentition normal - Neck Neck: Present: supple, normal ROM - Respiratory Respiratory effort: normal Respiratory: bilateral: CTA - Cardiovascular Rhythm: regular Heart Sounds: Present: S1 & S2. Absent: gallop, rub - Extremities Extremities: no ischemia, No edema, Full ROM - Abdominal General gastrointestinal: soft, non-tender, non-distended, normal bowel sounds - Integumentary Integumentary: Present: clear, warm, dry - Neurologic Neurologic: CNII-XII intact, moves all extremities Results - Labs CBC & Chem 7: 12/18/19 15:04 12/15/19 16:30 Labs: Laboratory Last Values WBC 16.4 K/mm3 (4.5-11.0) H 12/18/19 15:04 RBC 2.27 M/mm3 (3.65-5.03) L 12/18/19 15:04 Hgb 7.1 gm/dl (11.8-15.2) L 12/18/19 15:04 Hct 21.3 % (35.5-45.6) L 12/18/19 15:04 MCV 94 fl (84-94) 12/18/19 15:04 MCH 31 pg (28-32) 12/18/19 15:04 MCHC 33 % (32-34) 12/18/19 15:04 RDW 24.2 % (13.2-15.2) H 12/18/19 15:04 Plt Count 391 K/mm3 (140-440) 12/18/19 15:04 Lymph % (Auto) 11.3 % (13.4-35.0) L 12/18/19 15:04 [place] % (Auto) 14.3 % (0.0-7.3) H 12/18/19 15:04 Eos % (Auto) 2.3 % (0.0-4.3) 12/18/19 15:04 Baso % (Auto) 0.5 % (0.0-1.8) 12/18/19 15:04 Lymph # 1.9 K/mm3 (1.2-5.4) 12/18/19 15:04 [place] # 2.4 K/mm3 (0.0-0.8) H 12/18/19 15:04 Eos # 0.4 K/mm3 (0.0-0.4) 12/18/19 15:04 Baso # 0.1 K/mm3 (0.0-0.1) 12/18/19 15:04 Seg Neutrophils % 71.6 % (40.0-70.0) H 12/18/19 15:04 Seg Neutrophils # 11.7 K/mm3 (1.8-7.7) H 12/18/19 15:04 Percent Retic 3.26 % (0.78-2.58) H 12/15/19 16:30 D-Dimer 1698.60 ng/mlDDU (0-234) H 12/17/19 15:23 Sodium 134 mmol/L (137-145) L 12/15/19 16:30 Potassium 5.1 mmol/L (3.6-5.0) H D 12/15/19 16:30 Chloride 99.9 mmol/L (98-107) 12/15/19 16:30 Carbon Dioxide 25 mmol/L (22-30) 12/15/19 16:30 Anion Gap 14 mmol/L 12/15/19 16:30 BUN 8 mg/dL (9-20) L 12/15/19 16:30 Creatinine 0.9 mg/dL (0.8-1.5) 12/15/19 16:30 Estimated GFR > 60 ml/min 12/15/19 16:30 BUN/Creatinine Ratio 9 % 12/15/19 16:30 Glucose 119 mg/dL (75-100) H 12/15/19 16:30 Hemoglobin A1c 4.9 % (4-6) 12/11/19 02:13 Calcium 8.9 mg/dL (8.4-10.2) 12/15/19 16:30 Ferritin > 2000.0 ng/mL (13.0-400.0) H 12/17/19 15:23 Total Bilirubin 1.90 mg/dL (0.1-1.2) H 12/11/19 02:13 AST 80 units/L (5-40) H 12/11/19 02:13 ALT 72 units/L (7-56) H 12/11/19 02:13 Alkaline Phosphatase 103 units/L (35-129) 12/11/19 02:13 Lactate Dehydrogenase 312 units/L (91-180) H 12/17/19 15:23 C-Reactive Protein 19.30 mg/dL (0.00-1.30) H 12/17/19 15:23 Total Protein 6.0 g/dL (6.3-8.2) L 12/11/19 02:13 Albumin 3.6 g/dL (3.9-5) L 12/11/19 02:13 Albumin/Globulin Ratio 1.5 % 12/11/19 02:13 Procalcitonin 0.32 ng/mL (<0.15) 12/17/19 15:23 Urine Color Yellow (Yellow) 12/15/19 19:29 Urine Turbidity Clear (Clear) 12/15/19 19: Urine pH 7.0 (5.0-7.0) 12/15/19 19: Ur Specific [place] 1.008 (1.003-1.030) 12/15/19 19: Urine Protein <15 mg/dl mg/dL (Negative) 12/15/19 19: Urine Glucose (UA) Neg mg/dL (Negative) 12/15/19 19: Urine Ketones Neg mg/dL (Negative) 12/15/19 19:29 Urine Blood Neg (Negative) 12/15/19 19:29 Urine Nitrite Neg (Negative) 12/15/19 19:29 Urine Bilirubin Neg (Negative) 12/15/19 19: Urine Urobilinogen 2.0 mg/dL (<2.0) 12/15/19 19:29 Ur Leukocyte Esterase Neg (Negative) 12/15/19 19:29 Urine WBC (Auto) 1.0 /HPF (0.0-6.0) 12/15/19 19: Urine RBC (Auto) 1.0 /HPF (0.0-6.0) 12/15/19 19:29 Vancomycin Trough 32.8 ug/mL (5.0-20.0) H 12/18/19 18:52 Urine Opiates Screen Presumptive negative 12/19/19 06:01 Urine Methadone Screen Presumptive negative 12/19/19 06:01 Ur Barbiturates Screen Presumptive negative 12/19/19 06:01 Ur Phencyclidine Scrn Presumptive negative 12/19/19 06:01 Ur Amphetamines Screen Presumptive negative 12/19/19 06:01 U Benzodiazepines Scrn Presumptive negative 12/19/19 06:01 Urine Cocaine Screen Presumptive negative 12/19/19 06:01 U Marijuana (THC) Screen Presumptive negative 12/19/19 06:01 Drugs of Abuse Note Disclamer 12/19/19 06:01 Coronavirus (PCR) Negative (Negative) 12/16/19 Unknown Hepatitis A IgM Ab Non-reactive (NonReactive) 12/11/19 01:41 Hep Bs Antigen Non-reactive (Negative) 12/11/19 01:41 Hep B Core IgM Ab Non-reactive (NonReactive) 12/11/19 01:41 Hepatitis C Antibody Non-reactive (NonReactive) 12/11/19 01:41 Influenza A (Rapid) Negative (Negative) 12/16/19 05:00 Influenza A (RT-PCR) Negative (Negative) 12/16/19 05:00 Influenza B (Rapid) Negative (Negative) 12/16/19 05:00 Influenza B (RT-PCR) Negative (Negative) 12/16/19 05:00 Microbiology: Microbiology 12/15/19 19:28 Peripheral/Venous Blood Culture - Final NO GROWTH AFTER 5 DAYS 12/15/19 19:28 Peripheral/Venous Blood Culture - Final NO GROWTH AFTER 5 DAYS [place]/IV: Voiding Method Urinal IV Catheter Type [Left Forearm INT / Saline Lock ] IV Catheter Type [Right Upper Mid-line arm] IV Catheter Type [Right INT / Saline Lock Antecubital] IV Catheter Type [Left Upper INT / Saline Lock arm] IV Catheter Type [Left INT / Saline Lock Antecubital] IV Catheter Type [Right Peripheral IV Forearm] Active Medications - Current Medications Current Medications: Generic Name Dose Route Start Last Admin Trade Name Freq PRN Reason Stop Dose Admin Acetaminophen 650 mg 12/10/19 19:43 Tylenol PO Q4H PRN Pain MILD(1-3)/Fever >100.5/URIAS Diphenhydramine HCl 25 mg 12/14/19 11:06 12/20/19 23:22 Benadryl IV 25 mg Q6H PRN Administration Itching Enoxaparin Sodium 40 mg 12/11/19 22:00 12/20/19 21:26 Enoxaparin SUB-Q Not Given QDAY@2200 MALISSA Folic Acid 1 mg 12/10/19 20:00 12/20/19 10:30 Folvite PO 1 mg DAILY MALISSA Administration Hydromorphone HCl 1 mg 12/16/19 15:37 12/21/19 06:17 Dilaudid IV 1 mg Q6HR PRN Administration Pain , Severe (7-10) Hydroxyurea 500 mg 12/10/19 22:00 12/20/19 21:27 Hydroxyurea PO 500 mg BID MALISSA Administration Dextrose/Sodium Chloride 1,000 mls @ 125 mls/hr 12/10/19 20:00 12/20/19 22:30 D5ns IV 125 mls/hr DIRECT MALISSA Administration Cefepime HCl 2 gm in 100 mls @ 200 mls/hr 12/16/19 22:00 12/21/19 06:17 Cefepime/Ns 2 Gm/100 Ml IV 200 mls/hr Q8HR MALISSA Administration Protocol Magnesium Hydroxide 30 ml 12/11/19 08:59 Milk Of Magnesia PO Q4H PRN Constipation Metoclopramide HCl 10 mg 12/10/19 19:46 Reglan IV Q6H PRN Nausea And Vomiting Ondansetron HCl 4 mg 12/10/19 19:46 12/13/19 17:47 Zofran IV 4 mg Q8H PRN Administration Nausea And Vomiting Oxycodone HCl 10 mg 12/10/19 20:00 12/21/19 03:59 Roxicodone PO 10 mg Q6H PRN Administration Pain, Moderate (4-6) Sodium Chloride 10 ml 12/10/19 22:00 12/20/19 22:35 Sodium Chloride Flush Syringe 10 Ml IV 10 ml BID MALISSA Administration Sodium Chloride 10 ml 12/10/19 19:43 12/15/19 00:10 Sodium Chloride Flush Syringe 10 Ml IV 10 ml PRN PRN Administration LINE FLUSH Nutrition/Malnutrition Assess - Dietary Evaluation Nutrition/Malnutrition Findings: Nutrition Notes Start: 12/11/19 14:29 Freq: Status: Active Protocol: Document 12/17/19 13:10 LM (Rec: 12/17/19 13:14 LM [email or web address]) Nutrition Notes Initial or Follow up Reassessment Other Pertinent Diagnosis sickle cell crisis, anxiety, depression Current Diet Regular Labs/Tests Na 134 K 5.1 Pertinent Medications Reviewed Height 5 ft 10 in Weight 68.039 kg [place] Body Weight (kg) 75.45 BMI 21.5 Weight Status Appropriate Subjective/Other Information pt stated his appetite is better. Pt ate 80% of breakfast and is drinking Ensure. Percent of energy/protein needs met: 100%/100% Burn Absent Trauma Absent GI Symptoms None Current % PO Good (75-100%) Minimum of two criteria No Interpretation of Weight Loss (severe) >2% in 1 week #1 Nutrition Diagnosis Inadequate oral intake As Evidenced by Signs and Symptoms Pt eating 80% Diagnosis Progress(for reassessment Improved documentation) Is patient on ventilator? No Is Patient Ambulatory and/or Out of Bed Yes [facility] [ 2049.632 NUTR.MSJOOB] Calculation Used for Recommendations [facility] Additional Notes Protein: 54-68g (0.8-1g/kg) Fluid: 1ml/kcal Nutrition Intervention Change Diet Order: Continue regular diet Add Supplement/Snack (indicate name/kcal Ensure Enlive TID /protein ) Provides kCal: 1,050 Provides Protein (gm) 60 Goal #1 Meet at least 80% of energy and protein needs Anticipated Discharge Needs: Regular diet with ONS Follow-Up By: 12/23/19 Additional Comments F/U for stable intakes
[2019-12-21] MEDS: FOLIC ACID 1 MG TAB PO SCH (09:56)
[2019-12-21] MEDS: HYDROXYUREA 500 MG CAP PO SCH ×2 (09:56→21:59)
[2019-12-21] MEDS: D5W/0.9% NACL 1,000 ML IV SCH ×2 (13:05→23:24)
--- NOTE | 2019-12-21 14:45 | Progress Note ---
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 UA neg. Blood cx neg. CXR x 2 neg. Influenza neg. Venous US no DVT, COVID negative. DDx: acute chest syndrome, PE, pneumonia. No headaches so doubt meningitis, blood culture x 2 negative so doubt bacteremia, no cough or hypoxemia so doubt acute chest syndrome or pneumonia. Procal=0.3. markers for severe COVID elevated - ferritin>2000, CRP 19, Ddimer 1698, LDH 312, however can be seen on SCD #Elevated LFTs from SCD crisis: r/o cholecystitis (denies abdominal pain) Recommendations: check markers and CBC today continue cefepime 2g IV q 8 hour Day 6 of 7 monitor fever SCD crisis pain management per primary team Will follow. Gail Irizarry MD Infectious Diseases Director Of Admissions [facility] ([facility] M [phone] O [phone] Subjective Date of service: 12/21/19 Principal diagnosis: FUO Interval history: Feels some better still body aches, tmax 100.4 Objective - Exam Narrative Exam: General appearance: Alert in NAD Eyes: icteric sclerae, moist conjunctivae; no lid-lag; PERRLA HENT: Atraumatic; oropharynx clear Lungs: CTA CV: rrr Abdomen: Soft, non-tender; no masses or hepatosplenomegaly Extremities: no edema, no cyanosis, no joint effusion Skin: No rash. Psych: no agitated Neuro: alert and oriented x 3. Moving all extermities - Constitutional Vitals: Vital Signs Temp Pulse Resp BP Pulse Ox 98.3 F 91 H 18 120/65 99 12/21/19 12:00 12/21/19 12:00 12/21/19 12:00 12/21/19 12:00 12/21/19 12:00 Temperature -Last 24 Hours Temperature 98.3 F Temperature 98.4 F Temperature 98.4 F Temperature 98.5 F Temperature 100.4 F Temperature 98.3 F - Labs CBC & Chem 7: 12/18/19 15:04 12/15/19 16:30
[2019-12-21] MEDS: diphenhydrAMINE 50 MG/ML VIAL IV PRN (21:58)
[2019-12-21] MEDS: ENOXAPARIN 40 MG/0.4 ML INJ SUB-Q SCH (21:59)
[2019-12-22 01:59] LABS: C-Reactive Protein 5.4 mg/dL (0.00-1.30)
[2019-12-22] MEDS: HYDROmorphone 1 MG/1 ML INJ IV PRN ×4 (03:31→22:44)
[2019-12-22] MEDS: oxyCODONE 5 MG TAB PO PRN ×3 (06:04→20:16)
[2019-12-22] MEDS: CEFEPIME/NS 2 GM/100 ML 2 GM/100 ML BAG IV SCH (06:06)
[2019-12-22] MEDS: D5W/0.9% NACL 1,000 ML IV SCH (09:36)
[2019-12-22] MEDS: FOLIC ACID 1 MG TAB PO SCH (09:36)
[2019-12-22] MEDS: HYDROXYUREA 500 MG CAP PO SCH ×2 (09:36→21:50)
[2019-12-22 09:57] LABS: Hematocrit 24.9 % (35.5-45.6); Hemoglobin 8.3 gm/dl (11.8-15.2); Mean Corpuscular HGB Conc 34 % (32-34); Mean Corpuscular Volume 93 fl (84-94); Platelet Count 425 K/mm3 (140-440); Red Blood Count 2.69 M/mm3 (3.65-5.03)
[2019-12-22 10:09] LABS: Red Cell Distribution Width 23.9 % (13.2-15.2)
[2019-12-22 10:13] LABS: BUN/Creatinine Ratio 12; Blood Urea Nitrogen 7 mg/dL (9-20); Calcium 9.1 mg/dL (8.4-10.2); Hemolysis Index 23
--- NOTE | 2019-12-22 10:57 | Progress Note ---
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 UA neg. Blood cx neg. CXR x 2 neg. Influenza neg. Venous US no DVT, COVID negative. DDx: acute chest syndrome, PE, pneumonia. No headaches so doubt meningitis, blood culture x 2 negative so doubt bacteremia, no cough or hypoxemia so doubt acute chest syndrome or pneumonia. Procal=0.3. markers for severe COVID elevated - ferritin>2000, CRP 19-->5, Ddimer 1698, LDH 312, however can be seen on SCD. #Elevated LFTs from SCD crisis: r/o cholecystitis (denies abdominal pain) Recommendations: stop cefepime Day 7 of 7 monitor off abx SCD crisis pain management per primary team Will follow. Gail Irizarry MD Infectious Diseases Software Development Leader [facility] M [phone] O [phone] Subjective Date of service: 12/22/19 Principal diagnosis: FUO Interval history: Feels better still body aches, NO FEVER Objective - Exam Narrative Exam: General appearance: Alert in NAD Eyes: icteric sclerae, moist conjunctivae; no lid-lag; PERRLA HENT: Atraumatic; oropharynx clear Lungs: CTA CV: rrr Abdomen: Soft, non-tender; no masses or hepatosplenomegaly Extremities: no edema, no cyanosis, no joint effusion Skin: No rash. Psych: no agitated Neuro: alert and oriented x 3. Moving all extermities - Constitutional Vitals: Vital Signs Temp Pulse Resp BP Pulse Ox 98.1 F 70 17 107/63 96 12/22/19 06:03 12/22/19 06:03 12/22/19 08:15 12/22/19 06:03 12/22/19 06:03 Temperature -Last 24 Hours Temperature 98.1 F Temperature 99.6 F Temperature 98.6 F Temperature 98.3 F - Labs CBC & Chem 7: 12/22/19 09:26 12/22/19 09:26 Labs: Abnormal lab results 12/22/19 12/22/19 12/22/19 Range/Units 00:01 00:01 00:01 RBC (3.65-5.03) M/mm3 Hgb (11.8-15.2) gm/dl Hct (35.5-45.6) % RDW (13.2-15.2) % D-Dimer 1760.51 H (0-234) ng/mlDDU Carbon Dioxide (22-30) mmol/L BUN (9-20) mg/dL Creatinine (0.8-1.5) mg/dL Glucose (75-100) mg/dL Ferritin > 2000.0 H (13.0-400.0) ng/mL Lactate Dehydrogenase 279 H (91-180) units/L C-Reactive Protein 5.40 H (0.00-1.30) mg/dL 12/22/19 12/22/19 Range/Units 09:26 09:26 RBC 2.69 L (3.65-5.03) M/mm3 Hgb 8.3 L (11.8-15.2) gm/dl Hct 24.9 L (35.5-45.6) % RDW 23.9 H (13.2-15.2) % D-Dimer (0-234) ng/mlDDU Carbon Dioxide 20 L (22-30) mmol/L BUN 7 L (9-20) mg/dL Creatinine 0.6 L (0.8-1.5) mg/dL Glucose 130 H (75-100) mg/dL Ferritin (13.0-400.0) ng/mL Lactate Dehydrogenase (91-180) units/L C-Reactive Protein (0.00-1.30) mg/dL
--- NOTE | 2019-12-22 11:32 | Progress Note ---
Assessment and Plan Assessment and plan: SIRS/FUO. ?phlebitis (?IVDU), CT non contrasted shows right axillary mild LN with air bubbles in deep vessels subclavian. UA neg. Blood cx neg. CXR x 2 neg. Influenza neg. Venous US no DVT. DDx: COVID infection, parvovirus, acute chest syndrome, PE, pneumonia. 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 12/12/2019 Patient with sickle cell vaso-occlusive crisis. Slight improvement in pain. Continue current management. Hopefully dc home in 1-2 days 12/13/19 Patient with sickle cell with vaso-occlusive crisis. He is still in pain. has problems with iv access for iv Narcotics. iv nurse to re-evaluate. 12/14/19 Patient with sickle cell with vaso-occlusive crisis. says he is still in pain, asking for more Dilaudid. He is on Dilaudid 2mg iv q 3hr. Not stable for discharge yet. Continue iv fluid 12/15/2019. Patient with sickle cell with vaso-occlusive crisis. We will attempt to wean off of IV Dilaudid. Continue p.o. pain medications. 12/16/2019. Patient with SIRS. Significant leukocytosis and fever since yesterday. Consult ID for further evaluation. Chest x-ray and urinalysis negative. Initial blood cultures were negative. Repeat blood cultures pending. Continue empiric antibiotics. 12/17/2019. Patient still with persistent fevers. ID consulted. Obtain COVID test, influenza PCR, procalcitonin, CRP, d-dimer and ferritin. Follow-up CT chest, abdomen and pelvis. Follow-up venous ultrasound. Continue antibiotics of vancomycin and cefepime. 12/18/2019. Patient refused COVID testing. Continue to follow-up procalcitonin, CRP, d-dimer and ferritin levels. CT chest, abdomen and pelvis ordered but patient refused contrast. Continue vancomycin and cefepime. ID following. 12/19/2019. Fevers have resolved. CT non contrasted shows right axillary mild LN with air bubbles in deep vessels subclavian. ?phlebitis (?IVDU). Urine drug screen negative. COVID test pending. Continue vancomycin/cefepime per ID recommendations. Follow-up EBV/CMV antibody testing. 12/20/2019. Fevers have resolved. CT non contrasted shows right axillary mild LN with air bubbles in deep vessels subclavian. ?phlebitis (?IVDU). Patient denies IV drug abuse. Urine drug screen negative. COVID test negative. Continue antibiotics per ID recommendations. 12/21/2019. Patient with low-grade fever on 12/19 of 100.4. Infectious work-up essentially negative except CT non contrasted shows right axillary mild LN with air bubbles in deep vessels subclavian. ?phlebitis (?IVDU). Patient denies IV drug abuse. Urine drug screen negative. Continue antibiotics per ID recommendations. Blood cultures thus far negative. 12/22/2019 Patient with sickle cell vaso-occlusive crisis, then fever. he feels better. fever subsiding. no fever X 24 hrs . Hopefully dc home tomorrow. History Interval history: Generalized pain Fever subsiding Hospitalist Physical - Physical exam Narrative exam: GEN: Not in acute distress, lying in bed HEENT: Normocephalic, atraumatic, Neck: supple, No JVD Lungs: Clear to auscultation bilaterally, heart;S1 and S2 reg, no murmurs, rubs or gallop Abd:soft, non tender, non distended, normal bowel sounds, Ext: No edema, no clubbing, no cyanosis, Neuro: Awake,alert,oriented X3 , no focal signs, - Constitutional Vitals: Temp Pulse Resp BP Pulse Ox 97.9 F 66 18 104/42 96 12/22/19 08:46 12/22/19 08:05 12/22/19 08:46 12/22/19 08:46 12/22/19 06:03 General appearance: Present: no acute distress, well-nourished Results - Labs CBC & Chem 7: 12/22/19 09:26 12/22/19 09:26 Labs: Laboratory Last Values WBC 10.1 K/mm3 (4.5-11.0) 12/22/19 09:26 RBC 2.69 M/mm3 (3.65-5.03) L 12/22/19 09:26 Hgb 8.3 gm/dl (11.8-15.2) L 12/22/19 09:26 Hct 24.9 % (35.5-45.6) L 12/22/19 09:26 MCV 93 fl (84-94) 12/22/19 09:26 MCH 31 pg (28-32) 12/22/19 09:26 MCHC 34 % (32-34) 12/22/19 09:26 RDW 23.9 % (13.2-15.2) H 12/22/19 09:26 Plt Count 425 K/mm3 (140-440) 12/22/19 09:26 Lymph % (Auto) 11.3 % (13.4-35.0) L 12/18/19 15:04 [place] % (Auto) 14.3 % (0.0-7.3) H 12/18/19 15:04 Eos % (Auto) 2.3 % (0.0-4.3) 12/18/19 15:04 Baso % (Auto) 0.5 % (0.0-1.8) 12/18/19 15:04 Lymph # 1.9 K/mm3 (1.2-5.4) 12/18/19 15:04 [place] # 2.4 K/mm3 (0.0-0.8) H 12/18/19 15:04 Eos # 0.4 K/mm3 (0.0-0.4) 12/18/19 15:04 Baso # 0.1 K/mm3 (0.0-0.1) 12/18/19 15:04 Seg Neutrophils % 71.6 % (40.0-70.0) H 12/18/19 15:04 Seg Neutrophils # 11.7 K/mm3 (1.8-7.7) H 12/18/19 15:04 Percent Retic 3.26 % (0.78-2.58) H 12/15/19 16:30 D-Dimer 1760.51 ng/mlDDU (0-234) H 12/22/19 00:01 Sodium 137 mmol/L (137-145) 12/22/19 09:26 Potassium 4.2 mmol/L (3.6-5.0) 12/22/19 09:26 Chloride 103.6 mmol/L (98-107) 12/22/19 09:26 Carbon Dioxide 20 mmol/L (22-30) L 12/22/19 09:26 Anion Gap 18 mmol/L 12/22/19 09:26 BUN 7 mg/dL (9-20) L 12/22/19 09:26 Creatinine 0.6 mg/dL (0.8-1.5) L 12/22/19 09:26 Estimated GFR > 60 ml/min 12/22/19 09:26 BUN/Creatinine Ratio 12 % 12/22/19 09:26 Glucose 130 mg/dL (75-100) H 12/22/19 09:26 Hemoglobin A1c 4.9 % (4-6) 12/11/19 02:13 Calcium 9.1 mg/dL (8.4-10.2) 12/22/19 09:26 Ferritin > 2000.0 ng/mL (13.0-400.0) H 12/22/19 00:01 Total Bilirubin 1.90 mg/dL (0.1-1.2) H 12/11/19 02:13 AST 80 units/L (5-40) H 12/11/19 02:13 ALT 72 units/L (7-56) H 12/11/19 02:13 Alkaline Phosphatase 103 units/L (35-129) 12/11/19 02:13 Lactate Dehydrogenase 279 units/L (91-180) H 12/22/19 00:01 C-Reactive Protein 5.40 mg/dL (0.00-1.30) H 12/22/19 00:01 Total Protein 6.0 g/dL (6.3-8.2) L 12/11/19 02:13 Albumin 3.6 g/dL (3.9-5) L 12/11/19 02:13 Albumin/Globulin Ratio 1.5 % 12/11/19 02:13 Procalcitonin 0.35 ng/mL (<0.15) 12/22/19 00:01 Urine Color Yellow (Yellow) 12/15/19 19: Urine Turbidity Clear (Clear) 12/15/19 19: Urine pH 7.0 (5.0-7.0) 12/15/19: Ur Specific [place] 1.008 (1.003-1.030) 12/15/19 19: Urine Protein <15 mg/dl mg/dL (Negative) 12/15/19 19: Urine Glucose (UA) Neg mg/dL (Negative) 12/15/19 19: Urine Ketones Neg mg/dL (Negative) 12/15/19 19:29 Urine Blood Neg (Negative) 12/15/19 19:29 Urine Nitrite Neg (Negative) 12/15/19 19: Urine Bilirubin Neg (Negative) 12/15/19 19: Urine Urobilinogen 2.0 mg/dL (<2.0) 12/15/19 19:29 Ur Leukocyte Esterase Neg (Negative) 12/15/19 19:29 Urine WBC (Auto) 1.0 /HPF (0.0-6.0) 12/15/19 19: Urine RBC (Auto) 1.0 /HPF (0.0-6.0) 12/15/19 19: Vancomycin Trough 32.8 ug/mL (5.0-20.0) H 12/18/19 18:52 Urine Opiates Screen Presumptive negative 12/19/19 06:01 Urine Methadone Screen Presumptive negative 12/19/19 06:01 Ur Barbiturates Screen Presumptive negative 12/19/19 06:01 Ur Phencyclidine Scrn Presumptive negative 12/19/19 06:01 Ur Amphetamines Screen Presumptive negative 12/19/19 06:01 U Benzodiazepines Scrn Presumptive negative 12/19/19 06:01 Urine Cocaine Screen Presumptive negative 12/19/19 06:01 U Marijuana (THC) Screen Presumptive negative 12/19/19 06:01 Drugs of Abuse Note Disclamer 12/19/19 06:01 Coronavirus (PCR) Negative (Negative) 12/16/19 Unknown Hepatitis A IgM Ab Non-reactive (NonReactive) 12/11/19 01:41 Hep Bs Antigen Non-reactive (Negative) 12/11/19 01:41 Hep B Core IgM Ab Non-reactive (NonReactive) 12/11/19 01:41 Hepatitis C Antibody Non-reactive (NonReactive) 12/11/19 01:41 Influenza A (Rapid) Negative (Negative) 12/16/19 05:00 Influenza A (RT-PCR) Negative (Negative) 12/16/19 05:00 Influenza B (Rapid) Negative (Negative) 12/16/19 05:00 Influenza B (RT-PCR) Negative (Negative) 12/16/19 05:00 [place]/IV: Voiding Method Urinal IV Catheter Type [Left Forearm INT / Saline Lock ] IV Catheter Type [Right Upper Mid-line arm] IV Catheter Type [Right INT / Saline Lock Antecubital] IV Catheter Type [Left Upper INT / Saline Lock arm] IV Catheter Type [Left INT / Saline Lock Antecubital] IV Catheter Type [Right Peripheral IV Forearm] Active Medications - Current Medications Current Medications: Generic Name Dose Route Start Last Admin Trade Name Freq PRN Reason Stop Dose Admin Acetaminophen 650 mg 12/10/19 19:43 Tylenol PO Q4H PRN Pain MILD(1-3)/Fever >100.5/URIAS Diphenhydramine HCl 25 mg 12/14/19 11:06 12/21/19 21:58 Benadryl IV 25 mg Q6H PRN Administration Itching Enoxaparin Sodium 40 mg 12/11/19 22:00 12/21/19 21:59 Enoxaparin SUB-Q 40 mg QDAY@2200 MALISSA Administration Folic Acid 1 mg 12/10/19 20:00 12/22/19 09:36 Folvite PO 1 mg DAILY MALISSA Administration Hydromorphone HCl 1 mg 12/16/19 15:37 12/22/19 09:36 Dilaudid IV 1 mg Q6HR PRN Administration Pain , Severe (7-10) Hydroxyurea 500 mg 12/10/19 22:00 12/22/19 09:36 Hydroxyurea PO 500 mg BID MALISSA Administration Dextrose/Sodium Chloride 1,000 mls @ 125 mls/hr 12/10/19 20:00 12/22/19 09:36 D5ns IV 125 mls/hr DIRECT MALISSA Administration Magnesium Hydroxide 30 ml 12/11/19 08:59 Milk Of Magnesia PO Q4H PRN Constipation Metoclopramide HCl 10 mg 12/10/19 19:46 Reglan IV Q6H PRN Nausea And Vomiting Ondansetron HCl 4 mg 12/10/19 19:46 12/13/19 17:47 Zofran IV 4 mg Q8H PRN Administration Nausea And Vomiting Oxycodone HCl 10 mg 12/10/19 20:00 12/22/19 06:04 Roxicodone PO 10 mg Q6H PRN Administration Pain, Moderate (4-6) Sodium Chloride 10 ml 12/10/19 22:00 12/22/19 09:36 Sodium Chloride Flush Syringe 10 Ml IV 10 ml BID MALISSA Administration Sodium Chloride 10 ml 12/10/19 19:43 12/15/19 00:10 Sodium Chloride Flush Syringe 10 Ml IV 10 ml PRN PRN Administration LINE FLUSH Nutrition/Malnutrition Assess - Dietary Evaluation Nutrition/Malnutrition Findings: Nutrition Notes Start: 12/11/19 14:29 Freq: Status: Active Protocol: Document 12/17/19 13:10 LM (Rec: 12/17/19 13:14 LM [id number]) Nutrition Notes Initial or Follow up Reassessment Other Pertinent Diagnosis sickle cell crisis, anxiety, depression Current Diet Regular Labs/Tests Na 134 K 5.1 Pertinent Medications Reviewed Height 5 ft 10 in Weight 68.039 kg [place] Body Weight (kg) 75.45 BMI 21.5 Weight Status Appropriate Subjective/Other Information pt stated his appetite is better. Pt ate 80% of breakfast and is drinking Ensure. Percent of energy/protein needs met: 100%/100% Burn Absent Trauma Absent GI Symptoms None Current % PO Good (75-100%) Minimum of two criteria No Interpretation of Weight Loss (severe) >2% in 1 week #1 Nutrition Diagnosis Inadequate oral intake As Evidenced by Signs and Symptoms Pt eating 80% Diagnosis Progress(for reassessment Improved documentation) Is patient on ventilator? No Is Patient Ambulatory and/or Out of Bed Yes REE-([facility]-ambulatory/OOB) [ 2049.632 [id number]] Calculation Used for Recommendations [facility] Additional Notes Protein: 54-68g (0.8-1g/kg) Fluid: 1ml/kcal Nutrition Intervention Change Diet Order: Continue regular diet Add Supplement/Snack (indicate name/kcal Ensure Enlive TID /protein ) Provides kCal: 1,050 Provides Protein (gm) 60 Goal #1 Meet at least 80% of energy and protein needs Anticipated Discharge Needs: Regular diet with ONS Follow-Up By: 12/23/19 Additional Comments F/U for stable intakes
[2019-12-22] MEDS: diphenhydrAMINE 50 MG/ML VIAL IV PRN (14:21)
[2019-12-22] MEDS: ENOXAPARIN 40 MG/0.4 ML INJ SUB-Q SCH ×2 (21:50→21:52)
[2019-12-23] MEDS: D5W/0.9% NACL 1,000 ML IV SCH ×2 (00:51→08:40)
[2019-12-23] MEDS: oxyCODONE 5 MG TAB PO PRN ×2 (01:59→08:39)
[2019-12-23] MEDS: HYDROmorphone 1 MG/1 ML INJ IV PRN (04:46)
[2019-12-23 05:01] VITALS: BP 105/47
--- NOTE | 2019-12-23 08:46 | Discharge Summary ---
Providers - Providers Date of Admission: 12/10/19 17:07 Date of discharge: 12/23/19 Attending physician: ROGELIO KHAN 12/11/19 13:14 Consult to Dietitian/Nutrition [CONS] Routine Physician Instructions: Reason For Exam: Reason for Consult: Pt needs oral supplement 12/13/19 11:45 Midline [Consult to PICC Line RN] [CONS] Routine Reason For Exam: poor venous access. Type Line:: Midline 12/16/19 12:08 Consult to Physician [CONS] Routine Comment: Consulting Provider: JESUS MILLER Physician Instructions: Reason For Exam: fever Primary care physician: REGISTERED NURSE MIDWIFE Hospitalization Condition: Fair Hospital course: Patient is a 44 yo male with history of sickle cell disease who presented with generalized body pain. He was seen and evaluated in Emergency Department. he denied fever, denied chest pain. Patiently recently moved from [place] 3 months ago. he was diagnosed with sickle cell vaso-occlusive crisis. He was started on iv fluids, narcotics and admitted. Pain persisted, he had fever so was evaluated by ID Physician, put on Cefepime, Vancomycin, Levaquin. He improved, fever resolved and he was discharged home on 12/23/2019. SIRS/FUO. ?phlebitis (?IVDU), CT non contrasted shows right axillary mild LN with air bubbles in deep vessels subclavian. UA neg. Blood cx neg. CXR x 2 neg. Sickle cell vaso-occlusive crisis Treated wiyth iv Narcotics, iv fluid, supportive Hypokalemia Now resolved Hyponatremia iv fluids Elevated LFT Will monitor. 12/12/2019 Patient with sickle cell vaso-occlusive crisis. Slight improvement in pain. Continue current management. Hopefully dc home in 1-2 days 12/13/19 Patient with sickle cell with vaso-occlusive crisis. He is still in pain. has problems with iv access for iv Narcotics. iv nurse to re-evaluate. 12/14/19 Patient with sickle cell with vaso-occlusive crisis. says he is still in pain, asking for more Dilaudid. He is on Dilaudid 2mg iv q 3hr. Not stable for discharge yet. Continue iv fluid 12/15/2019. Patient with sickle cell with vaso-occlusive crisis. We will attempt to wean off of IV Dilaudid. Continue p.o. pain medications. 12/16/2019. Patient with SIRS. Significant leukocytosis and fever since yesterday. Consult ID for further evaluation. Chest x-ray and urinalysis negative. Initial blood cultures were negative. Repeat blood cultures pending. Continue empiric antibiotics. 12/17/2019. Patient still with persistent fevers. ID consulted. Obtain COVID test, influenza PCR, procalcitonin, CRP, d-dimer and ferritin. Follow-up CT chest, abdomen and pelvis. Follow-up venous ultrasound. Continue antibiotics of vancomycin and cefepime. 12/18/2019. Patient refused COVID testing. Continue to follow-up procalcitonin, CRP, d-dimer and ferritin levels. CT chest, abdomen and pelvis ordered but patient refused contrast. Continue vancomycin and cefepime. ID following. 12/19/2019. Fevers have resolved. CT non contrasted shows right axillary mild LN with air bubbles in deep vessels subclavian. ?phlebitis (?IVDU). Urine drug screen negative. COVID test pending. Continue vancomycin/cefepime per ID recommendations. Follow-up EBV/CMV antibody testing. 12/20/2019. Fevers have resolved. CT non contrasted shows right axillary mild LN with air bubbles in deep vessels subclavian. ?phlebitis (?IVDU). Patient denies IV drug abuse. Urine drug screen negative. COVID test negative. Continue antibiotics per ID recommendations. 12/21/2019. Patient with low-grade fever on 12/19 of 100.4. Infectious work-up essentially negative except CT non contrasted shows right axillary mild LN with air bubbles in deep vessels subclavian. ?phlebitis (?IVDU). Patient denies IV d rug abuse. Urine drug screen negative. Continue antibiotics per ID recommendations. Blood cultures thus far negative. 12/22/2019 Patient with sickle cell vaso-occlusive crisis, then fever. he feels better. fever subsiding. no fever X 24 hrs . Hopefully dc home tomorrow. Total time spent on discharge, 35 mins Disposition: DC-01 TO HOME OR SELFCARE Core Measure Documentation - Palliative Care Palliative Care/ Comfort Measures: Not Applicable - Core Measures Any of the following diagnoses?: none Exam - Constitutional Vitals: Temp Pulse Resp BP Pulse Ox 98.0 F 68 20 105/47 99 12/23/19 03:19 12/23/19 06:23 12/23/19 08:39 12/23/19 03:19 12/23/19 04:01 Plan Activity: advance as tolerated Diet: regular Additional Instructions: 1. Follow up with PCP on discharge. 2. Follow up with Dr. Lucas, hematology in 1 week. 3. Follow up with Dr. Smith ID in 1 week [facility] - [facility]5 Days Prescriptions: Folic Acid [Folvite] 1 mg PO DAILY #30 tablet Hydroxyurea 500 mg PO BID #60 capsule Oxycodone HCl [oxyCODONE] 10 mg PO Q6H PRN #15 tablet PRN Reason: Pain
[2019-12-23] MEDS: FOLIC ACID 1 MG TAB PO SCH (10:30)
[2019-12-23] MEDS: HYDROXYUREA 500 MG CAP PO SCH (10:30)
== END 2019-12-23 12:45 | disposition home or self-care (01) | DRG 811 ==
LOC: ED 12:10 → 4A 17:07
PROVIDERS: ADMIT Internal Medicine; ATTEND Internal Medicine
PROC: 06HY33Z Insertion of Infusion Device into Lower Vein, Percutaneous Approach (ICD-10-PCS; principal; 2019-12-13)
DX: D57.00 Hb-SS disease with crisis, unspecified (principal); R65.11 Systemic inflammatory response syndrome (SIRS) of non-infectious origin with acute organ dysfunction; E87.1 Hypo-osmolality and hyponatremia; E87.6 Hypokalemia; F41.8 Other specified anxiety disorders; R74.0 Nonspecific elevation of levels of transaminase and lactic acid dehydrogenase [LDH]; I80.9 Phlebitis and thrombophlebitis of unspecified site; Z88.6 Allergy status to analgesic agent; Z86.718 Personal history of other venous thrombosis and embolism; Z90.49 Acquired absence of other specified parts of digestive tract; Z03.818 Encounter for observation for suspected exposure to other biological agents ruled out; Z82.49 Family history of ischemic heart disease and other diseases of the circulatory system
CPT/HCPCS: 36415; 71045; 71250; 74176; 80048; 80053; 80074; 80202; 80307; 81001; 82728; 83036; 83615; 84145; 85025; 85027; 85045; 85379; 86140; 86665; 87040; 87400; 87497; 93970; G0378; 87502; J0692; J1170; J1200; J1650; J1956; J2405; J3370; J7030; J7042; J7050; U0003

== ENCOUNTER 2020-01-10 07:13 | Emergency (ER) | payer MEDICARE ==
[2020-01-10 07:19] VITALS: BP 109/53
== END 2020-01-10 07:30 | disposition left against medical advice (07) ==
LOC: ED 07:13
DX: D57.1 Sickle-cell disease without crisis (principal); Z53.21 Procedure and treatment not carried out due to patient leaving prior to being seen by health care provider

== ENCOUNTER 2020-02-11 04:25 | Emergency (ER) | payer MEDICARE ==
[2020-02-11 04:36] VITALS: BP 116/27
== END 2020-02-11 05:15 | disposition left against medical advice (07) ==
LOC: ED 04:25
DX: D57.00 Hb-SS disease with crisis, unspecified (principal); Z53.21 Procedure and treatment not carried out due to patient leaving prior to being seen by health care provider